=== PATIENT | male | born 1975 | race Caucasian/White ===

== ENCOUNTER 2017-08-13 16:34 | Inpatient (IN) | payer OTHER ==
[2017-08-13 16:59] VITALS: BMI 22.6
--- NOTE | 2017-08-13 18:00 | HP ---
COWS - Scale Resting Pulse: 2= SD 101-120 Sweatin=Flushed/Facial Moisture Restless Observation: 1= Difficult to Sit Still Pupil Size: 2= Moderately Dilated Bone or Joint Aches: 2= Severe Diffuse Aches Runny Nose/ Eye Tearin= Runny Nose/Eyes GI Upset > 30mins: 3= Vomiting/Diarrhea Tremor Observation: 2= Slight Tremor Visible Yawning Observation: 1= 1-2x During Session Anxiety or Irritability: 2=Irritable/Anxious Goose Flesh Skin: 0=Smooth Skin COWS Score: 19 Admission ROS S - HPI Chief Complaint: Withdrawal sx. Allergies/Adverse Reactions: Allergies Allergy/AdvReac Type Severity Reaction Status Date / Time shrimp Allergy Verified 04/08/17 17:08 History of Present Illness: 42 y/o man with a long hx. of heroin dependence is admitted for detox. Pt. was here in March 2017, remained drug x 3-6 weeks then relapsed. Exam Limitations: No Limitations - Ebola screening Have you traveled outside of the country in the last 21 days: No Have you had contact with anyone from an Ebola affected area: No Have you been sick,other than usual withdrawal symptoms: No Do you have a fever: No - Review of Systems Constitutional: Diaphoresis EENT: reports: No Symptoms Reported Respiratory: reports: No Symptoms reported Cardiac: reports: No Symptoms Reported GI: reports: Nausea, Vomiting, Abdominal cramping : reports: No Symptoms Reported Musculoskeletal: reports: Back Pain, Joint Pain, Muscle Pain Integumentary: reports: Flushing, Sweating Neuro: reports: Tremors Endocrine: reports: No Symptoms Reported Hematology: reports: No Symptoms Reported Psychiatric: reports: No Sypmtoms Reported Other Systems: Reviewed and Negative Patient History - Patient Medical History Hx Anemia: No Hx Asthma: Yes Hx Chronic Obstructive Pulmonary Disease (COPD): No Hx Cancer: No Hx Cardiac Disorders: No Hx Congestive Heart Failure: No Hx Hypertension: No Hx Hypercholesterolemia: No Hx Pacemaker: No HX Cerebrovascular Accident: No Hx Seizures: No Hx Dementia: No Hx Diabetes: No Hx Gastrointestinal Disorders: No Hx Liver Disease: No Hx Genitourinary Disorders: No Hx Sexually Transmitted Disorders: No Hx Renal Disease (ESRD): No Hx Thyroid Disease: No Hx Human Immunodeficiency Virus (HIV): No Hx Hepatitis C: No Hx Depression: No Hx Suicide Attempt: No Hx Bipolar Disorder: No Hx Schizophrenia: No - Patient Surgical History Past Surgical History: No - PPD History Date: 04/10/17 Results: 0 mm PPD to be Administered?: No - Smoking Cessation Smoking history: Current every day smoker Have you smoked in the past 12 months: Yes Aproximately how many cigarettes per day: 10 Hx Chewing Tobacco Use: No Initiated information on smoking cessation: Yes 'Breaking Loose' booklet given: 08/13/17 - Substance & Tx. History Hx Alcohol Use: No Hx Substance Use: Yes Substance Use Type: Heroin Hx Substance Use Treatment: Yes (Detox here in 03/2017) - Substances Abused Heroin Route: Inhalation Frequency: Daily Amount used: 12 bags Age of first use: 36 Date of Last Use: 08/13/17 Family Disease History - Family Disease History Family Disease History: Diabetes: Father (HTN,OR), Heart Disease: Father, Respiratory: Mother Admission Physical Exam [facility] - Vital Signs Vital Signs: Vital Signs - 24 hr 08/13/17 16:56 Temperature 97.5 F L Pulse Rate 112 H Respiratory 18 Rate Blood Pressure 120/72 - Physical General Appearance: Yes: Tremorous, Irritable, Sweating, Anxious HEENTM: Yes: Nasal Congestion, Rhinorrhea Respiratory: Yes: Chest Non-Tender, Lungs Clear, Normal Breath Sounds Neck: Yes: Supple Breast: Yes: Breast Exam Deferred Cardiology: Yes: Regular Rhythm, Regular Rate, S1, S2 Abdominal: Yes: Normal Bowel Sounds, Non Tender, Soft Genitourinary: Yes: Within Normal Limits Back: Yes: Within Normal Limits Musculoskeletal: Yes: Within Normal Limits Extremities: Yes: Tremors Neurological: Yes: Fully Oriented, Alert Integumentary: Yes: Diaphoresis Lymphatic: Yes: Within Normal Limits - Diagnostic (1) Opioid dependence with withdrawal Current Visit: Yes Status: Acute (2) Asthma Current Visit: Yes Status: Chronic Qualifiers: Asthma severity: mild intermittent Asthma complication type: uncomplicated Qualified Code(s): J45.20 - Mild intermittent asthma, uncomplicated; J45.20 - Mild intermittent asthma, uncomplicated; J45.20 - Mild intermittent asthma, uncomplicated Cleared for Admission B[facility] - Detox or Rehab [facility] Level of Care: Medically Managed Detox Regimen/Protocol: Methadone [facility] Breath Alcohol Content Breath Alcohol Content: 0 Urine Drug Screen - Results Drug Screen Negative: No Urine Drug Screen Results: OPI-Opiates
[2017-08-13] MEDS ORDERED: guaiFENesin/D-METHORPHAN HB 10 ML UNIT-DOSE CUPS PO PRN (18:05)
[2017-08-13] MEDS ORDERED: hydrOXYzine PAMOATE 50 MG CAPSULE (FP) PO PRN (18:05)
[2017-08-13] MEDS ORDERED: LOPERAMIDE HCL 2 MG CAPSULE PO PRN (18:05)
[2017-08-13] MEDS ORDERED: MAG HYDROX/AL HYDROX/SIMETH 30 ML UNIT-DOSE CUP PO PRN (18:05)
[2017-08-13] MEDS ORDERED: IBUPROFEN 400 MG TABLET (FP) PO PRN (18:05)
[2017-08-13] MEDS ORDERED: MAGNESIUM CITRATE 300 ML BOTTLE PO PRN (18:05)
[2017-08-13] MEDS ORDERED: MAGNESIUM HYDROX 2400MG/30ML ORAL SUSPENSION 30 ML CUP PO PRN (18:05)
[2017-08-13] MEDS ORDERED: NICOTINE POLACRILEX 2 MG GUM BC PRN (18:05)
[2017-08-13] MEDS ORDERED: METHADONE HCL 10 MG TABLET (FOR DETOX USE ONLY) PO ONE ×2 (18:05→23:00)
[2017-08-13] MEDS ORDERED: MENTHOL/PHENOL 1 EACH UD MM PRN (18:05)
[2017-08-13] MEDS ORDERED: P-EPHED 60MG/TRIPROLIDI 2.5MG TABLET PO PRN (18:05)
[2017-08-13] MEDS ORDERED: ACETAMINOPHEN 325 MG TABLET (FP) PO PRN (18:05)
[2017-08-13] MEDS ORDERED: ALBUTEROL SO4 18 GM HFA INHALER IH PRN (18:07)
[2017-08-13] MEDS: NICOTINE 21 MG/24 HOURS TOPICAL PATCH TD SCH (18:47)
[2017-08-13] MEDS: diazePAM 5 MG TABLET PO PRN (18:47)
[2017-08-13 20:00] LABS: URINE APPEARANCE SLCLOUDY; URINE BILIRUBIN NEGATIVE (NEGATIVE); URINE BLOOD 1+ (NEGATIVE); URINE COLOR YELLOW; URINE GLUCOSE (UA) NEGATIVE (NEGATIVE); URINE KETONE TRACE (NEGATIVE); URINE NITRITE NEGATIVE (NEGATIVE); URINE UROBILINOGEN NEGATIVE mg/dL (0.2-1.0)
[2017-08-13 20:07] LABS: URINE PROTEIN 1+ (NEGATIVE)
[2017-08-13 20:08] LABS: URINE HYALINE CAST 31 /lpf; URINE MUCUS MANY; URINE RBC 2 /hpf (0-3); URINE WBC 7 /hpf (3-5)
[2017-08-13] MEDS: diphenhydrAMINE HCL 50 MG CAPSULE PO PRN (22:36)
[2017-08-13] MEDS: THIAMINE HCL 100 MG TABLET (FP) PO SCH (22:36)
[2017-08-13 22:55] LABS: URINE LEUK ESTERASE Negative (NEGATIVE)
[2017-08-14] MEDS: diazePAM 5 MG TABLET PO PRN ×3 (06:52→20:21)
[2017-08-14 09:53] LABS: MCH 29.5 pg (25.7-33.7); MCHC 33.6 g/dl (32.0-35.9); MEAN PLT VOLUME 7.6 fl (7.5-11.1); PLATELET COUNT 252 K/MM3 (134-434); RDW 13.2 % (11.9-15.9); WHITE BLOOD COUNT 5.4 K/mm3 (4.0-10.0)
[2017-08-14 09:58] LABS: ALBUMIN 3.2 g/dl (3.4-5.0); ANION GAP 7 (8-16); CO2 27 mmol/L (21-32); CREATININE 0.8 mg/dL (0.7-1.3); GLUCOSE,RANDOM 81 mg/dL (74-106); SGOT/AST 14 U/L (15-37); SGPT/ALT 20 U/L (12-78); TOT PROT 5.8 g/dl (6.4-8.2)
[2017-08-14 09:59] LABS: ALK PHOS 86 U/L (45-117); BILIRUBIN,TOTAL 0.3 mg/dL (0.2-1.0)
[2017-08-14] MEDS ORDERED: METHADONE HCL 10 MG TABLET (FOR DETOX USE ONLY) PO ONE (10:00)
[2017-08-14] MEDS: PRENATAL VITAMINS W/ FOLIC ACID TABLET (FP) PO SCH (10:30)
[2017-08-14] MEDS: NICOTINE 21 MG/24 HOURS TOPICAL PATCH TD SCH (10:32)
--- NOTE | 2017-08-14 11:59 | PN ---
BHS COWS - Scale Resting Pulse: 0= AR 80 or Below Sweatin= Chills/Flushing Restless Observation: 3= Extraneous Movement Pupil Size: 0= Normal to Room Light Bone or Joint Aches: 4=Acute Joint/Muscle Pain Runny Nose/ Eye Tearin= Nasal Congestion GI Upset > 30mins: 1= Stomach Cramp Tremor Observation of Outstretched Hands: 2= Slight Tremor Visible Yawning Observation: 1= 1-2x During Session Anxiety or Irritability: 0= None Goose Flesh Skin: 0=Smooth Skin COWS Score: 13 BHS Progress Note (SOAP) Subjective: SLIGHT ANXIETY,CHILLS/SWEATS, FATIGUE, "SLUGGISH". Objective: 08/14/17 11:57 Vital Signs Temperature 98.1 F 08/14/17 10:15 Pulse Rate 67 08/14/17 10:15 Respiratory Rate 20 08/14/17 10:15 Blood Pressure 118/68 08/14/17 10:15 O2 Sat by Pulse Oximetry (%) Laboratory Last Values WBC 5.4 K/mm3 (4.0-10.0) 08/14/17 07:00 RBC 4.43 M/mm3 (4.00-5.60) 08/14/17 07:00 Hgb 13.1 GM/dL (11.7-16.9) 08/14/17 07:00 Hct 39.0 % (35.4-49) 08/14/17 07:00 MCV 88.0 fl (80-96) 08/14/17 07:00 MCH 29.5 pg (25.7-33.7) 08/14/17 07:00 MCHC 33.6 g/dl (32.0-35.9) 08/14/17 07:00 RDW 13.2 % (11.9-15.9) 08/14/17 07:00 Plt Count 252 K/MM3 (134-434) 08/14/17 07:00 MPV 7.6 fl (7.5-11.1) 08/14/17 07:00 Sodium 137 mmol/L (136-145) 08/14/17 07:00 Potassium 4.3 mmol/L (3.5-5.1) 08/14/17 07:00 Chloride 103 mmol/L (98-107) 08/14/17 07:00 Carbon Dioxide 27 mmol/L (21-32) 08/14/17 07:00 Anion Gap 7 (8-16) L 08/14/17 07:00 BUN 19 mg/dL (7-18) H D 08/14/17 07:00 Creatinine 0.8 mg/dL (0.7-1.3) 08/14/17 07:00 Creat Clearance w eGFR > 60 (>60) 08/14/17 07:00 Random Glucose 81 mg/dL (74-106) 08/14/17 07:00 Calcium 8.0 mg/dL (8.5-10.1) L 08/14/17 07:00 Total Bilirubin 0.3 mg/dL (0.2-1.0) D 08/14/17 07:00 AST 14 U/L (15-37) L D 08/14/17 07:00 ALT 20 U/L (12-78) D 08/14/17 07:00 Alkaline Phosphatase 86 U/L (45-117) 08/14/17 07:00 Total Protein 5.8 g/dl (6.4-8.2) L 08/14/17 07:00 Albumin 3.2 g/dl (3.4-5.0) L 08/14/17 07:00 Urine Color Yellow 08/13/17 18:36 Urine Appearance Slcloudy 08/13/17 18:36 Urine pH 6.0 (5.0-8.0) 08/13/17 18:36 Ur Specific [place] 1.015 (1.005-1.025) 08/13/17 18:36 Urine Protein 1+ (NEGATIVE) H 08/13/17 18:36 Urine Glucose (UA) Negative (NEGATIVE) 08/13/17 18:36 Urine Ketones Trace (NEGATIVE) H 08/13/17 18:36 Urine Blood 1+ (NEGATIVE) H 08/13/17 18:36 Urine Nitrite Negative (NEGATIVE) 08/13/17 18:36 Urine Bilirubin Negative (NEGATIVE) 08/13/17 18:36 Urine Urobilinogen Negative mg/dL (0.2-1.0) 08/13/17 18:36 Ur Leukocyte Esterase Negative (NEGATIVE) 08/13/17 18:36 Urine RBC 2 /hpf (0-3) 08/13/17 18:36 Urine WBC 7 /hpf (3-5) 08/13/17 18:36 Ur Epithelial Cells Rare /hpf (FEW) 08/13/17 18:36 Hyaline Casts 31 /lpf 08/13/17 18:36 Urine Mucus Many 08/13/17 18:36 RPR Titer Nonreactive (NONREACTIVE) 08/14/17 07:00 Assessment: 08/14/17 11:59 WITHDRAWAL SX Plan: CONTINUE DETOX INCREASE PO FLUIDS.
[2017-08-14] MEDS ORDERED: PNEUMOCOCCAL 23 VACCINE 0.5 ML VIAL IM ONE (12:00)
[2017-08-14] MEDS ORDERED: PNEUMOC 13-VAL CONJ-DIP CRM/PF 0.5 ML DISP.SYRIN IM ONE (12:00)
--- NOTE | 2017-08-14 14:52 | EKG ---
Test Reason : Blood Pressure : / mmHG Vent. Rate : 063 BPM Atrial Rate : 063 BPM P-R Int : 134 ms QRS Dur : 088 ms QT Int : 406 ms P-R-T Axes : 043 071 045 degrees QTc Int : 415 ms NORMAL SINUS RHYTHM NORMAL ECG WHEN COMPARED WITH ECG OF 08-APR-2017 17:28, NO SIGNIFICANT CHANGE WAS FOUND Confirmed by RANDY THIBODEAUX MD ([id number]) on 08/14/2017 2:52:37 PM Referred By: Confirmed By:RANDY THIBODEAUX MD
[2017-08-14] MEDS: diphenhydrAMINE HCL 50 MG CAPSULE PO PRN (22:11)
[2017-08-14] MEDS: THIAMINE HCL 100 MG TABLET (FP) PO SCH (22:11)
[2017-08-15] MEDS: diazePAM 5 MG TABLET PO PRN ×4 (04:43→22:07)
[2017-08-15] MEDS ORDERED: METHADONE HCL 5 MG TABLET (FOR DETOX USE ONLY) PO ONE (10:00)
[2017-08-15] MEDS: PRENATAL VITAMINS W/ FOLIC ACID TABLET (FP) PO SCH (10:35)
[2017-08-15] MEDS: NICOTINE 21 MG/24 HOURS TOPICAL PATCH TD SCH (10:36)
--- NOTE | 2017-08-15 10:59 | PN ---
BHS COWS - Scale Resting Pulse: 1= [place] 81-100 Sweatin= Chills/Flushing Restless Observation: 3= Extraneous Movement Pupil Size: 0= Normal to Room Light Bone or Joint Aches: 4=Acute Joint/Muscle Pain Runny Nose/ Eye Tearin= Nasal Congestion GI Upset > 30mins: 1= Stomach Cramp Tremor Observation of Outstretched Hands: 1= Tremor [place], Not Seen Yawning Observation: 1= 1-2x During Session Anxiety or Irritability: 2=Irritable/Anxious Goose Flesh Skin: 0=Smooth Skin COWS Score: 15 BHS Progress Note (SOAP) Subjective: ANXIETY,SWEATS,FATIGUE. Objective: 08/15/17 10:59 Vital Signs Temperature 98.7 F 08/15/17 09:35 Pulse Rate 89 08/15/17 09:35 Respiratory Rate 18 08/15/17 09:35 Blood Pressure 132/88 08/15/17 09:35 O2 Sat by Pulse Oximetry (%) Laboratory Last Values WBC 5.4 K/mm3 (4.0-10.0) 08/14/17 07:00 RBC 4.43 M/mm3 (4.00-5.60) 08/14/17 07:00 Hgb 13.1 GM/dL (11.7-16.9) 08/14/17 07:00 Hct 39.0 % (35.4-49) 08/14/17 07:00 MCV 88.0 fl (80-96) 08/14/17 07:00 MCH 29.5 pg (25.7-33.7) 08/14/17 07:00 MCHC 33.6 g/dl (32.0-35.9) 08/14/17 07:00 RDW 13.2 % (11.9-15.9) 08/14/17 07:00 Plt Count 252 K/MM3 (134-434) 08/14/17 07:00 MPV 7.6 fl (7.5-11.1) 08/14/17 07:00 Sodium 137 mmol/L (136-145) 08/14/17 07:00 Potassium 4.3 mmol/L (3.5-5.1) 08/14/17 07:00 Chloride 103 mmol/L (98-107) 08/14/17 07:00 Carbon Dioxide 27 mmol/L (21-32) 08/14/17 07:00 Anion Gap 7 (8-16) L 08/14/17 07:00 BUN 19 mg/dL (7-18) H D 08/14/17 07:00 Creatinine 0.8 mg/dL (0.7-1.3) 08/14/17 07:00 Creat Clearance w eGFR > 60 (>60) 08/14/17 07:00 Random Glucose 81 mg/dL (74-106) 08/14/17 07:00 Calcium 8.0 mg/dL (8.5-10.1) L 08/14/17 07:00 Total Bilirubin 0.3 mg/dL (0.2-1.0) D 08/14/17 07:00 AST 14 U/L (15-37) L D 08/14/17 07:00 ALT 20 U/L (12-78) D 08/14/17 07:00 Alkaline Phosphatase 86 U/L (45-117) 08/14/17 07:00 Total Protein 5.8 g/dl (6.4-8.2) L 08/14/17 07:00 Albumin 3.2 g/dl (3.4-5.0) L 08/14/17 07:00 Urine Color Yellow 08/13/17 18:36 Urine Appearance Slcloudy 08/13/17 18:36 Urine pH 6.0 (5.0-8.0) 08/13/17 18:36 Ur Specific [place] 1.015 (1.005-1.025) 08/13/17 18:36 Urine Protein 1+ (NEGATIVE) H 08/13/17 18:36 Urine Glucose (UA) Negative (NEGATIVE) 08/13/17 18:36 Urine Ketones Trace (NEGATIVE) H 08/13/17 18:36 Urine Blood 1+ (NEGATIVE) H 08/13/17 18:36 Urine Nitrite Negative (NEGATIVE) 08/13/17 18:36 Urine Bilirubin Negative (NEGATIVE) 08/13/17 18:36 Urine Urobilinogen Negative mg/dL (0.2-1.0) 08/13/17 18:36 Ur Leukocyte Esterase Negative (NEGATIVE) 08/13/17 18:36 Urine RBC 2 /hpf (0-3) 08/13/17 18:36 Urine WBC 7 /hpf (3-5) 08/13/17 18:36 Ur Epithelial Cells Rare /hpf (FEW) 08/13/17 18:36 Hyaline Casts 31 /lpf 08/13/17 18:36 Urine Mucus Many 08/13/17 18:36 RPR Titer Nonreactive (NONREACTIVE) 08/14/17 07:00 Assessment: 08/15/17 10:59 WITHDRAWAL SX Plan: CONTINUE DETOX INCREASE PO FLUIDS.
[2017-08-15] MEDS: THIAMINE HCL 100 MG TABLET (FP) PO SCH (22:07)
[2017-08-15] MEDS: diphenhydrAMINE HCL 50 MG CAPSULE PO PRN (22:07)
[2017-08-16] MEDS: diazePAM 5 MG TABLET PO PRN ×3 (02:27→15:10)
[2017-08-16] MEDS ORDERED: METHADONE HCL 5 MG TABLET (FOR DETOX USE ONLY) PO ONE (10:00)
[2017-08-16] MEDS: PRENATAL VITAMINS W/ FOLIC ACID TABLET (FP) PO SCH (10:41)
[2017-08-16] MEDS: NICOTINE 21 MG/24 HOURS TOPICAL PATCH TD SCH (10:41)
--- NOTE | 2017-08-16 15:22 | PN ---
BHS Progress Note (SOAP) Subjective: Tremors, Interrupted sleep, Anxious. Objective: PT. A & O X 3. NO ACUTE DISTRESS. PT. DENIES CHEST PAIN. 08/16/17 15:21 Vital Signs Temperature 98.2 F 08/16/17 13:41 Pulse Rate 92 H 08/16/17 13:41 Respiratory Rate 16 08/16/17 13:41 Blood Pressure 130/87 08/16/17 13:41 O2 Sat by Pulse Oximetry (%) Laboratory Tests 08/13/17 08/14/17 08/14/17 18:36 07:00 07:00 WBC 5.4 RBC 4.43 Hgb 13.1 Hct 39.0 MCV 88.0 MCH 29.5 MCHC 33.6 RDW 13.2 Plt Count 252 MPV 7.6 Sodium 137 Potassium 4.3 Chloride 103 Carbon Dioxide 27 Anion Gap 7 L BUN 19 H D Creatinine 0.8 Creat Clearance w eGFR > 60 Random Glucose 81 Calcium 8.0 L Total Bilirubin 0.3 D AST 14 L D ALT 20 D Alkaline Phosphatase 86 Total Protein 5.8 L Albumin 3.2 L Urine Color Yellow Urine Appearance Slcloudy Urine pH 6.0 Ur Specific [place] 1.015 Urine Protein 1+ H Urine Glucose (UA) Negative Urine Ketones Trace H Urine Blood 1+ H Urine Nitrite Negative Urine Bilirubin Negative Urine Urobilinogen Negative Ur Leukocyte Esterase Negative Urine RBC 2 Urine WBC 7 Ur Epithelial Cells Rare Hyaline Casts 31 Urine Mucus Many RPR Titer 08/14/17 07:00 WBC RBC Hgb Hct MCV MCH MCHC RDW Plt Count MPV Sodium Potassium Chloride Carbon Dioxide Anion Gap BUN Creatinine Creat Clearance w eGFR Random Glucose Calcium Total Bilirubin AST ALT Alkaline Phosphatase Total Protein Albumin Urine Color Urine Appearance Urine pH Ur Specific [place] Urine Protein Urine Glucose (UA) Urine Ketones Urine Blood Urine Nitrite Urine Bilirubin Urine Urobilinogen Ur Leukocyte Esterase Urine RBC Urine WBC Ur Epithelial Cells Hyaline Casts Urine Mucus RPR Titer Nonreactive LABS NOTED. Assessment: 08/16/17 15:21 WITHDRAWAL SYMPTOMS. Plan: CONTINUE DETOX.
[2017-08-16] MEDS: diphenhydrAMINE HCL 50 MG CAPSULE PO PRN (22:02)
[2017-08-16] MEDS: THIAMINE HCL 100 MG TABLET (FP) PO SCH (22:02)
[2017-08-17] MEDS ORDERED: METHADONE HCL 10 MG TABLET (FOR DETOX USE ONLY) PO ONE (10:00)
[2017-08-17] MEDS: NICOTINE 21 MG/24 HOURS TOPICAL PATCH TD SCH (10:40)
[2017-08-17] MEDS: PRENATAL VITAMINS W/ FOLIC ACID TABLET (FP) PO SCH (10:40)
--- NOTE | 2017-08-17 13:32 | PN ---
BHS Progress Note (SOAP) Subjective: Sweating, Tremors, Fatigue. Objective: PT. A & O X 3. NO ACUTE DISTRESS. 08/17/17 13:30 Vital Signs Temperature 98.8 F 08/17/17 09:13 Pulse Rate 79 08/17/17 09:13 Respiratory Rate 18 08/17/17 09:13 Blood Pressure 129/85 08/17/17 09:13 O2 Sat by Pulse Oximetry (%) Laboratory Tests 08/13/17 08/14/17 08/14/17 18:36 07:00 07:00 WBC 5.4 RBC 4.43 Hgb 13.1 Hct 39.0 MCV 88.0 MCH 29.5 MCHC 33.6 RDW 13.2 Plt Count 252 MPV 7.6 Sodium 137 Potassium 4.3 Chloride 103 Carbon Dioxide 27 Anion Gap 7 L BUN 19 H D Creatinine 0.8 Creat Clearance w eGFR > 60 Random Glucose 81 Calcium 8.0 L Total Bilirubin 0.3 D AST 14 L D ALT 20 D Alkaline Phosphatase 86 Total Protein 5.8 L Albumin 3.2 L Urine Color Yellow Urine Appearance Slcloudy Urine pH 6.0 Ur Specific [place] 1.015 Urine Protein 1+ H Urine Glucose (UA) Negative Urine Ketones Trace H Urine Blood 1+ H Urine Nitrite Negative Urine Bilirubin Negative Urine Urobilinogen Negative Ur Leukocyte Esterase Negative Urine RBC 2 Urine WBC 7 Ur Epithelial Cells Rare Hyaline Casts 31 Urine Mucus Many RPR Titer 08/14/17 07:00 WBC RBC Hgb Hct MCV MCH MCHC RDW Plt Count MPV Sodium Potassium Chloride Carbon Dioxide Anion Gap BUN Creatinine Creat Clearance w eGFR Random Glucose Calcium Total Bilirubin AST ALT Alkaline Phosphatase Total Protein Albumin Urine Color Urine Appearance Urine pH Ur Specific [place] Urine Protein Urine Glucose (UA) Urine Ketones Urine Blood Urine Nitrite Urine Bilirubin Urine Urobilinogen Ur Leukocyte Esterase Urine RBC Urine WBC Ur Epithelial Cells Hyaline Casts Urine Mucus RPR Titer Nonreactive LABS NOTED. Assessment: 08/17/17 13:31 WITHDRAWAL SYMPTOMS. Plan: CONTINUE DETOX.
[2017-08-17] MEDS: diphenhydrAMINE HCL 50 MG CAPSULE PO PRN (22:09)
[2017-08-17] MEDS: THIAMINE HCL 100 MG TABLET (FP) PO SCH (22:37)
[2017-08-18] MEDS ORDERED: METHADONE HCL 5 MG TABLET (FOR DETOX USE ONLY) PO ONE (06:00)
[2017-08-18 06:06] VITALS: BP 137/70; PULSE 62; TEMP 97.3
--- NOTE | 2017-08-18 11:49 | DS ---
[facility] Detox Discharge Summary Admission Date: 08/13/17 Discharge Date: 08/18/17 - History Present History: Opioid Dependence Additional Comments: PATIENT ADVISED TO FOLLOW-UP WITH LOCAL 12-STEP / NA OUTPATIENT PROGRAM AFTER DISCHARGE FROM DETOX FOR AFTERCARE. PATIENT WAS DISCHARGED FROM DETOX UNIT IN STABLE MEDICAL CONDITION. Pertinent Past History: Asthma, Nicotine Dependence. - Physical Exam Results Vital Signs: Vital Signs Temperature 97.3 F L 08/18/17 06:05 Pulse Rate 62 08/18/17 06:05 Respiratory Rate 18 08/18/17 06:05 Blood Pressure 137/70 08/18/17 06:05 O2 Sat by Pulse Oximetry (%) Pertinent Admission Physical Exam Findings: WITHDRAWAL SYMPTOMS. Laboratory Tests 08/13/17 08/14/17 08/14/17 18:36 07:00 07:00 WBC 5.4 RBC 4.43 Hgb 13.1 Hct 39.0 MCV 88.0 MCH 29.5 MCHC 33.6 RDW 13.2 Plt Count 252 MPV 7.6 Sodium 137 Potassium 4.3 Chloride 103 Carbon Dioxide 27 Anion Gap 7 L BUN 19 H D Creatinine 0.8 Creat Clearance w eGFR > 60 Random Glucose 81 Calcium 8.0 L Total Bilirubin 0.3 D AST 14 L D ALT 20 D Alkaline Phosphatase 86 Total Protein 5.8 L Albumin 3.2 L Urine Color Yellow Urine Appearance Slcloudy Urine pH 6.0 Ur Specific [place] 1.015 Urine Protein 1+ H Urine Glucose (UA) Negative Urine Ketones Trace H Urine Blood 1+ H Urine Nitrite Negative Urine Bilirubin Negative Urine Urobilinogen Negative Ur Leukocyte Esterase Negative Urine RBC 2 Urine WBC 7 Ur Epithelial Cells Rare Hyaline Casts 31 Urine Mucus Many RPR Titer 08/14/17 07:00 WBC RBC Hgb Hct MCV MCH MCHC RDW Plt Count MPV Sodium Potassium Chloride Carbon Dioxide Anion Gap BUN Creatinine Creat Clearance w eGFR Random Glucose Calcium Total Bilirubin AST ALT Alkaline Phosphatase Total Protein Albumin Urine Color Urine Appearance Urine pH Ur Specific [place] Urine Protein Urine Glucose (UA) Urine Ketones Urine Blood Urine Nitrite Urine Bilirubin Urine Urobilinogen Ur Leukocyte Esterase Urine RBC Urine WBC Ur Epithelial Cells Hyaline Casts Urine Mucus RPR Titer Nonreactive LABS NOTED. - Treatment Hospital Course: Detox Protocol Followed, Detoxed Safely, Responded well, Discharged Condition Good Patient has Accepted a Rehab Referral to: NO. PT ADVISED TO FOLLOW-UP WITH LOCAL 12-STEP/NA GROUPS FOR AFTERCARE. - Medication Discharge Medications: Ambulatory Orders Albuterol Sulfate Inhaler - [Ventolin HFA Inhaler -] 2 inh PO Q4H PRN 04/08/17 - Diagnosis (1) Opioid dependence with withdrawal Status: Acute (2) Asthma Status: Chronic Qualifiers: Asthma severity: mild Asthma persistence: intermittent Asthma complication type: uncomplicated Qualified Code(s): J45.20 - Mild intermittent asthma, uncomplicated; J45.20 - Mild intermittent asthma, uncomplicated; J45.20 - Mild intermittent asthma, uncomplicated - AMA Did Patient Leave Against Medical Advice: No
== END 2017-08-18 09:20 | disposition home or self-care (01) | DRG 773 ==
LOC: YASAS 16:34 → Y3N 17:58 → MERGE 17:58
PROVIDERS: ADMIT Internal Medicine; ATTEND Internal Medicine
PROC: HZ2ZZZZ Detoxification Services for Substance Abuse Treatment (ICD-10-PCS; principal; 2017-08-13)
DX: F11.23 Opioid dependence with withdrawal (principal); F12.20 Cannabis dependence, uncomplicated; F17.210 Nicotine dependence, cigarettes, uncomplicated; J45.20 Mild intermittent asthma, uncomplicated; Z91.013 Allergy to seafood
CPT/HCPCS: 36415; 80053; 81003; 81015; 85027; 86593; 93005; 93010

== ENCOUNTER 2017-08-28 09:38 | Inpatient (IN) | payer OTHER ==
[2017-08-28 10:41] VITALS: BMI 25.0
[2017-08-28] MEDS ORDERED: IBUPROFEN 400 MG TABLET (FP) PO PRN (14:28)
[2017-08-28] MEDS ORDERED: guaiFENesin/D-METHORPHAN HB 10 ML UNIT-DOSE CUPS PO PRN (14:28)
[2017-08-28] MEDS ORDERED: MAG HYDROX/AL HYDROX/SIMETH 30 ML UNIT-DOSE CUP PO PRN (14:28)
[2017-08-28] MEDS ORDERED: MENTHOL/PHENOL 1 EACH UD MM PRN (14:28)
[2017-08-28] MEDS ORDERED: MAGNESIUM HYDROX 2400MG/30ML ORAL SUSPENSION 30 ML CUP PO PRN (14:28)
[2017-08-28] MEDS ORDERED: P-EPHED 60MG/TRIPROLIDI 2.5MG TABLET PO PRN (14:28)
[2017-08-28] MEDS ORDERED: LOPERAMIDE HCL 2 MG CAPSULE PO PRN (14:28)
[2017-08-28] MEDS ORDERED: MAGNESIUM CITRATE 300 ML BOTTLE PO PRN (14:28)
[2017-08-28] MEDS ORDERED: NICOTINE POLACRILEX 4 MG GUM BUC PRN (14:28)
[2017-08-28] MEDS ORDERED: ALBUTEROL SO4 18 GM HFA INHALER IH PRN (14:31)
[2017-08-28 21:09] LABS: PH,URINE 7.5 (5.0-8.0); URINE APPEARANCE CLEAR; URINE BILIRUBIN NEGATIVE (NEGATIVE); URINE COLOR LT. YELLOW; URINE GLUCOSE (UA) NEGATIVE (NEGATIVE); URINE KETONE TRACE (NEGATIVE); URINE NITRITE NEGATIVE (NEGATIVE); URINE PROTEIN NEGATIVE (NEGATIVE); URINE UROBILINOGEN 0.2 mg/dL (0.2-1.0)
[2017-08-28] MEDS: ALBUTEROL SO4 2.5/IPRATROPIUM 0.5 INH SOL 3 ML VIAL.NEB. NEB SCH (21:15)
[2017-08-28] MEDS: hydrOXYzine PAMOATE 50 MG CAPSULE (FP) PO PRN (21:16)
[2017-08-28] MEDS: THIAMINE HCL 100 MG TABLET (FP) PO SCH (21:16)
[2017-08-28 21:23] LABS: URINE BLOOD 1+ (NEGATIVE)
[2017-08-28 21:58] LABS: URINE BACTERIA FEW /hpf (NONE SEEN); URINE HYALINE CAST 3 /lpf; URINE MUCUS MANY; URINE WBC <1 /hpf (3-5)
[2017-08-28 22:53] LABS: URINE LEUK ESTERASE Negative (NEGATIVE)
[2017-08-29] MEDS: hydrOXYzine PAMOATE 50 MG CAPSULE (FP) PO PRN ×5 (01:31→19:06)
[2017-08-29] MEDS: ALBUTEROL SO4 2.5/IPRATROPIUM 0.5 INH SOL 3 ML VIAL.NEB. NEB SCH ×4 (06:13→21:12)
--- NOTE | 2017-08-29 07:39 | HP ---
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 Smokes 10 cigarettes daily Psychiatric History: Denies history of previous psychiatric treatment Physical/Sexual Abuse/Trauma History: Denies history of verbal, physical or sexual abuse as well as DV relationship. No service Additional Comment: Reports history of a few misdemeanor arrests. No probatio currently Vital Signs: Vital Signs - 24 hr 08/28/17 08/29/17 08/29/17 10:40 00:30 03:30 Temperature 98.8 F Pulse Rate 102 H Respiratory 20 18 18 Rate Blood Pressure 122/77 08/29/17 06:47 Temperature 98.5 F Pulse Rate 60 Respiratory 18 Rate Blood Pressure 141/80 Allergies/Adverse Reactions: Allergies Allergy/AdvReac Type Severity Reaction Status Date / Time shellfish derived Allergy Severe Swelling Verified 08/28/17 14:13 No Known Drug Allergies Allergy Verified 08/28/17 14:13 Date of last physical exam: 09/13/17 Concur with the findings of this exam: Yes - Substance Abuse/Tx History Hx Alcohol Use: No Hx Substance Use: Yes Substance Use Type: Heroin (Started using heroi at age 36, consumes 12 bags daily. Last used on 08/13/17) Hx Substance Use Treatment: Yes (6 previous inpt detox admission @ [facility]) Mental Status Exam - Mental Status Exam Alert and Oriented to: Time, Place, Person Cognitive Function: Fair Patient Appearance: Well Groomed Mood: Anxious Affect: Appropriate Patient Behavior: Cooperative Speech Pattern: Clear Voice Loudness: Normal Thought Process: Intact, Goal Oriented Thought Disorder: Not Present Hallucinations: Denies Suicidal Ideation: Denies Homicidal Ideation: Denies Insight/Judgement: Fair Sleep: Poorly Appetite: Good Muscle strength/Tone: Normal Gait/Station: Normal Psychiatric Findings - Problem List ([place] 1, 2,3) (1) Opioid dependence Current Visit: No Status: Chronic (2) Nicotine dependence Current Visit: Yes Status: Chronic Qualifiers: Nicotine product type: cigarettes Substance use status: uncomplicated Qualified Code(s): F17.210 - Nicotine dependence, cigarettes, uncomplicated; F17.210 - Nicotine dependence, cigarettes, uncomplicated (3) Substance-induced anxiety disorder Current Visit: Yes Status: Acute (4) Substance-induced sleep disorder Current Visit: Yes Status: Acute (5) Asthma Current Visit: Yes Status: Chronic Qualifiers: Asthma severity: mild - Initial Treatment Plan Initial Treatment Plan: 1) Start Benadryl 100 mg po HS for insomnia. 2) Monitor progress
[2017-08-29] MEDS: NICOTINE 21 MG/24 HOURS TOPICAL PATCH TD SCH (09:58)
[2017-08-29] MEDS: PRENATAL VITAMINS W/ FOLIC ACID TABLET (FP) PO SCH (09:58)
[2017-08-29] MEDS ORDERED: ONDANSETRON *ODT* 4 MG TABLET SL PRN (13:44)
[2017-08-29] MEDS: ACETAMINOPHEN 325 MG TABLET (FP) PO PRN (13:51)
[2017-08-29] MEDS ORDERED: ONDANSETRON *ODT* 4 MG TABLET SL ONE (14:15)
[2017-08-29] MEDS: NAPROXEN 500 MG TABLET (FP) PO SCH ×2 (14:35→21:11)
[2017-08-29] MEDS: cloNIDine HCL 0.1 MG TABLET PO SCH ×2 (14:35→21:11)
[2017-08-29] MEDS: CYCLOBENZAPRINE HCL 10 MG TABLET (FP) PO SCH ×2 (14:35→21:11)
[2017-08-29] MEDS: BUPRENORPHINE/NALOXONE 2 MG/0.5 MG FILM PACKET SL SCH (14:35)
--- NOTE | 2017-08-29 17:24 | PN ---
[facility] Progress Note Note: Pateint reports relapsing s/p detox prior to being readmitted for rehab, no c/o opioid withdrawal sx. Lives in [place] agrees to symptomatic relief of withdrawal and suboxone treatment. discussed risks and benefits of suboxone, advised on how to take medication. nursing informed will follow up at [facility] when discharged if he chooses to continue suboxonemaintenance. If tolerates 2mg initial dose can adjust dose until he no longer experience cravings or withdrawal sx in rehab.
--- NOTE | 2017-08-29 17:25 | HP ---
[facility] Rehab Assess/Revision - Admission History Admitted to Rehab from: [facility] Date of Admission to Rehab: 08/28/2017 - Vital signs Vital Signs: Vital Signs Period Temp Pulse Resp BP Sys/Batista Pulse Ox Last 24 Hr 98.5 F 60 18-18 141/80 - Findings Detox History & Physical reviewed: Yes Concur with findings: Yes Inpatient Rehab Admission - Initial Determination Are CD services needed?: Yes Free of communicable disease: Yes Not in need of hospitalization: Yes - Rehab Admission Criteria Poor recovery environment: Yes Lacks judgement: Yes Patient is meeting Inpatient Rehab admission criteria:: Yes
[2017-08-29] MEDS: THIAMINE HCL 100 MG TABLET (FP) PO SCH (21:11)
[2017-08-29] MEDS: diphenhydrAMINE HCL 50 MG CAPSULE PO PRN (21:11)
--- NOTE | 2017-08-29 21:24 | EKG ---
Test Reason : Blood Pressure : / mmHG Vent. Rate : 068 BPM Atrial Rate : 068 BPM P-R Int : 136 ms QRS Dur : 082 ms QT Int : 412 ms P-R-T Axes : 059 076 059 degrees QTc Int : 438 ms NORMAL SINUS RHYTHM ATRIAL ABNORMALITY WHEN COMPARED WITH ECG OF 29-AUG-2017 06:52, CRITERIA FOR INFERIOR INFARCT ARE NO LONGER PRESENT T WAVE INVERSION NO LONGER EVIDENT IN INFERIOR LEADS Confirmed by YA CASTAÑEDA MD ([id number] on 08/29/2017 9:24:37 PM Referred By: Confirmed By:YA CASTAÑEDA MD
--- NOTE | 2017-08-29 21:27 | EKG ---
Test Reason : Blood Pressure : / mmHG Vent. Rate : 060 BPM Atrial Rate : 060 BPM P-R Int : 142 ms QRS Dur : 084 ms QT Int : 436 ms P-R-T Axes : 001 -15 003 degrees QTc Int : 436 ms NORMAL SINUS RHYTHM INFERIOR INFARCT , AGE UNDETERMINED ABNORMAL ECG NO PREVIOUS ECGS AVAILABLE Confirmed by YA CASTAÑEDA MD ([id number] on 08/29/2017 9:26:33 PM Referred By: Confirmed By:YA CASTAÑEDA MD
[2017-08-30] MEDS: CYCLOBENZAPRINE HCL 10 MG TABLET (FP) PO SCH ×3 (06:00→21:15)
[2017-08-30] MEDS: ALBUTEROL SO4 2.5/IPRATROPIUM 0.5 INH SOL 3 ML VIAL.NEB. NEB SCH ×2 (06:00)
[2017-08-30] MEDS: NICOTINE 21 MG/24 HOURS TOPICAL PATCH TD SCH (09:56)
[2017-08-30] MEDS: PRENATAL VITAMINS W/ FOLIC ACID TABLET (FP) PO SCH (09:56)
[2017-08-30] MEDS: cloNIDine HCL 0.1 MG TABLET PO SCH ×2 (09:56→21:16)
[2017-08-30] MEDS: NAPROXEN 500 MG TABLET (FP) PO SCH ×2 (09:56→21:16)
[2017-08-30] MEDS: BUPRENORPHINE/NALOXONE 2 MG/0.5 MG FILM PACKET SL SCH ×3 (09:56→12:30)
--- NOTE | 2017-08-30 11:54 | PN ---
S Progress Note (SOAP) Subjective: c/o anxiety, fatigue, insomnia, suboxone yesterday appears to have made it worse but patient stayed instead of signing out AMA, has chills and body aches still Objective: 08/30/17 11:52 Vital Signs - 24 hr 08/29/17 08/30/17 08/30/17 20:19 03:30 07:37 Temperature 98.2 F Pulse Rate 57 L 63 Respiratory 18 20 Rate Blood Pressure 146/89 143/98 08/30/17 09:30 Temperature Pulse Rate 81 Respiratory Rate Blood Pressure 130/93 Laboratory Tests 08/28/17 15:40 Urine Color Lt. yellow Urine Appearance Clear Urine pH 7.5 D Ur Specific [place] 1.015 Urine Protein Negative Urine Glucose (UA) Negative Urine Ketones Trace H Urine Blood 1+ H Urine Nitrite Negative Urine Bilirubin Negative Urine Urobilinogen 0.2 Ur Leukocyte Esterase Negative Urine RBC 40-60 Urine WBC <1 Ur Epithelial Cells Rare Urine Bacteria Few Hyaline Casts 3 Urine Mucus Many anxious, pale, sweaty Assessment: 08/30/17 11:53 opiodi withdrawal , no wheezing asthma controlled Plan: increase suboxone, symptomatic relief, fluids, d/c scheduled nebulizer treatments at patient request.
[2017-08-30] MEDS ORDERED: ALBUTEROL SO4 2.5/IPRATROPIUM 0.5 INH SOL 3 ML VIAL.NEB. NEB SCH (12:00)
[2017-08-30] MEDS: THIAMINE HCL 100 MG TABLET (FP) PO SCH (21:15)
[2017-08-30] MEDS: diphenhydrAMINE HCL 50 MG CAPSULE PO PRN (21:16)
[2017-08-31] MEDS: CYCLOBENZAPRINE HCL 10 MG TABLET (FP) PO SCH ×3 (06:04→22:22)
[2017-08-31] MEDS: cloNIDine HCL 0.1 MG TABLET PO SCH ×2 (10:46→22:22)
[2017-08-31] MEDS: NICOTINE 21 MG/24 HOURS TOPICAL PATCH TD SCH (10:46)
[2017-08-31] MEDS: NAPROXEN 500 MG TABLET (FP) PO SCH ×2 (10:46→22:22)
[2017-08-31] MEDS: BUPRENORPHINE/NALOXONE 2 MG/0.5 MG FILM PACKET SL SCH (10:47)
[2017-08-31] MEDS: PRENATAL VITAMINS W/ FOLIC ACID TABLET (FP) PO SCH (10:47)
[2017-08-31] MEDS: THIAMINE HCL 100 MG TABLET (FP) PO SCH (22:22)
[2017-08-31] MEDS: diphenhydrAMINE HCL 50 MG CAPSULE PO PRN (22:24)
[2017-09-01] MEDS: CYCLOBENZAPRINE HCL 10 MG TABLET (FP) PO SCH ×3 (06:03→21:13)
[2017-09-01] MEDS: NAPROXEN 500 MG TABLET (FP) PO SCH ×2 (09:47→21:19)
[2017-09-01] MEDS: PRENATAL VITAMINS W/ FOLIC ACID TABLET (FP) PO SCH (09:47)
[2017-09-01] MEDS: cloNIDine HCL 0.1 MG TABLET PO SCH ×2 (09:47→21:13)
[2017-09-01] MEDS: NICOTINE 21 MG/24 HOURS TOPICAL PATCH TD SCH (09:48)
[2017-09-01] MEDS: BUPRENORPHINE/NALOXONE 2 MG/0.5 MG FILM PACKET SL SCH ×2 (09:49→13:36)
[2017-09-01] MEDS: THIAMINE HCL 100 MG TABLET (FP) PO SCH (21:13)
[2017-09-02] MEDS: CYCLOBENZAPRINE HCL 10 MG TABLET (FP) PO SCH ×3 (05:52→21:08)
[2017-09-02] MEDS: cloNIDine HCL 0.1 MG TABLET PO SCH ×2 (09:48→21:08)
[2017-09-02] MEDS: NICOTINE 21 MG/24 HOURS TOPICAL PATCH TD SCH (09:48)
[2017-09-02] MEDS: NAPROXEN 500 MG TABLET (FP) PO SCH ×2 (09:48→21:08)
[2017-09-02] MEDS: PRENATAL VITAMINS W/ FOLIC ACID TABLET (FP) PO SCH (09:49)
[2017-09-02] MEDS: BUPRENORPHINE/NALOXONE 2 MG/0.5 MG FILM PACKET SL SCH (09:49)
[2017-09-02] MEDS: THIAMINE HCL 100 MG TABLET (FP) PO SCH (21:08)
[2017-09-02] MEDS: diphenhydrAMINE HCL 50 MG CAPSULE PO PRN (21:09)
[2017-09-03] MEDS: CYCLOBENZAPRINE HCL 10 MG TABLET (FP) PO SCH ×3 (05:59→21:42)
[2017-09-03] MEDS: PRENATAL VITAMINS W/ FOLIC ACID TABLET (FP) PO SCH (09:40)
[2017-09-03] MEDS: cloNIDine HCL 0.1 MG TABLET PO SCH ×2 (09:40→21:42)
[2017-09-03] MEDS: BUPRENORPHINE/NALOXONE 2 MG/0.5 MG FILM PACKET SL SCH (09:40)
[2017-09-03] MEDS: NAPROXEN 500 MG TABLET (FP) PO SCH ×2 (09:40→21:44)
[2017-09-03] MEDS: NICOTINE 21 MG/24 HOURS TOPICAL PATCH TD SCH (09:41)
[2017-09-03] MEDS: THIAMINE HCL 100 MG TABLET (FP) PO SCH (21:42)
[2017-09-03] MEDS: diphenhydrAMINE HCL 50 MG CAPSULE PO PRN (21:43)
[2017-09-04] MEDS: CYCLOBENZAPRINE HCL 10 MG TABLET (FP) PO SCH ×3 (06:01→21:22)
[2017-09-04] MEDS: cloNIDine HCL 0.1 MG TABLET PO SCH ×2 (09:43→21:23)
[2017-09-04] MEDS: NICOTINE 21 MG/24 HOURS TOPICAL PATCH TD SCH (09:43)
[2017-09-04] MEDS: PRENATAL VITAMINS W/ FOLIC ACID TABLET (FP) PO SCH (09:43)
[2017-09-04] MEDS: NAPROXEN 500 MG TABLET (FP) PO SCH ×2 (09:43→21:22)
[2017-09-04] MEDS: BUPRENORPHINE/NALOXONE 2 MG/0.5 MG FILM PACKET SL SCH (09:44)
[2017-09-04] MEDS: THIAMINE HCL 100 MG TABLET (FP) PO SCH (21:22)
[2017-09-04] MEDS: diphenhydrAMINE HCL 50 MG CAPSULE PO PRN (21:24)
[2017-09-05] MEDS: CYCLOBENZAPRINE HCL 10 MG TABLET (FP) PO SCH ×3 (06:00→22:04)
[2017-09-05] MEDS: NAPROXEN 500 MG TABLET (FP) PO SCH ×2 (09:35→22:04)
[2017-09-05] MEDS: cloNIDine HCL 0.1 MG TABLET PO SCH ×2 (09:35→22:04)
[2017-09-05] MEDS: PRENATAL VITAMINS W/ FOLIC ACID TABLET (FP) PO SCH (09:35)
[2017-09-05] MEDS: NICOTINE 21 MG/24 HOURS TOPICAL PATCH TD SCH (09:36)
[2017-09-05] MEDS: diphenhydrAMINE HCL 50 MG CAPSULE PO PRN (22:04)
[2017-09-05] MEDS: THIAMINE HCL 100 MG TABLET (FP) PO SCH (22:04)
[2017-09-06] MEDS: CYCLOBENZAPRINE HCL 10 MG TABLET (FP) PO SCH ×3 (06:17→21:06)
[2017-09-06] MEDS: NAPROXEN 500 MG TABLET (FP) PO SCH ×2 (09:38→21:08)
[2017-09-06] MEDS: PRENATAL VITAMINS W/ FOLIC ACID TABLET (FP) PO SCH (09:38)
[2017-09-06] MEDS: NICOTINE 21 MG/24 HOURS TOPICAL PATCH TD SCH (09:39)
[2017-09-06] MEDS: cloNIDine HCL 0.1 MG TABLET PO SCH ×2 (09:39→21:06)
[2017-09-06] MEDS: THIAMINE HCL 100 MG TABLET (FP) PO SCH (21:06)
[2017-09-06] MEDS: diphenhydrAMINE HCL 50 MG CAPSULE PO PRN (21:07)
[2017-09-07] MEDS: CYCLOBENZAPRINE HCL 10 MG TABLET (FP) PO SCH ×3 (06:30→21:14)
[2017-09-07] MEDS: PRENATAL VITAMINS W/ FOLIC ACID TABLET (FP) PO SCH (09:48)
[2017-09-07] MEDS: cloNIDine HCL 0.1 MG TABLET PO SCH ×2 (09:48→21:14)
[2017-09-07] MEDS: NAPROXEN 500 MG TABLET (FP) PO SCH ×2 (09:49→21:14)
[2017-09-07] MEDS: NICOTINE 21 MG/24 HOURS TOPICAL PATCH TD SCH (09:49)
[2017-09-07] MEDS: THIAMINE HCL 100 MG TABLET (FP) PO SCH (21:14)
[2017-09-07] MEDS: diphenhydrAMINE HCL 50 MG CAPSULE PO PRN (21:15)
[2017-09-08] MEDS: CYCLOBENZAPRINE HCL 10 MG TABLET (FP) PO SCH ×3 (06:00→21:09)
[2017-09-08] MEDS: PRENATAL VITAMINS W/ FOLIC ACID TABLET (FP) PO SCH (09:34)
[2017-09-08] MEDS: NICOTINE 21 MG/24 HOURS TOPICAL PATCH TD SCH (09:34)
[2017-09-08] MEDS: NAPROXEN 500 MG TABLET (FP) PO SCH ×2 (09:34→21:09)
[2017-09-08] MEDS: cloNIDine HCL 0.1 MG TABLET PO SCH ×2 (09:34→21:09)
[2017-09-08] MEDS: diphenhydrAMINE HCL 50 MG CAPSULE PO PRN (21:09)
[2017-09-08] MEDS: THIAMINE HCL 100 MG TABLET (FP) PO SCH (21:09)
[2017-09-09] MEDS: CYCLOBENZAPRINE HCL 10 MG TABLET (FP) PO SCH ×3 (06:40→21:38)
[2017-09-09] MEDS: NAPROXEN 500 MG TABLET (FP) PO SCH ×2 (09:26→21:37)
[2017-09-09] MEDS: NICOTINE 21 MG/24 HOURS TOPICAL PATCH TD SCH (09:26)
[2017-09-09] MEDS: cloNIDine HCL 0.1 MG TABLET PO SCH ×2 (09:26→21:38)
[2017-09-09] MEDS: PRENATAL VITAMINS W/ FOLIC ACID TABLET (FP) PO SCH (09:26)
[2017-09-09] MEDS: diphenhydrAMINE HCL 50 MG CAPSULE PO PRN (21:38)
[2017-09-09] MEDS: THIAMINE HCL 100 MG TABLET (FP) PO SCH (21:38)
[2017-09-10] MEDS: CYCLOBENZAPRINE HCL 10 MG TABLET (FP) PO SCH ×3 (06:00→21:16)
[2017-09-10] MEDS: NAPROXEN 500 MG TABLET (FP) PO SCH ×2 (09:33→21:16)
[2017-09-10] MEDS: cloNIDine HCL 0.1 MG TABLET PO SCH ×2 (09:33→21:16)
[2017-09-10] MEDS: PRENATAL VITAMINS W/ FOLIC ACID TABLET (FP) PO SCH (09:34)
[2017-09-10] MEDS: NICOTINE 21 MG/24 HOURS TOPICAL PATCH TD SCH (09:34)
[2017-09-10] MEDS: diphenhydrAMINE HCL 50 MG CAPSULE PO PRN (21:15)
[2017-09-10] MEDS: THIAMINE HCL 100 MG TABLET (FP) PO SCH (21:16)
[2017-09-11] MEDS: CYCLOBENZAPRINE HCL 10 MG TABLET (FP) PO SCH ×3 (06:12→21:11)
[2017-09-11] MEDS: NAPROXEN 500 MG TABLET (FP) PO SCH ×2 (09:44→21:11)
[2017-09-11] MEDS: PRENATAL VITAMINS W/ FOLIC ACID TABLET (FP) PO SCH (09:44)
[2017-09-11] MEDS: NICOTINE 21 MG/24 HOURS TOPICAL PATCH TD SCH (09:45)
[2017-09-11] MEDS: cloNIDine HCL 0.1 MG TABLET PO SCH ×2 (09:45→21:11)
--- NOTE | 2017-09-11 14:22 | PN ---
Psychiatric Progress Note Vital Signs: Vital Signs Period Temp Pulse Resp BP Sys/Batista Pulse Ox Last 24 Hr 98.2 F-98.3 F 80-97 16-18 130-143/78-96 Date of Session: 09/11/17 Chief Complaint:: Medication management HPI: Patient addressing Opoid Dependence comorbid with Nicotine Dependence, Substance-induced mood Disorder and Substance-induced Sleep Disorder ROS: Asthma Current Medications: Active Medications Generic Name Dose Route Start Last Admin Trade Name Freq PRN Reason Stop Dose Admin Acetaminophen 650 mg 08/28/17 14:28 08/29/17 13:51 Tylenol - PO 650 mg Q4H PRN Administration PAIN Al Hydroxide/Mg Hydroxide 30 ml 08/28/17 14:28 Mylanta Oral Suspension - PO Q6H PRN DYSPEPSIA Albuterol Sulfate 2 puff 08/28/17 14:31 Ventolin Hfa Inhaler - IH Q4H PRN ASTHMA Albuterol/Ipratropium 1 amp 08/30/17 12:00 Duoneb - NEB PRN SARA Clonidine 0.1 mg 08/29/17 14:15 09/11/17 09:45 Catapres - PO Not Given BID SARA Cyclobenzaprine HCl 10 mg 08/29/17 14:00 09/11/17 06:12 Flexeril - PO Not Given TID SARA Diphenhydramine HCl 100 mg 08/29/17 10:56 09/10/17 21:15 Benadryl - PO 100 mg HS PRN Administration INSOMNIA Eucalyptus/Menthol/Phenol/Sorbitol 1 each 08/28/17 14:28 Cepastat Lozenge - MM Q4H PRN SORE THROAT Guaifenesin 10 ml 08/28/17 14:28 Robitussin Dm - PO Q6H PRN COUGH Hydroxyzine Pamoate 50 mg 08/28/17 14:28 08/29/17 19:06 Vistaril - PO 50 mg Q4H PRN Administration AGITATION Loperamide HCl 4 mg 08/28/17 14:28 Imodium - PO Q6H PRN DIARRHEA Magnesium Citrate 300 ml 08/28/17 14:28 Citroma - PO Q48H PRN CONSTIPATION Magnesium Hydroxide 30 ml 08/28/17 14:28 Milk Of Magnesia - PO DAILY PRN CONSTIPATION Naproxen 500 mg 08/29/17 14:15 09/11/17 09:44 Naprosyn - PO 500 mg BID SARA Administration Nicotine 21 mg 08/29/17 10:00 09/11/17 09:45 Nicoderm Patch - TD Not Given DAILY SARA Nicotine Polacrilex 4 mg 08/28/17 14:28 Nicorette Gum - BUC Q2H PRN NICOTINE REPLACEMENT RX Ondansetron HCl 8 mg 08/29/17 13:44 Zofran Odt - SL Q8H PRN NAUSEA AND/OR VOMITING Multivit/Folic Acid/Iron 1 tab 08/29/17 10:00 09/11/17 09:44 Vitamins (Sjr) - PO 1 tab DAILY SARA Administration Pseudoephedrine/Triprolidine 1 combo 08/28/17 14:28 Actifed - PO TID PRN NASAL CONGESTION Thiamine HCl 100 mg 08/28/17 22:00 09/10/17 21:16 Vitamin B1 - PO 100 mg HS SARA Administration Medication(s) Change(s): Start Naltrexone 50 mg po daily Current Side Effect: No Lab tests ordered: Yes Lab tests reviewed: Yes Provider note:: Patient requested medication to help with craving from heroin. Naltrexone in both formulations was discussed with patient. He is not willing to take monthly injection but will take it orally. Benefits vs Risks discussed with patient and he was provided with reading materials. LFT's result reviewed and is normal. Total face to face time:: 25 Mental Status Exam - Mental Status Exam Alert and Oriented to: Time, Place, Person Cognitive Function: Fair Patient Appearance: Well Groomed Mood: Hopeful, Euthymic Affect: Appropriate Patient Behavior: Cooperative Speech Pattern: Clear Voice Loudness: Normal Thought Process: Intact, Goal Oriented Thought Disorder: Not Present Hallucinations: Denies Suicidal Ideation: Denies Homicidal Ideation: Denies Insight/Judgement: Fair Sleep: Fair Appetite: Good Muscle strength/Tone: Normal Gait/Station: Normal Psychiatric Treatment Plan - Problem List (1) Opioid dependence Current Visit: No (2) Asthma Current Visit: Yes Qualifiers: Asthma severity: mild (3) Nicotine dependence Current Visit: Yes Qualifiers: Nicotine product type: cigarettes Substance use status: uncomplicated Qualified Code(s): F17.210 - Nicotine dependence, cigarettes, uncomplicated (4) Substance-induced anxiety disorder Current Visit: Yes (5) Substance-induced sleep disorder Current Visit: Yes Initial treatment plan: 1) Start Naltrexone 50 mg po daily. 2) Monitor progress
[2017-09-11] MEDS: THIAMINE HCL 100 MG TABLET (FP) PO SCH (21:11)
[2017-09-12] MEDS: CYCLOBENZAPRINE HCL 10 MG TABLET (FP) PO SCH ×3 (06:09→21:19)
[2017-09-12] MEDS: PRENATAL VITAMINS W/ FOLIC ACID TABLET (FP) PO SCH (09:31)
[2017-09-12] MEDS: cloNIDine HCL 0.1 MG TABLET PO SCH ×2 (09:31→21:19)
[2017-09-12] MEDS: NICOTINE 21 MG/24 HOURS TOPICAL PATCH TD SCH (09:31)
[2017-09-12] MEDS: NALTREXONE HCL 50 MG TABLET PO SCH (09:31)
[2017-09-12] MEDS: NAPROXEN 500 MG TABLET (FP) PO SCH ×2 (09:31→21:19)
[2017-09-12] MEDS: THIAMINE HCL 100 MG TABLET (FP) PO SCH (21:19)
[2017-09-12] MEDS: diphenhydrAMINE HCL 50 MG CAPSULE PO PRN (21:20)
[2017-09-13] MEDS: CYCLOBENZAPRINE HCL 10 MG TABLET (FP) PO SCH (06:04)
[2017-09-13] MEDS: PRENATAL VITAMINS W/ FOLIC ACID TABLET (FP) PO SCH (09:38)
[2017-09-13] MEDS: NALTREXONE HCL 50 MG TABLET PO SCH (09:38)
[2017-09-13] MEDS: NAPROXEN 500 MG TABLET (FP) PO SCH ×2 (09:39→21:15)
[2017-09-13] MEDS: cloNIDine HCL 0.1 MG TABLET PO SCH ×2 (09:39→21:15)
[2017-09-13] MEDS: NICOTINE 21 MG/24 HOURS TOPICAL PATCH TD SCH (10:14)
[2017-09-13] MEDS ORDERED: CYCLOBENZAPRINE HCL 10 MG TABLET (FP) PO SCH (11:00)
[2017-09-13] MEDS: THIAMINE HCL 100 MG TABLET (FP) PO SCH (21:15)
[2017-09-13] MEDS: diphenhydrAMINE HCL 50 MG CAPSULE PO PRN (21:16)
[2017-09-14] MEDS: NAPROXEN 500 MG TABLET (FP) PO SCH ×2 (09:30→21:15)
[2017-09-14] MEDS: NALTREXONE HCL 50 MG TABLET PO SCH (09:30)
[2017-09-14] MEDS: NICOTINE 21 MG/24 HOURS TOPICAL PATCH TD SCH (09:30)
[2017-09-14] MEDS: PRENATAL VITAMINS W/ FOLIC ACID TABLET (FP) PO SCH (09:30)
[2017-09-14] MEDS: cloNIDine HCL 0.1 MG TABLET PO SCH ×2 (09:30→21:15)
[2017-09-14] MEDS: THIAMINE HCL 100 MG TABLET (FP) PO SCH (21:14)
[2017-09-14] MEDS: diphenhydrAMINE HCL 50 MG CAPSULE PO PRN (21:15)
[2017-09-15] MEDS: cloNIDine HCL 0.1 MG TABLET PO SCH ×2 (09:37→21:14)
[2017-09-15] MEDS: PRENATAL VITAMINS W/ FOLIC ACID TABLET (FP) PO SCH (09:37)
[2017-09-15] MEDS: NALTREXONE HCL 50 MG TABLET PO SCH (09:37)
[2017-09-15] MEDS: NAPROXEN 500 MG TABLET (FP) PO SCH ×2 (09:37→21:14)
[2017-09-15] MEDS: NICOTINE 21 MG/24 HOURS TOPICAL PATCH TD SCH (09:38)
[2017-09-15] MEDS: THIAMINE HCL 100 MG TABLET (FP) PO SCH (21:14)
[2017-09-15] MEDS: diphenhydrAMINE HCL 50 MG CAPSULE PO PRN (21:15)
[2017-09-16] MEDS: PRENATAL VITAMINS W/ FOLIC ACID TABLET (FP) PO SCH (09:30)
[2017-09-16] MEDS: cloNIDine HCL 0.1 MG TABLET PO SCH ×2 (09:30→21:08)
[2017-09-16] MEDS: NAPROXEN 500 MG TABLET (FP) PO SCH ×2 (09:30→21:08)
[2017-09-16] MEDS: NALTREXONE HCL 50 MG TABLET PO SCH (09:30)
[2017-09-16] MEDS: NICOTINE 21 MG/24 HOURS TOPICAL PATCH TD SCH (09:31)
[2017-09-16] MEDS: THIAMINE HCL 100 MG TABLET (FP) PO SCH (21:08)
[2017-09-16] MEDS: diphenhydrAMINE HCL 50 MG CAPSULE PO PRN (21:09)
[2017-09-17] MEDS: ACETAMINOPHEN 325 MG TABLET (FP) PO PRN (06:02)
[2017-09-17] MEDS ORDERED: LIDOCAINE VISCOUS 2% ORAL/TOP 20 ML UNIT-DOSE CUP MM PRN (07:50)
[2017-09-17] MEDS: NICOTINE 21 MG/24 HOURS TOPICAL PATCH TD SCH (09:48)
[2017-09-17] MEDS: NAPROXEN 500 MG TABLET (FP) PO SCH ×2 (09:48→21:02)
[2017-09-17] MEDS: PRENATAL VITAMINS W/ FOLIC ACID TABLET (FP) PO SCH (09:48)
[2017-09-17] MEDS: NALTREXONE HCL 50 MG TABLET PO SCH (09:48)
[2017-09-17] MEDS: cloNIDine HCL 0.1 MG TABLET PO SCH ×2 (09:48→21:02)
[2017-09-17] MEDS: THIAMINE HCL 100 MG TABLET (FP) PO SCH (21:02)
[2017-09-17] MEDS: diphenhydrAMINE HCL 50 MG CAPSULE PO PRN (21:03)
[2017-09-18] MEDS: ACETAMINOPHEN 325 MG TABLET (FP) PO PRN (01:17)
[2017-09-18] MEDS: NALTREXONE HCL 50 MG TABLET PO SCH (09:38)
[2017-09-18] MEDS: PRENATAL VITAMINS W/ FOLIC ACID TABLET (FP) PO SCH (09:38)
[2017-09-18] MEDS: NAPROXEN 500 MG TABLET (FP) PO SCH ×2 (09:38→21:44)
[2017-09-18] MEDS: cloNIDine HCL 0.1 MG TABLET PO SCH ×2 (09:38→21:44)
[2017-09-18] MEDS: NICOTINE 21 MG/24 HOURS TOPICAL PATCH TD SCH (09:39)
--- NOTE | 2017-09-18 16:19 | PN ---
Psychiatric Progress Note Vital Signs: Vital Signs Period Temp Pulse Resp BP Sys/Batista Pulse Ox Last 24 Hr 97.5 F-98.5 F 68-90 16-18 144-148/85-87 Date of Session: 09/18/17 Chief Complaint:: Discharge visit HPI: Case of a 42 y/o male admitted to [address] for rehabilitation treatment for opioid dependence,nicotine dependence co-morbid with substance-induced anxiety / sleep disorder.Benign hospital course.Discharge scheduled for 09/19/17. ROS: No abnormal findings.Patient is cognitively intact.Ambulatory.Sociable.No somatic complaints. Current Medications: Active Medications Generic Name Dose Route Start Last Admin Trade Name Freq PRN Reason Stop Dose Admin Acetaminophen 650 mg 08/28/17 14:28 09/18/17 01:17 Tylenol - PO 650 mg Q4H PRN Administration PAIN Al Hydroxide/Mg Hydroxide 30 ml 08/28/17 14:28 Mylanta Oral Suspension - PO Q6H PRN DYSPEPSIA Albuterol Sulfate 2 puff 08/28/17 14:31 Ventolin Hfa Inhaler - IH Q4H PRN ASTHMA Albuterol/Ipratropium 1 amp 08/30/17 12:00 Duoneb - NEB PRN SARA Clonidine 0.1 mg 08/29/17 14:15 09/18/17 09:38 Catapres - PO 0.1 mg BID SARA Administration Cyclobenzaprine HCl 10 mg 09/13/17 11:00 Flexeril - PO PRN SARA Diphenhydramine HCl 100 mg 08/29/17 10:56 09/17/17 21:03 Benadryl - PO 100 mg HS PRN Administration INSOMNIA Guaifenesin 10 ml 08/28/17 14:28 Robitussin Dm - PO Q6H PRN COUGH Hydroxyzine Pamoate 50 mg 08/28/17 14:28 08/29/17 19:06 Vistaril - PO 50 mg Q4H PRN Administration AGITATION Lidocaine HCl 20 ml 09/17/17 07:50 Xylocaine 2% Viscous Oral - MM TID PRN ORAL PAIN/MOUTH SORES Loperamide HCl 4 mg 08/28/17 14:28 Imodium - PO Q6H PRN DIARRHEA Magnesium Citrate 300 ml 08/28/17 14:28 Citroma - PO Q48H PRN CONSTIPATION Magnesium Hydroxide 30 ml 08/28/17 14:28 Milk Of Magnesia - PO DAILY PRN CONSTIPATION Naltrexone HCl 50 mg 09/12/17 10:00 09/18/17 09:38 Revia - PO 50 mg DAILY SARA Administration Naproxen 500 mg 08/29/17 14:15 09/18/17 09:38 Naprosyn - PO 500 mg BID SARA Administration Nicotine 21 mg 08/29/17 10:00 09/18/17 09:39 Nicoderm Patch - TD Not Given DAILY SARA Nicotine Polacrilex 4 mg 08/28/17 14:28 Nicorette Gum - BUC Q2H PRN NICOTINE REPLACEMENT RX Ondansetron HCl 8 mg 08/29/17 13:44 Zofran Odt - SL Q8H PRN NAUSEA AND/OR VOMITING Multivit/Folic Acid/Iron 1 tab 08/29/17 10:00 09/18/17 09:38 Vitamins (Sjr) - PO 1 tab DAILY SARA Administration Pseudoephedrine/Triprolidine 1 combo 08/28/17 14:28 Actifed - PO TID PRN NASAL CONGESTION Thiamine HCl 100 mg 08/28/17 22:00 09/17/17 21:02 Vitamin B1 - PO 100 mg HS SARA Administration Medication(s) Change(s): No medications as per discharge plan. Current Side Effect: No Lab tests ordered: No Lab tests reviewed: Yes Provider note:: Patient will complete this program tomorrow.He has addressed his identified issues and met treatment goals.Mr Rogers will continue treatment in an outpatient setting at the [facility] in [facility] ([facility]No medical issues.Patient reports adequate sleep,euthymic mood and motivation to maintain sobriety.He indicates that,at [facility],he learned the importance of spiritual assets and collective support in the quest for sobriety.Admits to being more aware of the negative consequences of addictions and the benefits of abstinence for maintenance of wellness.Course of hospitalization : benign.Mental status is stable.Patient is at his baseline.Safe and ready for discharge,as pre-planned,on 09/19/17. Total face to face time:: 35 Mental Status Exam - Mental Status Exam Alert and Oriented to: Time, Place, Person Cognitive Function: Good Patient Appearance: Well Groomed Mood: Hopeful, Euthymic Affect: Normal Range Patient Behavior: Cooperative Speech Pattern: Clear, Appropriate Voice Loudness: Normal Thought Process: Intact, Goal Oriented Thought Disorder: Not Present Hallucinations: Denies Suicidal Ideation: Denies Homicidal Ideation: Denies Insight/Judgement: Fair Sleep: Well Appetite: Good Muscle strength/Tone: Normal Gait/Station: Normal Psychiatric Treatment Plan - Problem List (1) Opioid dependence Current Visit: No (2) Substance-induced anxiety disorder Current Visit: Yes (3) Substance-induced sleep disorder Current Visit: Yes (4) Nicotine dependence Current Visit: Yes Qualifiers: Nicotine product type: cigarettes Substance use status: uncomplicated Qualified Code(s): F17.210 - Nicotine dependence, cigarettes, uncomplicated (5) Asthma Current Visit: Yes Qualifiers: Asthma severity: mild
[2017-09-18] MEDS: THIAMINE HCL 100 MG TABLET (FP) PO SCH (21:44)
[2017-09-18] MEDS: diphenhydrAMINE HCL 50 MG CAPSULE PO PRN (21:45)
[2017-09-19 06:29] VITALS: BP 142/91; PULSE 67; TEMP 98.3
[2017-09-19] MEDS: PRENATAL VITAMINS W/ FOLIC ACID TABLET (FP) PO SCH (10:05)
[2017-09-19] MEDS: NALTREXONE HCL 50 MG TABLET PO SCH (10:05)
[2017-09-19] MEDS: NICOTINE 21 MG/24 HOURS TOPICAL PATCH TD SCH (10:06)
[2017-09-19] MEDS: NAPROXEN 500 MG TABLET (FP) PO SCH (10:06)
[2017-09-19] MEDS: cloNIDine HCL 0.1 MG TABLET PO SCH (10:06)
== END 2017-09-19 10:25 | disposition home or self-care (01) | DRG 772 ==
LOC: YASAS 09:38 → Y3W 14:44
PROVIDERS: ADMIT Psychiatry & Neurology Psychiatry; ATTEND Psychiatry & Neurology Psychiatry
PROC: HZ42ZZZ Group Counseling for Substance Abuse Treatment, Cognitive-Behavioral (ICD-10-PCS; principal; 2017-08-28)
DX: F11.20 Opioid dependence, uncomplicated (principal); F17.210 Nicotine dependence, cigarettes, uncomplicated; F19.24 Other psychoactive substance dependence with psychoactive substance-induced mood disorder; F19.282 Other psychoactive substance dependence with psychoactive substance-induced sleep disorder; J45.20 Mild intermittent asthma, uncomplicated
CPT/HCPCS: 81003; 81015; 93005; 93010

== ENCOUNTER 2017-10-30 15:40 | Inpatient (IN) | payer OTHER ==
[2017-10-30 17:23] VITALS: BMI 23.5
--- NOTE | 2017-10-30 20:33 | HP ---
COWS - Scale Resting Pulse: 1= [place] 81-100 Sweatin=Flushed/Facial Moisture Restless Observation: 1= Difficult to Sit Still Pupil Size: 1= Pupils >than Normal Bone or Joint Aches: 1= Mild Discomfort Runny Nose/ Eye Tearin= Runny Nose/Eyes GI Upset > 30mins: 1= Stomach Cramp Tremor Observation: 1= Tremor [place], Not Seen Yawning Observation: 1= 1-2x During Session Anxiety or Irritability: 2=Irritable/Anxious Goose Flesh Skin: 3=Piloerection COWS Score: 16 Admission ROS S - HPI Chief Complaint: WITHDRAWAL SYMPTOMS Allergies/Adverse Reactions: Allergies Allergy/AdvReac Type Severity Reaction Status Date / Time shellfish derived Allergy Severe Swelling Verified 08/28/17 14:13 No Known Drug Allergies Allergy Verified 08/28/17 14:13 History of Present Illness: 42 Y.O. MAN WITH AN EXTENSIVE HISTORY OF OPIOID DEPENDENCE IS HERE SEEKING DETOX. HE HAS HAD MULTIPLE ADMISSION HERE FOR DETOX WITH THE LAST BEING IN August,. REPORTS HIS LONGEST PERIOD CLEAN HAS BEEN 1 YEAR. - Ebola screening Have you traveled outside of the country in the last 21 days: No (N) Have you had contact with anyone from an Ebola affected area: No Have you been sick,other than usual withdrawal symptoms: No Do you have a fever: No - Review of Systems Constitutional: Chills, Loss of Appetite, Night Sweats, Changes in sleep, Unintentional Wgt. Loss EENT: reports: Tearing, Nose Congestion Respiratory: reports: No Symptoms reported Cardiac: reports: No Symptoms Reported GI: reports: No Symptoms Reported : reports: No Symptoms Reported Musculoskeletal: reports: No Symptoms Reported Integumentary: reports: No Symptoms Reported Neuro: reports: No Symptoms reported Endocrine: reports: No Symptoms Reported Hematology: reports: No Symptoms Reported Psychiatric: reports: Judgement Intact, Mood/Affect Appropiate, Orientated x3 Other Systems: Reviewed and Negative Patient History - Patient Medical History Hx Anemia: No Hx Asthma: Yes Hx Chronic Obstructive Pulmonary Disease (COPD): No Hx Cancer: No Hx Cardiac Disorders: No Hx Congestive Heart Failure: No Hx Hypertension: No Hx Hypercholesterolemia: No Hx Pacemaker: No HX Cerebrovascular Accident: No Hx Seizures: No Hx Dementia: No Hx Diabetes: No Hx Gastrointestinal Disorders: No Hx Liver Disease: No Hx Genitourinary Disorders: No Hx Sexually Transmitted Disorders: No Hx Renal Disease (ESRD): No Hx Thyroid Disease: No Hx Human Immunodeficiency Virus (HIV): No Hx Hepatitis C: No Hx Depression: No Hx Suicide Attempt: No Hx Bipolar Disorder: No Hx Schizophrenia: No - Patient Surgical History Past Surgical History: No Hx Neurologic Surgery: No Hx Cataract Extraction: No Hx Cardiac Surgery: No Hx Lung Surgery: No Hx Breast Surgery: No Hx Breast Biopsy: No Hx Abdominal Surgery: No Hx Appendectomy: No Hx Cholecystectomy: No Hx Genitourinary Surgery: No Hx Section: No Hx Orthopedic Surgery: No Anesthesia Reaction: Yes - PPD History Previous Implant?: Yes Documented Results: Negative w/proof Date: 04/10/17 Results: 0 mm PPD to be Administered?: No - Reproductive History Patient is a Female of Child Bearing Age (11 -55 yrs old): No - Smoking Cessation Smoking history: Current every day smoker Have you smoked in the past 12 months: Yes Aproximately how many cigarettes per day: 10 Cigars Per Day: 0 Hx Chewing Tobacco Use: No Initiated information on smoking cessation: Yes 'Breaking Loose' booklet given: 10/30/17 - Substance & Tx. History Hx Alcohol Use: No Hx Substance Use: Yes Substance Use Type: Heroin Hx Substance Use Treatment: Yes (DETOX: 07/2017; REHAB: 08/2017) - Substances Abused Heroin Route: Inhalation Frequency: Daily Amount used: 4 BAGS Age of first use: 36 Date of Last Use: 10/30/17 Family Disease History - Family Disease History Family Disease History: Diabetes: Father (HTN,DE), Heart Disease: Father, Respiratory: Mother Admission Physical Exam [facility] - Vital Signs Vital Signs: Vital Signs - 24 hr 10/30/17 17:21 Temperature 98.2 F Pulse Rate 84 Respiratory 18 Rate Blood Pressure 134/87 - Physical General Appearance: Yes: Disheveled, Anxious HEENTM: Yes: Hearing grossly Normal, Normocephalic, Normal Voice Respiratory: Yes: Chest Non-Tender, Lungs Clear, Normal Breath Sounds, No Respiratory Distress, No Accessory Muscle Use Neck: Yes: No masses,lesions,Nodules, Trachea in good position Breast: Yes: Breast Exam Deferred Cardiology: Yes: Regular Rhythm, Regular Rate Abdominal: Yes: Normal Bowel Sounds, Non Tender, Flat Genitourinary: Yes: Other (NO COMPLAINTS REPORTED) Back: Yes: Normal Inspection Musculoskeletal: Yes: full range of Motion, Gait Steady, Pelvis Stable Extremities: Yes: Normal Capillary Refill, Normal Inspection, Normal Range of Motion, Non-Tender Neurological: Yes: board handler II-XII NML intact, Fully Oriented, Alert, Motor Strength 5/5, Normal Mood/Affect, Normal Response Integumentary: Yes: Normal Color, Dry, Warm Lymphatic: Yes: Within Normal Limits - Diagnostic (1) Asthma Current Visit: Yes Status: Chronic Qualifiers: Asthma severity: mild (2) Nicotine dependence Current Visit: Yes Status: Chronic Qualifiers: Nicotine product type: cigarettes Substance use status: uncomplicated Qualified Code(s): F17.210 - Nicotine dependence, cigarettes, uncomplicated (3) Opioid dependence with withdrawal Current Visit: Yes Status: Chronic (4) Weight decreased Current Visit: No Status: Acute Cleared for Admission [facility] - Detox or Rehab [facility] Level of Care: Medically Managed Detox Regimen/Protocol: Methadone [facility] Breath Alcohol Content Breath Alcohol Content: 0 Urine Drug Screen - Results Drug Screen Negative: No Urine Drug Screen Results: RUBEN-Cocaine, OPI-Opiates
[2017-10-30] MEDS ORDERED: MAG HYDROX/AL HYDROX/SIMETH 30 ML UNIT-DOSE CUP PO PRN (20:48)
[2017-10-30] MEDS ORDERED: ACETAMINOPHEN 325 MG TABLET (FP) PO PRN (20:48)
[2017-10-30] MEDS ORDERED: P-EPHED 60MG/TRIPROLIDI 2.5MG TABLET PO PRN (20:48)
[2017-10-30] MEDS ORDERED: IBUPROFEN 400 MG TABLET (FP) PO PRN (20:48)
[2017-10-30] MEDS ORDERED: guaiFENesin/D-METHORPHAN HB 10 ML UNIT-DOSE CUPS PO PRN (20:48)
[2017-10-30] MEDS ORDERED: MAGNESIUM HYDROX 2400MG/30ML ORAL SUSPENSION 30 ML CUP PO PRN (20:48)
[2017-10-30] MEDS ORDERED: MENTHOL/PHENOL 1 EACH UD MM PRN (20:48)
[2017-10-30] MEDS ORDERED: MAGNESIUM CITRATE 300 ML BOTTLE PO PRN (20:48)
[2017-10-30] MEDS ORDERED: LOPERAMIDE HCL 2 MG CAPSULE PO PRN (20:48)
[2017-10-30] MEDS ORDERED: METHADONE HCL 10 MG TABLET (FOR DETOX USE ONLY) PO ONE ×2 (20:48→23:00)
[2017-10-30] MEDS ORDERED: ALBUTEROL SO4 18 GM HFA INHALER IH PRN (20:49)
[2017-10-30] MEDS: THIAMINE HCL 100 MG TABLET (FP) PO SCH (22:00)
[2017-10-30] MEDS: diazePAM 5 MG TABLET PO PRN (22:01)
[2017-10-31 05:03] LABS: URINE APPEARANCE CLEAR; URINE BILIRUBIN NEGATIVE (NEGATIVE); URINE BLOOD 1+ (NEGATIVE); URINE COLOR LTYELLOW; URINE GLUCOSE (UA) NEGATIVE (NEGATIVE); URINE KETONE NEGATIVE (NEGATIVE); URINE LEUK ESTERASE NEGATIVE (NEGATIVE); URINE NITRITE NEGATIVE (NEGATIVE); URINE PROTEIN NEGATIVE (NEGATIVE); URINE UROBILINOGEN NEGATIVE mg/dL (0.2-1.0)
[2017-10-31 05:31] LABS: URINE MUCUS RARE
[2017-10-31] MEDS ORDERED: METHADONE HCL 10 MG TABLET (FOR DETOX USE ONLY) PO ONE (10:00)
[2017-10-31] MEDS: PRENATAL VITAMINS W/ FOLIC ACID TABLET (FP) PO SCH (10:07)
[2017-10-31] MEDS: diazePAM 5 MG TABLET PO PRN ×2 (10:10→20:11)
[2017-10-31 10:16] LABS: ALBUMIN 3.2 g/dl (3.4-5.0); ANION GAP 7 (8-16); BLOOD UREA NITROGEN 22 mg/dL (7-18); CALCIUM 8.2 mg/dL (8.5-10.1); CHLORIDE 105 mmol/L (98-107); CO2 25 mmol/L (21-32); GLUCOSE,RANDOM 77 mg/dL (74-106); POTASSIUM 4.3 mmol/L (3.5-5.1); SGOT/AST 14 U/L (15-37); SGPT/ALT 20 U/L (12-78); SODIUM 137 mmol/L (136-145)
[2017-10-31 10:18] LABS: ALK PHOS 92 U/L (45-117); BILIRUBIN,TOTAL 0.4 mg/dL (0.2-1.0); CREATININE 0.8 mg/dL (0.7-1.3); TOT PROT 6.1 g/dl (6.4-8.2)
[2017-10-31 10:23] LABS: HEMATOCRIT 41.7 % (35.4-49); HEMOGLOBIN 13.5 GM/dL (11.7-16.9); MCH 29.5 pg (25.7-33.7); MCHC 32.3 g/dl (32.0-35.9); MEAN CELL VOLUME 91.3 fl (80-96); MEAN PLT VOLUME 7.9 fl (7.5-11.1); PLATELET COUNT 259 K/MM3 (134-434); RBC 4.57 M/mm3 (4.00-5.60); RDW 14.5 % (11.9-15.9); WHITE BLOOD COUNT 7.2 K/mm3 (4.0-10.0)
--- NOTE | 2017-10-31 11:02 | PN ---
[facility] COWS - Scale Resting Pulse: 0= [place] 80 or Below Sweatin= Chills/Flushing Restless Observation: 3= Extraneous Movement Pupil Size: 2= Moderately Dilated Bone or Joint Aches: 4=Acute Joint/Muscle Pain Runny Nose/ Eye Tearin= Runny Nose/Eyes GI Upset > 30mins: 1= Stomach Cramp Tremor Observation of Outstretched Hands: 1= Tremor [place], Not Seen Yawning Observation: 1= 1-2x During Session Anxiety or Irritability: 2=Irritable/Anxious Goose Flesh Skin: 0=Smooth Skin COWS Score: 17 S Progress Note (SOAP) Subjective: ANXIETY,SWEATS/CHILLS,FATIGUE. Objective: 10/31/17 11:02 Vital Signs Temperature 96.6 F L 10/31/17 09:59 Pulse Rate 80 10/31/17 09:59 Respiratory Rate 18 10/31/17 09:59 Blood Pressure 147/88 10/31/17 09:59 O2 Sat by Pulse Oximetry (%) Laboratory Last Values WBC 7.2 K/mm3 (4.0-10.0) D 10/31/17 08:00 RBC 4.57 M/mm3 (4.00-5.60) 10/31/17 08:00 Hgb 13.5 GM/dL (11.7-16.9) 10/31/17 08:00 Hct 41.7 % (35.4-49) 10/31/17 08:00 MCV 91.3 fl (80-96) 10/31/17 08:00 MCH 29.5 pg (25.7-33.7) 10/31/17 08:00 MCHC 32.3 g/dl (32.0-35.9) 10/31/17 08:00 RDW 14.5 % (11.9-15.9) 10/31/17 08:00 Plt Count 259 K/MM3 (134-434) 10/31/17 08:00 MPV 7.9 fl (7.5-11.1) 10/31/17 08:00 Sodium 137 mmol/L (136-145) 10/31/17 08:00 Potassium 4.3 mmol/L (3.5-5.1) 10/31/17 08:00 Chloride 105 mmol/L (98-107) 10/31/17 08:00 Carbon Dioxide 25 mmol/L (21-32) 10/31/17 08:00 Anion Gap 7 (8-16) L 10/31/17 08:00 BUN 22 mg/dL (7-18) H 10/31/17 08:00 Creatinine 0.8 mg/dL (0.7-1.3) 10/31/17 08:00 Creat Clearance w eGFR > 60 (>60) 10/31/17 08:00 Random Glucose 77 mg/dL (74-106) 10/31/17 08:00 Calcium 8.2 mg/dL (8.5-10.1) L 10/31/17 08:00 Total Bilirubin 0.4 mg/dL (0.2-1.0) D 10/31/17 08:00 AST 14 U/L (15-37) L 10/31/17 08:00 ALT 20 U/L (12-78) 10/31/17 08:00 Alkaline Phosphatase 92 U/L (45-117) 10/31/17 08:00 Total Protein 6.1 g/dl (6.4-8.2) L 10/31/17 08:00 Albumin 3.2 g/dl (3.4-5.0) L 10/31/17 08:00 Urine Color Ltyellow 10/30/17 06:30 Urine Appearance Clear 10/30/17 06:30 Urine pH 5.0 (5.0-8.0) D 10/30/17 06:30 Ur Specific [place] 1.020 (1.001-1.035) 10/30/17 06:30 Urine Protein Negative (NEGATIVE) 10/30/17 06:30 Urine Glucose (UA) Negative (NEGATIVE) 10/30/17 06:30 Urine Ketones Negative (NEGATIVE) 10/30/17 06:30 Urine Blood 1+ (NEGATIVE) H 10/30/17 06:30 Urine Nitrite Negative (NEGATIVE) 10/30/17 06:30 Urine Bilirubin Negative (NEGATIVE) 10/30/17 06:30 Urine Urobilinogen Negative mg/dL (0.2-1.0) 10/30/17 06:30 Ur Leukocyte Esterase Negative (NEGATIVE) 10/30/17 06:30 Urine WBC (Auto) 1 /hpf (3-5) 10/30/17 06:30 Urine RBC (Auto) 2 /hpf (0-3) 10/30/17 06:30 Urine Mucus Rare 10/30/17 06:30 Assessment: 10/31/17 11:02 WITHDRAWAL SX Plan: CONTINUE DETOX
--- NOTE | 2017-10-31 15:19 | EKG ---
Test Reason : Blood Pressure : / mmHG Vent. Rate : 070 BPM Atrial Rate : 070 BPM P-R Int : 136 ms QRS Dur : 084 ms QT Int : 384 ms P-R-T Axes : 069 083 064 degrees QTc Int : 414 ms NORMAL SINUS RHYTHM NONSPECIFIC ST ABNORMALITY ABNORMAL ECG WHEN COMPARED WITH ECG OF 29-AUG-2017 10:47, NO SIGNIFICANT CHANGE WAS FOUND Confirmed by Alfredito Murcia MD ([id number]) on 10/31/2017 3:18:36 PM Referred By: Confirmed By:Alfredito Murcia MD
[2017-10-31] MEDS: THIAMINE HCL 100 MG TABLET (FP) PO SCH (22:36)
[2017-11-01] MEDS: hydrOXYzine PAMOATE 50 MG CAPSULE (FP) PO PRN (03:26)
[2017-11-01] MEDS: diazePAM 5 MG TABLET PO PRN ×4 (03:26→22:12)
[2017-11-01] MEDS ORDERED: METHADONE HCL 5 MG TABLET (FOR DETOX USE ONLY) PO ONE (10:00)
[2017-11-01] MEDS: PRENATAL VITAMINS W/ FOLIC ACID TABLET (FP) PO SCH (10:38)
--- NOTE | 2017-11-01 13:20 | PN ---
S COWS - Scale Resting Pulse: 0= IN 80 or Below Sweatin= Chills/Flushing Restless Observation: 3= Extraneous Movement Pupil Size: 0= Normal to Room Light Bone or Joint Aches: 4=Acute Joint/Muscle Pain Runny Nose/ Eye Tearin= None GI Upset > 30mins: 0= None Tremor Observation of Outstretched Hands: 2= Slight Tremor Visible Yawning Observation: 1= 1-2x During Session Anxiety or Irritability: 2=Irritable/Anxious Goose Flesh Skin: 0=Smooth Skin COWS Score: 13 BHS Progress Note (SOAP) Subjective: ANXIETY,SWEATS,TREMORS,CHILLS,TREMORS,INTERMITTENT SLEEP. Objective: 11/01/17 13:19 Vital Signs Temperature 96.5 F L 11/01/17 13:04 Pulse Rate 71 11/01/17 13:04 Respiratory Rate 18 11/01/17 13:04 Blood Pressure 129/83 11/01/17 13:04 O2 Sat by Pulse Oximetry (%) Laboratory Last Values WBC 7.2 K/mm3 (4.0-10.0) D 10/31/17 08:00 RBC 4.57 M/mm3 (4.00-5.60) 10/31/17 08:00 Hgb 13.5 GM/dL (11.7-16.9) 10/31/17 08:00 Hct 41.7 % (35.4-49) 10/31/17 08:00 MCV 91.3 fl (80-96) 10/31/17 08:00 MCH 29.5 pg (25.7-33.7) 10/31/17 08:00 MCHC 32.3 g/dl (32.0-35.9) 10/31/17 08:00 RDW 14.5 % (11.9-15.9) 10/31/17 08:00 Plt Count 259 K/MM3 (134-434) 10/31/17 08:00 MPV 7.9 fl (7.5-11.1) 10/31/17 08:00 Sodium 137 mmol/L (136-145) 10/31/17 08:00 Potassium 4.3 mmol/L (3.5-5.1) 10/31/17 08:00 Chloride 105 mmol/L (98-107) 10/31/17 08:00 Carbon Dioxide 25 mmol/L (21-32) 10/31/17 08:00 Anion Gap 7 (8-16) L 10/31/17 08:00 BUN 22 mg/dL (7-18) H 10/31/17 08:00 Creatinine 0.8 mg/dL (0.7-1.3) 10/31/17 08:00 Creat Clearance w eGFR > 60 (>60) 10/31/17 08:00 Random Glucose 77 mg/dL (74-106) 10/31/17 08:00 Calcium 8.2 mg/dL (8.5-10.1) L 10/31/17 08:00 Total Bilirubin 0.4 mg/dL (0.2-1.0) D 10/31/17 08:00 AST 14 U/L (15-37) L 10/31/17 08:00 ALT 20 U/L (12-78) 10/31/17 08:00 Alkaline Phosphatase 92 U/L (45-117) 10/31/17 08:00 Total Protein 6.1 g/dl (6.4-8.2) L 10/31/17 08:00 Albumin 3.2 g/dl (3.4-5.0) L 10/31/17 08:00 Urine Color Ltyellow 10/30/17 06:30 Urine Appearance Clear 10/30/17 06:30 Urine pH 5.0 (5.0-8.0) D 10/30/17 06:30 Ur Specific [place] 1.020 (1.001-1.035) 10/30/17 06:30 Urine Protein Negative (NEGATIVE) 10/30/17 06:30 Urine Glucose (UA) Negative (NEGATIVE) 10/30/17 06:30 Urine Ketones Negative (NEGATIVE) 10/30/17 06:30 Urine Blood 1+ (NEGATIVE) H 10/30/17 06:30 Urine Nitrite Negative (NEGATIVE) 10/30/17 06:30 Urine Bilirubin Negative (NEGATIVE) 10/30/17 06:30 Urine Urobilinogen Negative mg/dL (0.2-1.0) 10/30/17 06:30 Ur Leukocyte Esterase Negative (NEGATIVE) 10/30/17 06:30 Urine WBC (Auto) 1 /hpf (3-5) 01/08/18 06:30 Urine RBC (Auto) 2 /hpf (0-3) 10/30/17 06:30 Urine Mucus Rare 10/30/17 06:30 RPR Titer Nonreactive (NONREACTIVE) 10/31/17 08:00 Assessment: 11/01/17 13:19 WITHDRAWAL SX Laboratory Last Values WBC 7.2 K/mm3 (4.0-10.0) D 10/31/17 08:00 RBC 4.57 M/mm3 (4.00-5.60) 10/31/17 08:00 Hgb 13.5 GM/dL (11.7-16.9) 10/31/17 08:00 Hct 41.7 % (35.4-49) 10/31/17 08:00 MCV 91.3 fl (80-96) 10/31/17 08:00 MCH 29.5 pg (25.7-33.7) 10/31/17 08:00 MCHC 32.3 g/dl (32.0-35.9) 10/31/17 08:00 RDW 14.5 % (11.9-15.9) 10/31/17 08:00 Plt Count 259 K/MM3 (134-434) 10/31/17 08:00 MPV 7.9 fl (7.5-11.1) 10/31/17 08:00 Sodium 137 mmol/L (136-145) 10/31/17 08:00 Potassium 4.3 mmol/L (3.5-5.1) 10/31/17 08:00 Chloride 105 mmol/L (98-107) 10/31/17 08:00 Carbon Dioxide 25 mmol/L (21-32) 10/31/17 08:00 Anion Gap 7 (8-16) L 10/31/17 08:00 BUN 22 mg/dL (7-18) H 10/31/17 08:00 Creatinine 0.8 mg/dL (0.7-1.3) 10/31/17 08:00 Creat Clearance w eGFR > 60 (>60) 10/31/17 08:00 Random Glucose 77 mg/dL (74-106) 10/31/17 08:00 Calcium 8.2 mg/dL (8.5-10.1) L 10/31/17 08:00 Total Bilirubin 0.4 mg/dL (0.2-1.0) D 10/31/17 08:00 AST 14 U/L (15-37) L 10/31/17 08:00 ALT 20 U/L (12-78) 10/31/17 08:00 Alkaline Phosphatase 92 U/L (45-117) 10/31/17 08:00 Total Protein 6.1 g/dl (6.4-8.2) L 10/31/17 08:00 Albumin 3.2 g/dl (3.4-5.0) L 10/31/17 08:00 Urine Color Ltyellow 10/30/17 06:30 Urine Appearance Clear 10/30/17 06:30 Urine pH 5.0 (5.0-8.0) D 10/30/17 06:30 Ur Specific [place] 1.020 (1.001-1.035) 10/30/17 06:30 Urine Protein Negative (NEGATIVE) 10/30/17 06:30 Urine Glucose (UA) Negative (NEGATIVE) 10/30/17 06:30 Urine Ketones Negative (NEGATIVE) 10/30/17 06:30 Urine Blood 1+ (NEGATIVE) H 10/30/17 06:30 Urine Nitrite Negative (NEGATIVE) 10/30/17 06:30 Urine Bilirubin Negative (NEGATIVE) 10/30/17 06:30 Urine Urobilinogen Negative mg/dL (0.2-1.0) 10/30/17 06:30 Ur Leukocyte Esterase Negative (NEGATIVE) 10/30/17 06:30 Urine WBC (Auto) 1 /hpf (3-5) 10/30/17 06:30 Urine RBC (Auto) 2 /hpf (0-3) 10/30/17 06:30 Urine Mucus Rare 10/30/17 06:30 RPR Titer Nonreactive (NONREACTIVE) 10/31/17 08:00 Plan: CONTINUE DETOX
[2017-11-01] MEDS: THIAMINE HCL 100 MG TABLET (FP) PO SCH (22:10)
[2017-11-02] MEDS: diazePAM 5 MG TABLET PO PRN ×3 (02:21→17:28)
[2017-11-02] MEDS: hydrOXYzine PAMOATE 50 MG CAPSULE (FP) PO PRN ×2 (05:29→22:11)
[2017-11-02] MEDS ORDERED: METHADONE HCL 5 MG TABLET (FOR DETOX USE ONLY) PO ONE (10:00)
[2017-11-02] MEDS: PRENATAL VITAMINS W/ FOLIC ACID TABLET (FP) PO SCH (10:42)
--- NOTE | 2017-11-02 11:51 | PN ---
[facility] Progress Note (SOAP) Subjective: ANXIETY,SWEATS,FATIGUE. Objective: 11/02/17 11:51 Vital Signs Temperature 97.2 F L 11/02/17 09:33 Pulse Rate 84 11/02/17 09:33 Respiratory Rate 18 11/02/17 09:33 Blood Pressure 136/77 11/02/17 09:33 O2 Sat by Pulse Oximetry (%) Laboratory Last Values WBC 7.2 K/mm3 (4.0-10.0) D 10/31/17 08:00 RBC 4.57 M/mm3 (4.00-5.60) 10/31/17 08:00 Hgb 13.5 GM/dL (11.7-16.9) 10/31/17 08:00 Hct 41.7 % (35.4-49) 10/31/17 08:00 MCV 91.3 fl (80-96) 10/31/17 08:00 MCH 29.5 pg (25.7-33.7) 10/31/17 08:00 MCHC 32.3 g/dl (32.0-35.9) 10/31/17 08:00 RDW 14.5 % (11.9-15.9) 10/31/17 08:00 Plt Count 259 K/MM3 (134-434) 10/31/17 08:00 MPV 7.9 fl (7.5-11.1) 10/31/17 08:00 Sodium 137 mmol/L (136-145) 10/31/17 08:00 Potassium 4.3 mmol/L (3.5-5.1) 10/31/17 08:00 Chloride 105 mmol/L (98-107) 10/31/17 08:00 Carbon Dioxide 25 mmol/L (21-32) 10/31/17 08:00 Anion Gap 7 (8-16) L 10/31/17 08:00 BUN 22 mg/dL (7-18) H 10/31/17 08:00 Creatinine 0.8 mg/dL (0.7-1.3) 10/31/17 08:00 Creat Clearance w eGFR > 60 (>60) 10/31/17 08:00 Random Glucose 77 mg/dL (74-106) 10/31/17 08:00 Calcium 8.2 mg/dL (8.5-10.1) L 10/31/17 08:00 Total Bilirubin 0.4 mg/dL (0.2-1.0) D 10/31/17 08:00 AST 14 U/L (15-37) L 10/31/17 08:00 ALT 20 U/L (12-78) 10/31/17 08:00 Alkaline Phosphatase 92 U/L (45-117) 10/31/17 08:00 Total Protein 6.1 g/dl (6.4-8.2) L 10/31/17 08:00 Albumin 3.2 g/dl (3.4-5.0) L 10/31/17 08:00 Urine Color Ltyellow 10/30/17 06:30 Urine Appearance Clear 10/30/17 06:30 Urine pH 5.0 (5.0-8.0) D 10/30/17 06:30 Ur Specific [place] 1.020 (1.001-1.035) 10/30/17 06:30 Urine Protein Negative (NEGATIVE) 10/30/17 06:30 Urine Glucose (UA) Negative (NEGATIVE) 10/30/17 06:30 Urine Ketones Negative (NEGATIVE) 10/30/17 06:30 Urine Blood 1+ (NEGATIVE) H 10/30/17 06:30 Urine Nitrite Negative (NEGATIVE) 10/30/17 06:30 Urine Bilirubin Negative (NEGATIVE) 10/30/17 06:30 Urine Urobilinogen Negative mg/dL (0.2-1.0) 10/30/17 06:30 Ur Leukocyte Esterase Negative (NEGATIVE) 10/30/17 06:30 Urine WBC (Auto) 1 /hpf (3-5) 10/30/17 06:30 Urine RBC (Auto) 2 /hpf (0-3) 10/30/17 06:30 Urine Mucus Rare 10/30/17 06:30 RPR Titer Nonreactive (NONREACTIVE) 10/31/17 08:00 Assessment: 11/02/17 11:51 WITHDRAWAL SX Plan: CONTINUE DETOX
[2017-11-02] MEDS: THIAMINE HCL 100 MG TABLET (FP) PO SCH (22:10)
[2017-11-03] MEDS ORDERED: METHADONE HCL 10 MG TABLET (FOR DETOX USE ONLY) PO ONE (10:00)
[2017-11-03] MEDS: PRENATAL VITAMINS W/ FOLIC ACID TABLET (FP) PO SCH (10:19)
[2017-11-03] MEDS: hydrOXYzine PAMOATE 50 MG CAPSULE (FP) PO PRN ×2 (10:21→22:08)
--- NOTE | 2017-11-03 11:36 | PN ---
[facility] Progress Note (SOAP) Subjective: ANXIETY,SWEATS,FATIGUE. Objective: 11/03/17 11:35 Vital Signs Temperature 97.0 F L 11/03/17 10:07 Pulse Rate 86 11/03/17 10:07 Respiratory Rate 16 11/03/17 10:07 Blood Pressure 115/83 11/03/17 10:07 O2 Sat by Pulse Oximetry (%) Laboratory Last Values WBC 7.2 K/mm3 (4.0-10.0) D 10/31/17 08:00 RBC 4.57 M/mm3 (4.00-5.60) 10/31/17 08:00 Hgb 13.5 GM/dL (11.7-16.9) 10/31/17 08:00 Hct 41.7 % (35.4-49) 10/31/17 08:00 MCV 91.3 fl (80-96) 10/31/17 08:00 MCH 29.5 pg (25.7-33.7) 10/31/17 08:00 MCHC 32.3 g/dl (32.0-35.9) 10/31/17 08:00 RDW 14.5 % (11.9-15.9) 10/31/17 08:00 Plt Count 259 K/MM3 (134-434) 10/31/17 08:00 MPV 7.9 fl (7.5-11.1) 10/31/17 08:00 Sodium 137 mmol/L (136-145) 10/31/17 08:00 Potassium 4.3 mmol/L (3.5-5.1) 10/31/17 08:00 Chloride 105 mmol/L (98-107) 10/31/17 08:00 Carbon Dioxide 25 mmol/L (21-32) 10/31/17 08:00 Anion Gap 7 (8-16) L 10/31/17 08:00 BUN 22 mg/dL (7-18) H 10/31/17 08:00 Creatinine 0.8 mg/dL (0.7-1.3) 10/31/17 08:00 Creat Clearance w eGFR > 60 (>60) 10/31/17 08:00 Random Glucose 77 mg/dL (74-106) 10/31/17 08:00 Calcium 8.2 mg/dL (8.5-10.1) L 10/31/17 08:00 Total Bilirubin 0.4 mg/dL (0.2-1.0) D 10/31/17 08:00 AST 14 U/L (15-37) L 10/31/17 08:00 ALT 20 U/L (12-78) 10/31/17 08:00 Alkaline Phosphatase 92 U/L (45-117) 10/31/17 08:00 Total Protein 6.1 g/dl (6.4-8.2) L 10/31/17 08:00 Albumin 3.2 g/dl (3.4-5.0) L 10/31/17 08:00 Urine Color Ltyellow 10/30/17 06:30 Urine Appearance Clear 10/30/17 06:30 Urine pH 5.0 (5.0-8.0) D 10/30/17 06:30 Ur Specific [place] 1.020 (1.001-1.035) 10/30/17 06:30 Urine Protein Negative (NEGATIVE) 10/30/17 06:30 Urine Glucose (UA) Negative (NEGATIVE) 10/30/17 06:30 Urine Ketones Negative (NEGATIVE) 10/30/17 06:30 Urine Blood 1+ (NEGATIVE) H 10/30/17 06:30 Urine Nitrite Negative (NEGATIVE) 10/30/17 06:30 Urine Bilirubin Negative (NEGATIVE) 10/30/17 06:30 Urine Urobilinogen Negative mg/dL (0.2-1.0) 10/30/17 06:30 Ur Leukocyte Esterase Negative (NEGATIVE) 10/30/17 06:30 Urine WBC (Auto) 1 /hpf (3-5) 10/30/17 06:30 Urine RBC (Auto) 2 /hpf (0-3) 10/30/17 06:30 Urine Mucus Rare 10/30/17 06:30 RPR Titer Nonreactive (NONREACTIVE) 10/31/17 08:00 Assessment: 11/03/17 11:35 WITHDRAWAL SX Plan: CONTINUE DETOX
[2017-11-03] MEDS: THIAMINE HCL 100 MG TABLET (FP) PO SCH (22:08)
[2017-11-04] MEDS ORDERED: METHADONE HCL 5 MG TABLET (FOR DETOX USE ONLY) PO ONE (06:00)
[2017-11-04 09:15] VITALS: BP 122/80; PULSE 94; TEMP 96.9
--- NOTE | 2017-11-04 11:35 | DS ---
[facility] Detox Discharge Summary Admission Date: 10/30/17 Discharge Date: 11/04/17 - History Present History: Alcohol Dependence, Cannabis Dependence, Opioid Dependence Pertinent Past History: Asthma and weight loss - Physical Exam Results Vital Signs: Vital Signs Temperature 96.9 F L 11/04/17 09:14 Pulse Rate 94 H 11/04/17 09:14 Respiratory Rate 20 11/04/17 09:14 Blood Pressure 122/80 11/04/17 09:14 O2 Sat by Pulse Oximetry (%) Pertinent Admission Physical Exam Findings: Withdrawal sx Laboratory Last Values WBC 7.2 K/mm3 (4.0-10.0) D 10/31/17 08:00 RBC 4.57 M/mm3 (4.00-5.60) 10/31/17 08:00 Hgb 13.5 GM/dL (11.7-16.9) 10/31/17 08:00 Hct 41.7 % (35.4-49) 10/31/17 08:00 MCV 91.3 fl (80-96) 10/31/17 08:00 MCH 29.5 pg (25.7-33.7) 10/31/17 08:00 MCHC 32.3 g/dl (32.0-35.9) 10/31/17 08:00 RDW 14.5 % (11.9-15.9) 10/31/17 08:00 Plt Count 259 K/MM3 (134-434) 10/31/17 08:00 MPV 7.9 fl (7.5-11.1) 10/31/17 08:00 Sodium 137 mmol/L (136-145) 10/31/17 08:00 Potassium 4.3 mmol/L (3.5-5.1) 10/31/17 08:00 Chloride 105 mmol/L (98-107) 10/31/17 08:00 Carbon Dioxide 25 mmol/L (21-32) 10/31/17 08:00 Anion Gap 7 (8-16) L 10/31/17 08:00 BUN 22 mg/dL (7-18) H 10/31/17 08:00 Creatinine 0.8 mg/dL (0.7-1.3) 10/31/17 08:00 Creat Clearance w eGFR > 60 (>60) 10/31/17 08:00 Random Glucose 77 mg/dL (74-106) 10/31/17 08:00 Calcium 8.2 mg/dL (8.5-10.1) L 10/31/17 08:00 Total Bilirubin 0.4 mg/dL (0.2-1.0) D 10/31/17 08:00 AST 14 U/L (15-37) L 10/31/17 08:00 ALT 20 U/L (12-78) 10/31/17 08:00 Alkaline Phosphatase 92 U/L (45-117) 10/31/17 08:00 Total Protein 6.1 g/dl (6.4-8.2) L 10/31/17 08:00 Albumin 3.2 g/dl (3.4-5.0) L 10/31/17 08:00 Urine Color Ltyellow 10/30/17 06:30 Urine Appearance Clear 10/30/17 06:30 Urine pH 5.0 (5.0-8.0) D 10/30/17 06:30 Ur Specific [place] 1.020 (1.001-1.035) 10/30/17 06:30 Urine Protein Negative (NEGATIVE) 10/30/17 06:30 Urine Glucose (UA) Negative (NEGATIVE) 10/30/17 06:30 Urine Ketones Negative (NEGATIVE) 10/30/17 06:30 Urine Blood 1+ (NEGATIVE) H 10/30/17 06:30 Urine Nitrite Negative (NEGATIVE) 10/30/17 06:30 Urine Bilirubin Negative (NEGATIVE) 10/30/17 06:30 Urine Urobilinogen Negative mg/dL (0.2-1.0) 10/30/17 06:30 Ur Leukocyte Esterase Negative (NEGATIVE) 10/30/17 06:30 Urine WBC (Auto) 1 /hpf (3-5) 10/30/17 06:30 Urine RBC (Auto) 2 /hpf (0-3) 10/30/17 06:30 Urine Mucus Rare 10/30/17 06:30 RPR Titer Nonreactive (NONREACTIVE) 10/31/17 08:00 Labs noted - Treatment Hospital Course: Detox Protocol Followed, Detoxed Safely, Responded well, Discharged Condition Good - Medication Discharge Medications: Ambulatory Orders Albuterol Sulfate Inhaler - [Ventolin HFA Inhaler -] 2 inh PO Q4H PRN #1 inhaler 09/18/17 - Diagnosis (1) Cannabis dependence, uncomplicated Status: Acute (2) Nicotine dependence Status: Acute Qualifiers: Nicotine product type: cigarettes Substance use status: uncomplicated Qualified Code(s): F17.210 - Nicotine dependence, cigarettes, uncomplicated (3) Opioid dependence with withdrawal Status: Acute (4) Substance-induced anxiety disorder Status: Acute (5) Asthma Status: Chronic Qualifiers: Asthma severity: mild - AMA Did Patient Leave Against Medical Advice: No
--- NOTE | 2017-11-04 12:07 | PN ---
[facility] Progress Note Note: Patient brought in by security, used bathroom and emerged disoriented and lethargic - 156/132 P115 - narcan 1ml given sc - patient responded, BP came down to 142/87, pulse 98 - became alert. He admitted to buying and snorting heroin. Patient was just discharged from [facility] earlier this morning where he had completed detox from alcohol and opiates and had refused any aftercare. Per Dr Burk, will be admitted to a rehab bed with possible suboxone induction tomorrow.
== END 2017-11-04 09:59 | disposition other institution (70) | DRG 773 ==
LOC: YASAS 15:40 → Y3N 21:28 → UNDODISIN 11-04 09:40
PROVIDERS: ADMIT Internal Medicine; ATTEND Internal Medicine
PROC: HZ2ZZZZ Detoxification Services for Substance Abuse Treatment (ICD-10-PCS; principal; 2017-10-30)
DX: F11.23 Opioid dependence with withdrawal (principal); F12.20 Cannabis dependence, uncomplicated; F17.210 Nicotine dependence, cigarettes, uncomplicated; F19.280 Other psychoactive substance dependence with psychoactive substance-induced anxiety disorder; J45.909 Unspecified asthma, uncomplicated; R63.4 Abnormal weight loss; Z68.23 Body mass index [BMI] 23.0-23.9, adult
CPT/HCPCS: 36415; 80053; 81003; 81015; 85027; 86593; 93005; 93010

== ENCOUNTER 2017-11-04 15:01 | Inpatient (IN) | payer OTHER ==
[2017-11-04] MEDS ORDERED: P-EPHED 60MG/TRIPROLIDI 2.5MG TABLET PO PRN (18:57)
[2017-11-04] MEDS ORDERED: MAGNESIUM CITRATE 300 ML BOTTLE PO PRN (18:57)
[2017-11-04] MEDS ORDERED: IBUPROFEN 400 MG TABLET (FP) PO PRN (18:57)
[2017-11-04] MEDS ORDERED: MENTHOL/PHENOL 1 EACH UD MM PRN (18:57)
[2017-11-04] MEDS ORDERED: LOPERAMIDE HCL 2 MG CAPSULE PO PRN (18:57)
[2017-11-04] MEDS ORDERED: ACETAMINOPHEN 325 MG TABLET (FP) PO PRN (18:57)
[2017-11-04] MEDS ORDERED: guaiFENesin/D-METHORPHAN HB 10 ML UNIT-DOSE CUPS PO PRN (18:57)
[2017-11-04] MEDS ORDERED: MAGNESIUM HYDROX 2400MG/30ML ORAL SUSPENSION 30 ML CUP PO PRN (18:57)
[2017-11-04] MEDS ORDERED: MAG HYDROX/AL HYDROX/SIMETH 30 ML UNIT-DOSE CUP PO PRN (18:57)
--- NOTE | 2017-11-04 19:02 | PN ---
[facility] Progress Note Note: this 42 years old male with heroin dependence,admitted detox at [facility] from to 11/04/17 had alter mental status receiving narcan 0.4 mg by [employer] melvin quarles alert,vital sign stable urine for drug scren shoed positive for opiate ,bzo and mtd admitted using 2 bags of heroin after discharge for the unit recommendation by Dr Burk to admit patient to rehab for monitoring and further level of care patient did not want to be on suboxone admit to rehab s w [id number]
[2017-11-04 19:07] VITALS: BMI 26.8
--- NOTE | 2017-11-04 19:20 | HP ---
[facility] Rehab Assess/Revision - Admission History Admitted to Rehab from: [facility] [place] Date of Admission to Rehab: 11/04/17 - Vital signs Vital Signs: Vital Signs Period Temp Pulse Resp BP Sys/Batista Pulse Ox Last 24 Hr 97 F 73 20 122/83 - Findings Detox History & Physical reviewed: Yes Concur with findings: Yes Comments/Additional Findings: for rehab as protocol Inpatient Rehab Admission - Initial Determination Are CD services needed?: Yes Free of communicable disease: Yes Not in need of hospitalization: Yes - Rehab Admission Criteria Previous failed treatment: Yes Poor recovery environment: Yes Patient is meeting Inpatient Rehab admission criteria:: Yes
[2017-11-04] MEDS: THIAMINE HCL 100 MG TABLET (FP) PO SCH (21:35)
[2017-11-04] MEDS: hydrOXYzine PAMOATE 25 MG CAPSULE (FP) PO PRN (21:35)
[2017-11-04] MEDS ORDERED: NICOTINE POLACRILEX 2 MG GUM BUC PRN (21:38)
[2017-11-05] MEDS: PRENATAL VITAMINS W/ FOLIC ACID TABLET (FP) PO SCH (09:51)
[2017-11-05] MEDS ORDERED: BUPRENORPHINE/NALOXONE 2 MG/0.5 MG FILM PACKET SL SCH (10:00)
[2017-11-05] MEDS: THIAMINE HCL 100 MG TABLET (FP) PO SCH (21:03)
[2017-11-05] MEDS: hydrOXYzine PAMOATE 25 MG CAPSULE (FP) PO PRN (21:03)
[2017-11-06 06:57] VITALS: BP 137/90; PULSE 71; TEMP 99
[2017-11-06] MEDS: PRENATAL VITAMINS W/ FOLIC ACID TABLET (FP) PO SCH (09:14)
--- NOTE | 2017-11-06 09:47 | PN ---
[facility] Progress Note Note: PATIENT DID NOT WANT TO COMPLETE TREATMENT,SIGNED RELEASE AMA,PSYCHI[employer]RI[employer] SPECIALIST NOTIFIED BY NURSE
== END 2017-11-06 09:42 | disposition left against medical advice (07) | DRG 770 ==
LOC: YASAS 15:01 → Y3W 19:05
PROVIDERS: ADMIT Psychiatry & Neurology Psychiatry; ATTEND Psychiatry & Neurology Psychiatry
PROC: HZ42ZZZ Group Counseling for Substance Abuse Treatment, Cognitive-Behavioral (ICD-10-PCS; principal; 2017-11-04)
DX: F11.20 Opioid dependence, uncomplicated (principal); F17.210 Nicotine dependence, cigarettes, uncomplicated; J45.909 Unspecified asthma, uncomplicated; Z87.898 Personal history of other specified conditions; Z91.013 Allergy to seafood

== ENCOUNTER 2017-12-06 11:43 | Inpatient (IN) | payer OTHER ==
[2017-12-06 13:19] VITALS: BMI 24.2
--- NOTE | 2017-12-06 17:09 | HP ---
COWS - Scale Resting Pulse: 0= [place] 80 or Below Sweatin=Flushed/Facial Moisture Restless Observation: 1= Difficult to Sit Still Pupil Size: 0= Normal to Room Light Bone or Joint Aches: 2= Severe Diffuse Aches Runny Nose/ Eye Tearin= Runny Nose/Eyes GI Upset > 30mins: 2= Nausea/Diarrhea Tremor Observation: 2= Slight Tremor Visible Yawning Observation: 2= >3x During Session Anxiety or Irritability: 2=Irritable/Anxious Goose Flesh Skin: 3=Piloerection COWS Score: 18 Admission ROS S - HPI Chief Complaint: I need to get cleaned and off these drugs. Allergies/Adverse Reactions: Allergies Allergy/AdvReac Type Severity Reaction Status Date / Time shellfish derived Allergy Severe Swelling Verified 12/06/17 16:34 No Known Drug Allergies Allergy Verified 12/06/17 16:34 History of Present Illness: pt is a 42yr old male with a history of heroin dependence seeking detox for treatment. Exam Limitations: No Limitations - Ebola screening Have you traveled outside of the country in the last 21 days: No Have you had contact with anyone from an Ebola affected area: No Have you been sick,other than usual withdrawal symptoms: No Do you have a fever: No - Review of Systems Constitutional: Chills, Diaphoresis, Loss of Appetite, Night Sweats, Unintentional Wgt. Loss EENT: reports: Tearing, Nose Congestion Respiratory: reports: No Symptoms reported Cardiac: reports: No Symptoms Reported GI: reports: Poor Appetite, Poor Fluid Intake : reports: No Symptoms Reported Musculoskeletal: reports: No Symptoms Reported Integumentary: reports: Flushing, Sweating Neuro: reports: Tingling, Tremors Endocrine: reports: Excessive Sweating, Flushing, Intolerance to Cold, Intolerance to Heat Hematology: reports: No Symptoms Reported Psychiatric: reports: No Sypmtoms Reported, Judgement Intact, Mood/Affect Appropiate Other Systems: Reviewed and Negative Patient History - Patient Medical History Hx Anemia: No Hx Asthma: Yes Hx Chronic Obstructive Pulmonary Disease (COPD): No Hx Cancer: No Hx Cardiac Disorders: No Hx Congestive Heart Failure: No Hx Hypertension: No Hx Hypercholesterolemia: No Hx Pacemaker: No HX Cerebrovascular Accident: No Hx Seizures: No Hx Dementia: No Hx Diabetes: No Hx Gastrointestinal Disorders: No Hx Liver Disease: No Hx Genitourinary Disorders: No Hx Sexually Transmitted Disorders: No Hx Renal Disease (ESRD): No Hx Thyroid Disease: No Hx Human Immunodeficiency Virus (HIV): No (negative) Hx Hepatitis C: No (negative) Hx Depression: No Hx Suicide Attempt: No (denies) Hx Bipolar Disorder: No Hx Schizophrenia: No - Patient Surgical History Past Surgical History: No Hx Neurologic Surgery: No Hx Cataract Extraction: No Hx Cardiac Surgery: No Hx Lung Surgery: No Hx Breast Surgery: No Hx Breast Biopsy: No Hx Abdominal Surgery: No Hx Appendectomy: No Hx Cholecystectomy: No Hx Genitourinary Surgery: No Hx Section: No Hx Orthopedic Surgery: No Anesthesia Reaction: Yes - PPD History Previous Implant?: Yes Documented Results: Negative w/proof Implanted On Prior [facility] Admission?: Yes Date: 04/10/17 Results: 0 mm PPD to be Administered?: No - Reproductive History Patient is a Female of Child Bearing Age (11 -55 yrs old): No - Smoking Cessation Smoking history: Current every day smoker Have you smoked in the past 12 months: Yes Aproximately how many cigarettes per day: 4 Cigars Per Day: 0 Hx Chewing Tobacco Use: No Initiated information on smoking cessation: Yes 'Breaking Loose' booklet given: 12/06/17 - Substance & Tx. History Hx Alcohol Use: No Hx Substance Use: Yes Substance Use Type: Heroin Hx Substance Use Treatment: Yes (last detox 2016) - Substances Abused Heroin Route: Inhalation Frequency: Daily Amount used: 10 bags Age of first use: 37 Date of Last Use: 12/05/17 Family Disease History - Family Disease History Family Disease History: Diabetes: Father (HTN,AL), Heart Disease: Father, Respiratory: Mother Admission Physical Exam [facility] - Vital Signs Vital Signs: Vital Signs - 24 hr 12/06/17 12:10 Pulse Rate 73 Respiratory 20 Rate Blood Pressure 116/66 - Physical General Appearance: Yes: Appropriately Dressed, Moderate Distress, Irritable, Sweating, Anxious HEENTM: Yes: Normal Voice, Nasal Congestion, Rhinorrhea Respiratory: Yes: Lungs Clear, Normal Breath Sounds, No Respiratory Distress Neck: Yes: No masses,lesions,Nodules Breast: Yes: Within Normal Limits Cardiology: Yes: Regular Rhythm, Regular Rate, S1, S2 Abdominal: Yes: Normal Bowel Sounds, Non Tender, Soft Genitourinary: Yes: Within Normal Limits Back: Yes: Normal Inspection Musculoskeletal: Yes: full range of Motion Extremities: Yes: Normal Capillary Refill, Normal Inspection, Non-Tender, Tremors Neurological: Yes: Fully Oriented, Alert, Normal Response Integumentary: Yes: Normal Color, Diaphoresis Lymphatic: Yes: Within Normal Limits - Diagnostic (1) Nicotine dependence Current Visit: Yes Status: Chronic Qualifiers: Nicotine product type: cigarettes Substance use status: uncomplicated Qualified Code(s): F17.210 - Nicotine dependence, cigarettes, uncomplicated (2) Opioid dependence with withdrawal Current Visit: Yes Status: Chronic (3) Asthma Current Visit: Yes Status: Chronic Qualifiers: Asthma severity: mild Asthma complication type: uncomplicated Cleared for Admission S - Detox or Rehab [facility] Level of Care: Medically Managed Detox Regimen/Protocol: Methadone S Breath Alcohol Content Breath Alcohol Content: 0 Urine Drug Screen - Results Drug Screen Negative: No Urine Drug Screen Results: OPI-Opiates, OXY-Oxycodone
[2017-12-06] MEDS ORDERED: IBUPROFEN 400 MG TABLET (FP) PO PRN (17:19)
[2017-12-06] MEDS ORDERED: ACETAMINOPHEN 325 MG TABLET (FP) PO PRN (17:19)
[2017-12-06] MEDS ORDERED: guaiFENesin/D-METHORPHAN HB 10 ML UNIT-DOSE CUPS PO PRN (17:19)
[2017-12-06] MEDS ORDERED: MAGNESIUM CITRATE 300 ML BOTTLE PO PRN (17:19)
[2017-12-06] MEDS ORDERED: MAG HYDROX/AL HYDROX/SIMETH 30 ML UNIT-DOSE CUP PO PRN (17:19)
[2017-12-06] MEDS ORDERED: MAGNESIUM HYDROX 2400MG/30ML ORAL SUSPENSION 30 ML CUP PO PRN (17:19)
[2017-12-06] MEDS ORDERED: P-EPHED 60MG/TRIPROLIDI 2.5MG TABLET PO PRN (17:19)
[2017-12-06] MEDS ORDERED: MENTHOL/PHENOL 1 EACH UD MM PRN (17:19)
[2017-12-06] MEDS ORDERED: LOPERAMIDE HCL 2 MG CAPSULE PO PRN (17:19)
[2017-12-06] MEDS ORDERED: ALBUTEROL SO4 18 GM HFA INHALER IH PRN (17:21)
[2017-12-06] MEDS ORDERED: METHADONE HCL 10 MG TABLET (FOR DETOX USE ONLY) PO ONE ×2 (18:15→23:00)
[2017-12-06] MEDS: diazePAM 5 MG TABLET PO PRN ×2 (18:51→22:33)
[2017-12-06] MEDS: THIAMINE HCL 100 MG TABLET (FP) PO SCH (22:36)
[2017-12-06 23:15] LABS: URINE APPEARANCE TURBID; URINE BILIRUBIN NEGATIVE (NEGATIVE); URINE BLOOD 2+ (NEGATIVE); URINE COLOR YELLOW; URINE GLUCOSE (UA) NEGATIVE (NEGATIVE); URINE KETONE TRACE (NEGATIVE); URINE LEUK ESTERASE NEGATIVE (NEGATIVE); URINE NITRITE NEGATIVE (NEGATIVE); URINE PROTEIN NEGATIVE (NEGATIVE)
[2017-12-06 23:23] LABS: URINE MUCUS RARE
[2017-12-07] MEDS ORDERED: METHADONE HCL 10 MG TABLET (FOR DETOX USE ONLY) PO ONE (10:00)
[2017-12-07] MEDS: diazePAM 5 MG TABLET PO PRN ×4 (10:13→22:17)
[2017-12-07] MEDS: PRENATAL VITAMINS W/ FOLIC ACID TABLET (FP) PO SCH (10:14)
[2017-12-07 10:25] LABS: CALCIUM 8.1 mg/dL (8.5-10.1); CHLORIDE 104 mmol/L (98-107); CREATININE 0.8 mg/dL (0.7-1.3); HEMATOCRIT 43.1 % (35.4-49); HEMOGLOBIN 14.2 GM/dL (11.7-16.9); MCH 29.7 pg (25.7-33.7); MCHC 32.9 g/dl (32.0-35.9); MEAN CELL VOLUME 90.4 fl (80-96); MEAN PLT VOLUME 7.9 fl (7.5-11.1); PLATELET COUNT 226 K/MM3 (134-434); POTASSIUM 4.3 mmol/L (3.5-5.1); RBC 4.77 M/mm3 (4.00-5.60); RDW 13.4 % (11.9-15.9); SGOT/AST 20 U/L (15-37); SGPT/ALT 23 U/L (12-78); SODIUM 138 mmol/L (136-145); WHITE BLOOD COUNT 4.9 K/mm3 (4.0-10.0)
[2017-12-07 10:36] LABS: ALBUMIN 3.6 g/dl (3.4-5.0); ALK PHOS 91 U/L (45-117); ANION GAP 7 (8-16); BILIRUBIN,TOTAL 0.6 mg/dL (0.2-1.0); BLOOD UREA NITROGEN 17 mg/dL (7-18); CO2 27 mmol/L (21-32); GLUCOSE,RANDOM 78 mg/dL (74-106); TOT PROT 6.4 g/dl (6.4-8.2)
--- NOTE | 2017-12-07 10:57 | PN ---
S COWS - Scale Resting Pulse: 0= [place] 80 or Below Sweatin= Chills/Flushing Restless Observation: 0= Sits Still Pupil Size: 0= Normal to Room Light Bone or Joint Aches: 2= Severe Diffuse Aches Runny Nose/ Eye Tearin= None GI Upset > 30mins: 0= None Tremor Observation of Outstretched Hands: 2= Slight Tremor Visible Yawning Observation: 2= >3x During Session Anxiety or Irritability: 2=Irritable/Anxious Goose Flesh Skin: 3=Piloerection COWS Score: 12 [facility] Progress Note (SOAP) Subjective: Interrupted Sleep, Fatigue, Sweating, Tremors. Objective: PT. A & O X 3. NO ACUTE DISTRESS. PT. DENIES CHEST PAIN. 12/07/17 10:53 Vital Signs Temperature 97.5 F L 12/07/17 09:36 Pulse Rate 77 12/07/17 09:36 Respiratory Rate 18 12/07/17 09:36 Blood Pressure 138/94 12/07/17 09:36 O2 Sat by Pulse Oximetry (%) Laboratory Tests 12/06/17 12/07/17 12/07/17 22:10 07:00 07:00 WBC 4.9 D RBC 4.77 Hgb 14.2 Hct 43.1 MCV 90.4 MCH 29.7 MCHC 32.9 RDW 13.4 Plt Count 226 MPV 7.9 Sodium 138 Potassium 4.3 Chloride 104 Carbon Dioxide 27 Anion Gap 7 L BUN 17 D Creatinine 0.8 Creat Clearance w eGFR > 60 Random Glucose 78 Calcium 8.1 L Total Bilirubin 0.6 D AST 20 D ALT 23 Alkaline Phosphatase 91 Total Protein 6.4 Albumin 3.6 Urine Color Yellow Urine Appearance Turbid Urine pH 5.0 Ur Specific [place] 1.032 Urine Protein Negative Urine Glucose (UA) Negative Urine Ketones Trace H Urine Blood 2+ H Urine Nitrite Negative Urine Bilirubin Negative Urine Urobilinogen 2.0 Ur Leukocyte Esterase Negative Urine WBC (Auto) 154 Urine RBC (Auto) None Urine Mucus Rare LABS NOTED. RPR RESULT PENDING. 12/07/17 10:56 Assessment: 12/07/17 10:54 WITHDRAWAL SYMPTOMS. Plan: CONTINUE DETOX. INCREASE DAILY PO FLUID INTAKE. REPEAT UA FOR ADMISSION ABNORMALITIES.
--- NOTE | 2017-12-07 11:53 | EKG ---
Test Reason : Blood Pressure : / mmHG Vent. Rate : 061 BPM Atrial Rate : 061 BPM P-R Int : 134 ms QRS Dur : 084 ms QT Int : 422 ms P-R-T Axes : 045 075 052 degrees QTc Int : 424 ms NORMAL SINUS RHYTHM NORMAL ECG WHEN COMPARED WITH ECG OF 30-OCT-2017 23:10, NO SIGNIFICANT CHANGE WAS FOUND Confirmed by JOSE LEE MD ([id number]) on 12/07/2017 11:52:43 AM Referred By: Confirmed By:JOSE LEE MD
[2017-12-07] MEDS: THIAMINE HCL 100 MG TABLET (FP) PO SCH (22:17)
[2017-12-07] MEDS: hydrOXYzine PAMOATE 50 MG CAPSULE (FP) PO PRN (22:19)
[2017-12-08] MEDS: diazePAM 5 MG TABLET PO PRN ×4 (02:40→22:31)
[2017-12-08] MEDS: PRENATAL VITAMINS W/ FOLIC ACID TABLET (FP) PO SCH (09:49)
[2017-12-08] MEDS ORDERED: METHADONE HCL 5 MG TABLET (FOR DETOX USE ONLY) PO ONE (10:00)
--- NOTE | 2017-12-08 12:03 | PN ---
[facility] COWS - Scale Resting Pulse: 1= [place] 81-100 Sweatin= Chills/Flushing Restless Observation: 1= Difficult to Sit Still Pupil Size: 0= Normal to Room Light Bone or Joint Aches: 2= Severe Diffuse Aches Runny Nose/ Eye Tearin= Nasal Congestion GI Upset > 30mins: 0= None Tremor Observation of Outstretched Hands: 0= None Yawning Observation: 2= >3x During Session Anxiety or Irritability: 2=Irritable/Anxious Goose Flesh Skin: 3=Piloerection COWS Score: 13 [facility] Progress Note (SOAP) Subjective: Interrupted sleep, Sweating, Fatigue, Body Aches. Objective: PT. A & O X 2 (UNCERTAIN ABOUT CURRENT DAY / DATE). PT. OBSERVED AMBULATING ON UNIT. NO ACUTE DISTRESS. 12/08/17 12:01 Vital Signs Temperature 97.1 F L 12/08/17 09:37 Pulse Rate 83 12/08/17 09:37 Respiratory Rate 18 12/08/17 09:37 Blood Pressure 139/94 12/08/17 09:37 O2 Sat by Pulse Oximetry (%) Laboratory Tests 12/06/17 12/07/17 12/07/17 22:10 07:00 07:00 WBC 4.9 D RBC 4.77 Hgb 14.2 Hct 43.1 MCV 90.4 MCH 29.7 MCHC 32.9 RDW 13.4 Plt Count 226 MPV 7.9 Sodium 138 Potassium 4.3 Chloride 104 Carbon Dioxide 27 Anion Gap 7 L BUN 17 D Creatinine 0.8 Creat Clearance w eGFR > 60 Random Glucose 78 Calcium 8.1 L Total Bilirubin 0.6 D AST 20 D ALT 23 Alkaline Phosphatase 91 Total Protein 6.4 Albumin 3.6 Urine Color Yellow Urine Appearance Turbid Urine pH 5.0 Ur Specific [place] 1.032 Urine Protein Negative Urine Glucose (UA) Negative Urine Ketones Trace H Urine Blood 2+ H Urine Nitrite Negative Urine Bilirubin Negative Urine Urobilinogen 2.0 Ur Leukocyte Esterase Negative Urine WBC (Auto) 154 Urine RBC (Auto) None Urine Mucus Rare RPR Titer 12/07/17 07:00 WBC RBC Hgb Hct MCV MCH MCHC RDW Plt Count MPV Sodium Potassium Chloride Carbon Dioxide Anion Gap BUN Creatinine Creat Clearance w eGFR Random Glucose Calcium Total Bilirubin AST ALT Alkaline Phosphatase Total Protein Albumin Urine Color Urine Appearance Urine pH Ur Specific [place] Urine Protein Urine Glucose (UA) Urine Ketones Urine Blood Urine Nitrite Urine Bilirubin Urine Urobilinogen Ur Leukocyte Esterase Urine WBC (Auto) Urine RBC (Auto) Urine Mucus RPR Titer Nonreactive LABS NOTED. Assessment: 12/08/17 12:02 WITHDRAWAL SYMPTOMS. Plan: CONTINUE DETOX. INCREASE DAILY PO FLUID INTAKE.
[2017-12-08] MEDS ORDERED: diphenhydrAMINE HCL 25 MG CAPSULE (FP) PO ONE (22:30)
[2017-12-08] MEDS: diphenhydrAMINE HCL 50 MG CAPSULE PO PRN (22:31)
[2017-12-08] MEDS: THIAMINE HCL 100 MG TABLET (FP) PO SCH (22:36)
[2017-12-09] MEDS ORDERED: METHADONE HCL 5 MG TABLET (FOR DETOX USE ONLY) PO ONE (10:00)
[2017-12-09] MEDS: PRENATAL VITAMINS W/ FOLIC ACID TABLET (FP) PO SCH (10:10)
[2017-12-09] MEDS: diazePAM 5 MG TABLET PO PRN (10:12)
--- NOTE | 2017-12-09 17:31 | PN ---
[facility] Progress Note (SOAP) Subjective: Fatigue, Sweating, Anxious. Objective: PT. A & O X 3. NO ACUTE DISTRESS. 12/09/17 17:29 Vital Signs Temperature 97.2 F L 12/09/17 14:33 Pulse Rate 74 12/09/17 14:33 Respiratory Rate 19 12/09/17 14:33 Blood Pressure 100/69 12/09/17 14:33 O2 Sat by Pulse Oximetry (%) Laboratory Tests 12/06/17 12/07/17 12/07/17 22:10 07:00 07:00 WBC 4.9 D RBC 4.77 Hgb 14.2 Hct 43.1 MCV 90.4 MCH 29.7 MCHC 32.9 RDW 13.4 Plt Count 226 MPV 7.9 Sodium 138 Potassium 4.3 Chloride 104 Carbon Dioxide 27 Anion Gap 7 L BUN 17 D Creatinine 0.8 Creat Clearance w eGFR > 60 Random Glucose 78 Calcium 8.1 L Total Bilirubin 0.6 D AST 20 D ALT 23 Alkaline Phosphatase 91 Total Protein 6.4 Albumin 3.6 Urine Color Yellow Urine Appearance Turbid Urine pH 5.0 Ur Specific [place] 1.032 Urine Protein Negative Urine Glucose (UA) Negative Urine Ketones Trace H Urine Blood 2+ H Urine Nitrite Negative Urine Bilirubin Negative Urine Urobilinogen 2.0 Ur Leukocyte Esterase Negative Urine WBC (Auto) 154 Urine RBC (Auto) None Urine Mucus Rare RPR Titer 12/07/17 07:00 WBC RBC Hgb Hct MCV MCH MCHC RDW Plt Count MPV Sodium Potassium Chloride Carbon Dioxide Anion Gap BUN Creatinine Creat Clearance w eGFR Random Glucose Calcium Total Bilirubin AST ALT Alkaline Phosphatase Total Protein Albumin Urine Color Urine Appearance Urine pH Ur Specific [place] Urine Protein Urine Glucose (UA) Urine Ketones Urine Blood Urine Nitrite Urine Bilirubin Urine Urobilinogen Ur Leukocyte Esterase Urine WBC (Auto) Urine RBC (Auto) Urine Mucus RPR Titer Nonreactive LABS NOTED. Assessment: 12/09/17 17:29 WITHDRAWAL SYMPTOMS. Plan: CONTINUE DETOX. INCREASE DAILY PO FLUID INTAKE. REPEAT UA FOR ADMISSION ABNORMALITIES.
[2017-12-09] MEDS: hydrOXYzine PAMOATE 50 MG CAPSULE (FP) PO PRN (19:58)
[2017-12-09] MEDS: THIAMINE HCL 100 MG TABLET (FP) PO SCH (22:10)
[2017-12-10 00:12] LABS: URINE APPEARANCE CLEAR; URINE BILIRUBIN NEGATIVE (NEGATIVE); URINE BLOOD NEGATIVE (NEGATIVE); URINE COLOR YELLOW; URINE GLUCOSE (UA) NEGATIVE (NEGATIVE); URINE KETONE NEGATIVE (NEGATIVE); URINE LEUK ESTERASE NEGATIVE (NEGATIVE); URINE NITRITE NEGATIVE (NEGATIVE); URINE PROTEIN NEGATIVE (NEGATIVE); URINE UROBILINOGEN NEGATIVE mg/dL (0.2-1.0)
[2017-12-10] MEDS ORDERED: METHADONE HCL 10 MG TABLET (FOR DETOX USE ONLY) PO ONE (10:00)
[2017-12-10] MEDS: PRENATAL VITAMINS W/ FOLIC ACID TABLET (FP) PO SCH (10:07)
--- NOTE | 2017-12-10 14:32 | PN ---
S Progress Note (SOAP) Subjective: ALERT,IRRITABLE,ANXIOUS,INTERRUPTED SLEEP Objective: 12/10/17 14:31 Vital Signs Temperature 97.0 F L 12/10/17 13:41 Pulse Rate 68 12/10/17 13:41 Respiratory Rate 18 12/10/17 13:41 Blood Pressure 120/82 12/10/17 13:41 O2 Sat by Pulse Oximetry (%) Assessment: 12/10/17 14:31 WITHDRAWAL SYMPTOM Plan: CONTINUE DETOX,DISCHARGE IN AM
[2017-12-10] MEDS: THIAMINE HCL 100 MG TABLET (FP) PO SCH (23:38)
[2017-12-11] MEDS ORDERED: METHADONE HCL 5 MG TABLET (FOR DETOX USE ONLY) PO ONE (06:00)
[2017-12-11] MEDS: hydrOXYzine PAMOATE 50 MG CAPSULE (FP) PO PRN (06:09)
[2017-12-11] MEDS: PRENATAL VITAMINS W/ FOLIC ACID TABLET (FP) PO SCH (10:09)
--- NOTE | 2017-12-11 17:14 | PN ---
[facility] Progress Note (SOAP) Subjective: Anxious, Interrupted Sleep, Fatigue, Sweating. Objective: PT. A & O X 3, OBSERVED AMBULATING ON UNIT. NO ACUTE DISTRESS. 12/11/17 17:12 Vital Signs Temperature 97.4 F L 12/11/17 14:00 Pulse Rate 81 12/11/17 14:00 Respiratory Rate 18 12/11/17 14:00 Blood Pressure 123/84 12/11/17 14:00 O2 Sat by Pulse Oximetry (%) Laboratory Tests 12/06/17 12/07/17 12/07/17 22:10 07:00 07:00 WBC 4.9 D RBC 4.77 Hgb 14.2 Hct 43.1 MCV 90.4 MCH 29.7 MCHC 32.9 RDW 13.4 Plt Count 226 MPV 7.9 Sodium 138 Potassium 4.3 Chloride 104 Carbon Dioxide 27 Anion Gap 7 L BUN 17 D Creatinine 0.8 Creat Clearance w eGFR > 60 Random Glucose 78 Calcium 8.1 L Total Bilirubin 0.6 D AST 20 D ALT 23 Alkaline Phosphatase 91 Total Protein 6.4 Albumin 3.6 Urine Color Yellow Urine Appearance Turbid Urine pH 5.0 Ur Specific [place] 1.032 Urine Protein Negative Urine Glucose (UA) Negative Urine Ketones Trace H Urine Blood 2+ H Urine Nitrite Negative Urine Bilirubin Negative Urine Urobilinogen 2.0 Ur Leukocyte Esterase Negative Urine WBC (Auto) 154 Urine RBC (Auto) None Urine Mucus Rare RPR Titer 12/07/17 12/09/17 07:00 00:00 WBC RBC Hgb Hct MCV MCH MCHC RDW Plt Count MPV Sodium Potassium Chloride Carbon Dioxide Anion Gap BUN Creatinine Creat Clearance w eGFR Random Glucose Calcium Total Bilirubin AST ALT Alkaline Phosphatase Total Protein Albumin Urine Color Yellow Urine Appearance Clear Urine pH 5.0 Ur Specific [place] 1.018 Urine Protein Negative Urine Glucose (UA) Negative Urine Ketones Negative Urine Blood Negative Urine Nitrite Negative Urine Bilirubin Negative Urine Urobilinogen Negative Ur Leukocyte Esterase Negative Urine WBC (Auto) Urine RBC (Auto) Urine Mucus RPR Titer Nonreactive LABS NOTED. Assessment: 12/11/17 17:12 WITHDRAWAL SYMPTOMS. Plan: CONTINUE DETOX. INCREASE DAILY PO FLUID INTAKE. DUE TO LINGERING DETOX SYMPTOMS, PATIENT TO REMAIN ON DETOX UNIT UNTIL TOMORROW AM, AT WHICH TIME HE WILL BE TAKEN TO [facility] FOR AFTERCARE.
[2017-12-11] MEDS: THIAMINE HCL 100 MG TABLET (FP) PO SCH (22:22)
[2017-12-11] MEDS: diphenhydrAMINE HCL 50 MG CAPSULE PO PRN (22:22)
[2017-12-12 06:28] VITALS: BP 118/78; PULSE 56; TEMP 97.3
--- NOTE | 2017-12-12 12:28 | DS ---
[facility] Detox Discharge Summary Admission Date: 12/06/17 Discharge Date: 12/12/17 - History Present History: Opioid Dependence Additional Comments: DETOX COMPLETED. ALERT O X 3. NAD. Pertinent Past History: SEE DX BELOW - Physical Exam Results Vital Signs: Vital Signs Temperature 97.3 F L 12/12/17 06:27 Pulse Rate 56 L 12/12/17 06:27 Respiratory Rate 18 12/12/17 06:27 Blood Pressure 118/78 12/12/17 06:27 O2 Sat by Pulse Oximetry (%) Pertinent Admission Physical Exam Findings: WITHDRAWAL SX Laboratory Last Values WBC 4.9 K/mm3 (4.0-10.0) D 12/07/17 07:00 RBC 4.77 M/mm3 (4.00-5.60) 12/07/17 07:00 Hgb 14.2 GM/dL (11.7-16.9) 12/07/17 07:00 Hct 43.1 % (35.4-49) 12/07/17 07:00 MCV 90.4 fl (80-96) 12/07/17 07:00 MCH 29.7 pg (25.7-33.7) 12/07/17 07:00 MCHC 32.9 g/dl (32.0-35.9) 12/07/17 07:00 RDW 13.4 % (11.9-15.9) 12/07/17 07:00 Plt Count 226 K/MM3 (134-434) 12/07/17 07:00 MPV 7.9 fl (7.5-11.1) 12/07/17 07:00 Sodium 138 mmol/L (136-145) 12/07/17 07:00 Potassium 4.3 mmol/L (3.5-5.1) 12/07/17 07:00 Chloride 104 mmol/L (98-107) 12/07/17 07:00 Carbon Dioxide 27 mmol/L (21-32) 12/07/17 07:00 Anion Gap 7 (8-16) L 12/07/17 07:00 BUN 17 mg/dL (7-18) D 12/07/17 07:00 Creatinine 0.8 mg/dL (0.7-1.3) 12/07/17 07:00 Creat Clearance w eGFR > 60 (>60) 12/07/17 07:00 Random Glucose 78 mg/dL (74-106) 12/07/17 07:00 Calcium 8.1 mg/dL (8.5-10.1) L 12/07/17 07:00 Total Bilirubin 0.6 mg/dL (0.2-1.0) D 12/07/17 07:00 AST 20 U/L (15-37) D 12/07/17 07:00 ALT 23 U/L (12-78) 12/07/17 07:00 Alkaline Phosphatase 91 U/L (45-117) 12/07/17 07:00 Total Protein 6.4 g/dl (6.4-8.2) 12/07/17 07:00 Albumin 3.6 g/dl (3.4-5.0) 12/07/17 07:00 Urine Color Yellow 12/09/17 00:00 Urine Appearance Clear 12/09/17 00:00 Urine pH 5.0 (5.0-8.0) 12/09/17 00:00 Ur Specific [place] 1.018 (1.001-1.035) 12/09/17 00:00 Urine Protein Negative (NEGATIVE) 12/09/17 00:00 Urine Glucose (UA) Negative (NEGATIVE) 12/09/17 00:00 Urine Ketones Negative (NEGATIVE) 12/09/17 00:00 Urine Blood Negative (NEGATIVE) 12/09/17 00:00 Urine Nitrite Negative (NEGATIVE) 12/09/17 00:00 Urine Bilirubin Negative (NEGATIVE) 12/09/17 00:00 Urine Urobilinogen Negative mg/dL (0.2-1.0) 12/09/17 00:00 Ur Leukocyte Esterase Negative (NEGATIVE) 12/09/17 00:00 Urine WBC (Auto) 154 /hpf (3-5) 12/06/17 22:10 Urine RBC (Auto) None /hpf (0-3) 12/06/17 22:10 Urine Mucus Rare 12/06/17 22:10 RPR Titer Nonreactive (NONREACTIVE) 12/07/17 07:00 - Treatment Hospital Course: Detox Protocol Followed, Detoxed Safely, Responded well, Discharged Condition Good - Medication Discharge Medications: Ambulatory Orders Albuterol Sulfate Inhaler - [Ventolin HFA Inhaler -] 2 inh PO Q4H PRN #1 inhaler 09/18/17 - Diagnosis (1) Opioid dependence with withdrawal Status: Acute (2) Asthma Status: Chronic Qualifiers: Asthma severity: mild Asthma persistence: intermittent Asthma complication type: uncomplicated Qualified Code(s): J45.20 - Mild intermittent asthma, uncomplicated (3) Nicotine dependence Status: Acute Qualifiers: Nicotine product type: cigarettes Substance use status: in withdrawal Qualified Code(s): F17.213 - Nicotine dependence, cigarettes, with withdrawal - AMA Did Patient Leave Against Medical Advice: No
== END 2017-12-12 09:25 | disposition home or self-care (01) | DRG 773 ==
LOC: YASAS 11:43 → Y3N 17:30
PROVIDERS: ADMIT Internal Medicine; ATTEND Internal Medicine
PROC: HZ2ZZZZ Detoxification Services for Substance Abuse Treatment (ICD-10-PCS; principal; 2017-12-06)
DX: F11.23 Opioid dependence with withdrawal (principal); F17.213 Nicotine dependence, cigarettes, with withdrawal; J45.20 Mild intermittent asthma, uncomplicated
CPT/HCPCS: 36415; 80053; 81003; 81015; 85027; 86593; 93005; 93010

== ENCOUNTER 2018-01-11 13:29 | Inpatient (IN) | payer OTHER ==
[2018-01-11 17:03] VITALS: BMI 23.8
--- NOTE | 2018-01-11 17:11 | HP ---
COWS - Scale Resting Pulse: 0= [place] 80 or Below Sweatin= Chills/Flushing Restless Observation: 1= Difficult to Sit Still Pupil Size: 1= Pupils >than Normal Bone or Joint Aches: 2= Severe Diffuse Aches Runny Nose/ Eye Tearin= Nasal Congestion GI Upset > 30mins: 1= Stomach Cramp Tremor Observation: 2= Slight Tremor Visible Yawning Observation: 1= 1-2x During Session Anxiety or Irritability: 2=Irritable/Anxious Goose Flesh Skin: 0=Smooth Skin COWS Score: 12 Admission ROS S - HPI Allergies/Adverse Reactions: Allergies Allergy/AdvReac Type Severity Reaction Status Date / Time shellfish derived Allergy Severe Swelling Verified 01/11/18 16:51 No Known Drug Allergies Allergy Verified 01/11/18 16:51 Exam Limitations: No Limitations - Ebola screening Have you traveled outside of the country in the last 21 days: No Have you had contact with anyone from an Ebola affected area: No Have you been sick,other than usual withdrawal symptoms: No Do you have a fever: No - Review of Systems Constitutional: Night Sweats, Changes in sleep, Weakness, Unintentional Wgt. Loss EENT: reports: No Symptoms Reported Respiratory: reports: No Symptoms reported GI: reports: Poor Fluid Intake, Abdominal cramping : reports: No Symptoms Reported Musculoskeletal: reports: Back Pain, Joint Pain, Muscle Pain Integumentary: reports: No Symptoms Reported, Dryness Neuro: reports: No Symptoms reported, Tremors Endocrine: reports: Increased Thirst, Unexplained Weight Loss Hematology: reports: No Symptoms Reported Psychiatric: reports: Anxious Patient History - Patient Medical History Hx Anemia: No Hx Asthma: Yes Hx Chronic Obstructive Pulmonary Disease (COPD): No Hx Cancer: No Hx Cardiac Disorders: No Hx Congestive Heart Failure: No Hx Hypertension: No Hx Hypercholesterolemia: No Hx Pacemaker: No HX Cerebrovascular Accident: No Hx Seizures: No Hx Dementia: No Hx Diabetes: No Hx Gastrointestinal Disorders: No Hx Liver Disease: No Hx Genitourinary Disorders: No Hx Sexually Transmitted Disorders: No Hx Renal Disease (ESRD): No Hx Thyroid Disease: No Hx Human Immunodeficiency Virus (HIV): No (negative) Hx Hepatitis C: No (negative) Hx Depression: No Hx Suicide Attempt: No Hx Bipolar Disorder: No Hx Schizophrenia: No - Patient Surgical History Past Surgical History: No Hx Neurologic Surgery: No Hx Cataract Extraction: No Hx Cardiac Surgery: No Hx Lung Surgery: No Hx Breast Surgery: No Hx Breast Biopsy: No Hx Abdominal Surgery: No Hx Appendectomy: No Hx Cholecystectomy: No Hx Genitourinary Surgery: No Hx Section: No Hx Orthopedic Surgery: No Anesthesia Reaction: Yes - PPD History Previous Implant?: Yes Documented Results: Negative w/proof Implanted On Prior [facility] Admission?: Yes Date: 04/10/17 Results: 0 mm - Smoking Cessation Smoking history: Former smoker Have you smoked in the past 12 months: Yes Aproximately how many cigarettes per day: 6 If you are a former smoker, when did you quit?: 4 days ago Cigars Per Day: 0 Hx Chewing Tobacco Use: No Initiated information on smoking cessation: Yes 'Breaking Loose' booklet given: 01/11/18 - Substance & Tx. History Hx Alcohol Use: No Hx Substance Use: Yes Substance Use Type: Heroin, Marijuana Hx Substance Use Treatment: Yes (Pt admitted 11/2017 to detox at [facility]) - Substances Abused Heroin Route: Inhalation Frequency: Daily Amount used: 5-10 bags Age of first use: 34 Date of Last Use: 01/11/18 Family Disease History - Family Disease History Family Disease History: Diabetes: Father (HTN,[place], ), Heart Disease: Father, Respiratory: Mother (Asthma) Admission Physical Exam S - Vital Signs Vital Signs: Vital Signs - 24 hr 01/11/18 16:52 Temperature 97.4 F L Pulse Rate 59 L Respiratory 18 Rate Blood Pressure 120/71 - Physical General Appearance: Yes: Disheveled, Thin, Anxious HEENTM: Yes: Hearing grossly Normal, Normocephalic, Normal Voice, [place], Pharynx Normal Respiratory: Yes: Chest Non-Tender, Lungs Clear, Normal Breath Sounds, No Respiratory Distress, No Accessory Muscle Use Neck: Yes: Within Normal Limits, No masses,lesions,Nodules, Supple Breast: Yes: Breast Exam Deferred Cardiology: Yes: Within Normal Limits, Regular Rhythm, Regular Rate, S1, S2 Abdominal: Yes: Within Normal Limits, Normal Bowel Sounds, Non Tender, Flat, Soft Genitourinary: Yes: Within Normal Limits Back: Yes: Muscle Spasm Musculoskeletal: Yes: full range of Motion, Gait Steady, Back pain, Muscle Pain Extremities: Yes: Within Normal Limits, Normal Range of Motion, Tremors Neurological: Yes: Within Normal Limits, deputy administrator II-XII NML intact, Fully Oriented, Alert, Normal Mood/Affect Integumentary: Yes: Within Normal Limits, Normal Color, Dry, Warm Lymphatic: Yes: Within Normal Limits Cleared for Admission [facility] - Detox or Rehab [facility] Level of Care: Medically Managed Detox Regimen/Protocol: Methadone Screened but not Admitted - Documentation of Visit Screened but not Admitted: No Left Prior to Completion of Assessment: No Insurance Authorization Denied: No Patient Does Not Meet Criteria for Admission: No Alternative Treatment/Long Term Info Provided: No [facility] Breath Alcohol Content Breath Alcohol Content: 0 Urine Drug Screen - Results Drug Screen Negative: No Urine Drug Screen Results: THC-Marijuana, OPI-Opiates Inpatient Rehab Admission - Initial Determination Are CD services needed?: Yes Free of communicable disease: Yes Not in need of hospitalization: No - Rehab Admission Criteria Previous failed treatment: Yes Poor recovery environment: Yes Comorbidities: Yes Lacks judgement: Yes
[2018-01-11] MEDS ORDERED: MENTHOL/PHENOL 1 EACH UD MM PRN (17:37)
[2018-01-11] MEDS ORDERED: P-EPHED 60MG/TRIPROLIDI 2.5MG TABLET PO PRN (17:37)
[2018-01-11] MEDS ORDERED: MAGNESIUM CITRATE 300 ML BOTTLE PO PRN (17:37)
[2018-01-11] MEDS ORDERED: MAG HYDROX/AL HYDROX/SIMETH 30 ML UNIT-DOSE CUP PO PRN (17:37)
[2018-01-11] MEDS ORDERED: LOPERAMIDE HCL 2 MG CAPSULE PO PRN (17:37)
[2018-01-11] MEDS ORDERED: ACETAMINOPHEN 325 MG TABLET (FP) PO PRN (17:37)
[2018-01-11] MEDS ORDERED: MAGNESIUM HYDROX 2400MG/30ML ORAL SUSPENSION 30 ML CUP PO PRN (17:37)
[2018-01-11] MEDS ORDERED: guaiFENesin/D-METHORPHAN HB 10 ML UNIT-DOSE CUPS PO PRN (17:37)
[2018-01-11] MEDS ORDERED: IBUPROFEN 400 MG TABLET (FP) PO PRN (17:37)
[2018-01-11] MEDS ORDERED: ALBUTEROL SO4 2.5/IPRATROPIUM 0.5 INH SOL 3 ML VIAL.NEB. NEB PRN (17:51)
[2018-01-11] MEDS ORDERED: METHADONE HCL 10 MG TABLET (FOR DETOX USE ONLY) PO ONE ×2 (18:15→23:00)
[2018-01-11] MEDS: diazePAM 5 MG TABLET PO PRN ×2 (19:35→22:49)
[2018-01-11] MEDS: MELATONIN 5 MG TABLETS PO SCH (22:48)
[2018-01-11] MEDS: THIAMINE HCL 100 MG TABLET (FP) PO SCH (22:48)
[2018-01-11 22:50] LABS: URINE APPEARANCE CLEAR; URINE BILIRUBIN NEGATIVE (NEGATIVE); URINE BLOOD 2+ (NEGATIVE); URINE COLOR YELLOW; URINE GLUCOSE (UA) NEGATIVE (NEGATIVE); URINE KETONE NEGATIVE (NEGATIVE); URINE LEUK ESTERASE NEGATIVE (NEGATIVE); URINE NITRITE NEGATIVE (NEGATIVE); URINE PROTEIN NEGATIVE (NEGATIVE); URINE UROBILINOGEN NEGATIVE mg/dL (0.2-1.0)
[2018-01-11 23:02] LABS: CALCIUM OXALATE CRYSTALS RARE /hpf (NONE SEEN); URINE MUCUS MANY
--- NOTE | 2018-01-12 09:52 | CONSULT ---
[facility] Psychiatric Consult - Data Date of interview: 01/12/18 Admission source: [facility] Identifying data: Pt. is a 43 year old single male, father of two, unemployed, homeless, and not receiving financial assistance. This is one of multiple admissions for patient. Pt. admitted to for opioid dependence. Substance Abuse History: Following information confirmed with Mr. Rogers: Smoking Cessation. Smoking history: Former smoker. Have you smoked in the past 12 months: Yes. Aproximately how many cigarettes per day: 6. If you are a former smoker, when did you quit?: 4 days ago. Cigars Per Day: 0. Hx Chewing Tobacco Use: No. Initiated information on smoking cessation: Yes. ' Breaking Loose' booklet given: 01/11/18. - Substance & Tx. History. Hx Alcohol Use: No. Hx Substance Use: Yes. Substance Use Type: Heroin, Marijuana. Hx Substance Use Treatment: Yes (Pt admitted 11/2017 to detox at [facility]) . - Substances Abused. Heroin. Route: Inhalation. Frequency: Daily. Amount used: 5-10 bags. Age of first use: 34. Date of Last Use: 01/11/18 Medical History: Asthma. Psychiatric History: Pt. denies h/o psychiatric hospitalizations, outpatient treatment, and suicide attempt. Physical/Sexual Abuse/Trauma History: Denies. Mental Status Exam - Mental Status Exam Alert and Oriented to: Time, Place, Person Cognitive Function: Good Patient Appearance: Well Groomed Mood: Euthymic Affect: Mood Congruent Patient Behavior: Cooperative Speech Pattern: Appropriate Voice Loudness: Normal Thought Process: Goal Oriented Thought Disorder: Not Present Hallucinations: Denies Suicidal Ideation: Denies Homicidal Ideation: Denies Insight/Judgement: Poor Sleep: Poorly Appetite: Fair Muscle strength/Tone: Normal Gait/Station: Normal Psychiatric Findings - Problem List ([place] 1, 2,3) (1) Insomnia Current Visit: Yes Status: Acute (2) Opioid dependence with withdrawal Current Visit: Yes Status: Acute (3) Opioid dependence Current Visit: Yes Status: Chronic (4) Cannabis dependence, uncomplicated Current Visit: Yes Status: Acute - Initial Treatment Plan Initial Treatment Plan: Psychoeducation provided. Detoxification provided. Benadryl 50mg qhs prn ordered for insomnia. Benefits and side effects discussed. Verbal consent given. Will continue to monitor.
[2018-01-12 10:00] LABS: HEMATOCRIT 43.6 % (35.4-49); HEMOGLOBIN 14.5 GM/dL (11.7-16.9); MCH 29.6 pg (25.7-33.7); MCHC 33.2 g/dl (32.0-35.9); MEAN PLT VOLUME 7.8 fl (7.5-11.1); PLATELET COUNT 257 K/MM3 (134-434); WHITE BLOOD COUNT 5.3 K/mm3 (4.0-10.0)
[2018-01-12] MEDS ORDERED: METHADONE HCL 10 MG TABLET (FOR DETOX USE ONLY) PO ONE (10:00)
--- NOTE | 2018-01-12 10:04 | EKG ---
Test Reason : Blood Pressure : / mmHG Vent. Rate : 059 BPM Atrial Rate : 059 BPM P-R Int : 142 ms QRS Dur : 086 ms QT Int : 416 ms P-R-T Axes : 057 074 051 degrees QTc Int : 411 ms SINUS BRADYCARDIA WITH SINUS ARRHYTHMIA WHEN COMPARED WITH ECG OF 06-DEC-2017 18:46, NO SIGNIFICANT CHANGE WAS FOUND Confirmed by JUAN SAUCEDA MD ([id number]) on 01/12/2018 10:04:22 AM Referred By: Armando Burk Confirmed By:JUAN SAUCEDA MD
[2018-01-12] MEDS: PRENATAL VITAMINS W/ FOLIC ACID TABLET (FP) PO SCH (10:15)
[2018-01-12] MEDS: diazePAM 5 MG TABLET PO PRN ×3 (10:16→21:55)
[2018-01-12 10:17] LABS: ALBUMIN 3.5 g/dl (3.4-5.0); ANION GAP 8 (8-16); BLOOD UREA NITROGEN 15 mg/dL (7-18); CALCIUM 8.6 mg/dL (8.5-10.1); CHLORIDE 103 mmol/L (98-107); CO2 27 mmol/L (21-32); GLUCOSE,RANDOM 82 mg/dL (74-106); POTASSIUM 4.2 mmol/L (3.5-5.1); SODIUM 138 mmol/L (136-145)
[2018-01-12 10:21] LABS: ALK PHOS 104 U/L (45-117); BILIRUBIN,TOTAL 0.5 mg/dL (0.2-1.0); CREATININE 0.7 mg/dL (0.7-1.3); SGOT/AST 18 U/L (15-37); SGPT/ALT 21 U/L (12-78); TOT PROT 6.6 g/dl (6.4-8.2)
[2018-01-12] MEDS ORDERED: CYCLOBENZAPRINE HCL 10 MG TABLET (FP) PO PRN (12:11)
--- NOTE | 2018-01-12 12:21 | PN ---
[facility] COWS - Scale Resting Pulse: 0= [place] 80 or Below Sweatin= Chills/Flushing Restless Observation: 3= Extraneous Movement Pupil Size: 1= Pupils >than Normal Bone or Joint Aches: 2= Severe Diffuse Aches Runny Nose/ Eye Tearin= Runny Nose/Eyes GI Upset > 30mins: 2= Nausea/Diarrhea Tremor Observation of Outstretched Hands: 2= Slight Tremor Visible Yawning Observation: 1= 1-2x During Session Anxiety or Irritability: 2=Irritable/Anxious Goose Flesh Skin: 0=Smooth Skin COWS Score: 16 S Progress Note (SOAP) Subjective: ALERT,IRRITABLE,ANXIOUS,INTERRUPTED SLEEP,TREMOR,PAIN IN THE BODY AND BACK Objective: 01/12/18 12:17 Vital Signs Temperature 96.6 F L 01/12/18 09:31 Pulse Rate 71 01/12/18 09:31 Respiratory Rate 18 01/12/18 09:31 Blood Pressure 139/83 01/12/18 09:31 O2 Sat by Pulse Oximetry (%) EKG SINUS BRADYCARDIA 59/MIN,SINUS ARRHYTHMIA NO CHEST PAIN,NO SOB,NO DIZZINESS Laboratory Last Values WBC 5.3 K/mm3 (4.0-10.0) 01/12/18 07:00 RBC 4.90 M/mm3 (4.00-5.60) 01/12/18 07:00 Hgb 14.5 GM/dL (11.7-16.9) 01/12/18 07:00 Hct 43.6 % (35.4-49) 01/12/18 07:00 MCV 89.0 fl (80-96) 01/12/18 07:00 MCH 29.6 pg (25.7-33.7) 01/12/18 07:00 MCHC 33.2 g/dl (32.0-35.9) 01/12/18 07:00 RDW 13.0 % (11.9-15.9) 01/12/18 07:00 Plt Count 257 K/MM3 (134-434) 01/12/18 07:00 MPV 7.8 fl (7.5-11.1) 01/12/18 07:00 Sodium 138 mmol/L (136-145) 01/12/18 07:00 Potassium 4.2 mmol/L (3.5-5.1) 01/12/18 07:00 Chloride 103 mmol/L (98-107) 01/12/18 07:00 Carbon Dioxide 27 mmol/L (21-32) 01/12/18 07:00 Anion Gap 8 (8-16) 01/12/18 07:00 BUN 15 mg/dL (7-18) 01/12/18 07:00 Creatinine 0.7 mg/dL (0.7-1.3) 01/12/18 07:00 Creat Clearance w eGFR > 60 (>60) 01/12/18 07:00 Random Glucose 82 mg/dL (74-106) 01/12/18 07:00 Calcium 8.6 mg/dL (8.5-10.1) 01/12/18 07:00 Total Bilirubin 0.5 mg/dL (0.2-1.0) 01/12/18 07:00 AST 18 U/L (15-37) 01/12/18 07:00 ALT 21 U/L (12-78) 01/12/18 07:00 Alkaline Phosphatase 104 U/L (45-117) 01/12/18 07:00 Total Protein 6.6 g/dl (6.4-8.2) 01/12/18 07:00 Albumin 3.5 g/dl (3.4-5.0) 01/12/18 07:00 Urine Color Yellow 01/11/18 14:57 Urine Appearance Clear 01/11/18 14:57 Urine pH 5.0 (5.0-8.0) 01/11/18 14:57 Ur Specific [place] 1.024 (1.001-1.035) 01/11/18 14:57 Urine Protein Negative (NEGATIVE) 01/11/18 14:57 Urine Glucose (UA) Negative (NEGATIVE) 01/11/18 14:57 Urine Ketones Negative (NEGATIVE) 01/11/18 14:57 Urine Blood 2+ (NEGATIVE) H 01/11/18 14:57 Urine Nitrite Negative (NEGATIVE) 01/11/18 14:57 Urine Bilirubin Negative (NEGATIVE) 01/11/18 14:57 Urine Urobilinogen Negative mg/dL (0.2-1.0) 01/11/18 14:57 Ur Leukocyte Esterase Negative (NEGATIVE) 01/11/18 14:57 Urine WBC (Auto) <1 /hpf (3-5) 01/11/18 14:57 Urine RBC (Auto) 8 /hpf (0-3) 01/11/18 14:57 Calcium Oxalate Crystal Rare /hpf (NONE SEEN) 01/11/18 14:57 Urine Mucus Many 01/11/18 14:57 01/12/18 12:20 RPR PENDING Assessment: 01/12/18 12:20 WITHDRAWAL SYMPTOM Plan: CONTINUE DETOX
[2018-01-12] MEDS: cloNIDine HCL 0.1 MG TABLET PO SCH (21:55)
[2018-01-12] MEDS: MELATONIN 5 MG TABLETS PO SCH (21:55)
[2018-01-12] MEDS: THIAMINE HCL 100 MG TABLET (FP) PO SCH (21:55)
[2018-01-13] MEDS: diazePAM 5 MG TABLET PO PRN ×3 (01:32→19:06)
[2018-01-13] MEDS ORDERED: METHADONE HCL 5 MG TABLET (FOR DETOX USE ONLY) PO ONE (10:00)
[2018-01-13] MEDS: cloNIDine HCL 0.1 MG TABLET PO SCH ×2 (10:26→22:39)
[2018-01-13] MEDS: PRENATAL VITAMINS W/ FOLIC ACID TABLET (FP) PO SCH (10:26)
--- NOTE | 2018-01-13 20:55 | PN ---
[facility] Progress Note (SOAP) Subjective: sleep disturbance sweats Objective: 01/13/18 20:54 Sleeepy but arousable to verbal stimuli A & O x 3 Vital Signs Temperature 100.2 F H 01/13/18 17:35 Pulse Rate 64 01/13/18 17:35 Respiratory Rate 18 01/13/18 17:35 Blood Pressure 106/60 01/13/18 17:35 O2 Sat by Pulse Oximetry (%) Assessment: 01/13/18 20:54 withdrawal sx Plan: continue detox
[2018-01-13] MEDS: MELATONIN 5 MG TABLETS PO SCH (22:39)
[2018-01-13] MEDS: THIAMINE HCL 100 MG TABLET (FP) PO SCH (22:39)
[2018-01-14] MEDS: diazePAM 5 MG TABLET PO PRN (04:06)
[2018-01-14] MEDS ORDERED: METHADONE HCL 5 MG TABLET (FOR DETOX USE ONLY) PO ONE (10:00)
[2018-01-14 11:40] VITALS: BP 119/76; PULSE 66; TEMP 96.8
--- NOTE | 2018-01-14 12:13 | DS ---
[facility] Detox Discharge Summary Admission Date: 01/11/18 Discharge Date: 01/14/18 - History Present History: Opioid Dependence Additional Comments: patient insists to determinate the detox regimen patient wants to return to the community encourage the patient to attend community support group and health teaching on risks of heroin - Physical Exam Results Vital Signs: Vital Signs Temperature 96.8 F L 01/14/18 10:00 Pulse Rate 66 01/14/18 10:00 Respiratory Rate 18 01/14/18 10:00 Blood Pressure 119/76 01/14/18 10:00 O2 Sat by Pulse Oximetry (%) Pertinent Admission Physical Exam Findings: withdrawal sx Vital Signs Temperature 96.8 F L 01/14/18 10:00 Pulse Rate 66 01/14/18 10:00 Respiratory Rate 18 01/14/18 10:00 Blood Pressure 119/76 01/14/18 10:00 O2 Sat by Pulse Oximetry (%) Laboratory Last Values WBC 5.3 K/mm3 (4.0-10.0) 01/12/18 07:00 RBC 4.90 M/mm3 (4.00-5.60) 01/12/18 07:00 Hgb 14.5 GM/dL (11.7-16.9) 01/12/18 07:00 Hct 43.6 % (35.4-49) 01/12/18 07:00 MCV 89.0 fl (80-96) 01/12/18 07:00 MCH 29.6 pg (25.7-33.7) 01/12/18 07:00 MCHC 33.2 g/dl (32.0-35.9) 01/12/18 07:00 RDW 13.0 % (11.9-15.9) 01/12/18 07:00 Plt Count 257 K/MM3 (134-434) 01/12/18 07:00 MPV 7.8 fl (7.5-11.1) 01/12/18 07:00 Sodium 138 mmol/L (136-145) 01/12/18 07:00 Potassium 4.2 mmol/L (3.5-5.1) 01/12/18 07:00 Chloride 103 mmol/L (98-107) 01/12/18 07:00 Carbon Dioxide 27 mmol/L (21-32) 01/12/18 07:00 Anion Gap 8 (8-16) 01/12/18 07:00 BUN 15 mg/dL (7-18) 01/12/18 07:00 Creatinine 0.7 mg/dL (0.7-1.3) 01/12/18 07:00 Creat Clearance w eGFR > 60 (>60) 01/12/18 07:00 Random Glucose 82 mg/dL (74-106) 01/12/18 07:00 Calcium 8.6 mg/dL (8.5-10.1) 01/12/18 07:00 Total Bilirubin 0.5 mg/dL (0.2-1.0) 01/12/18 07:00 AST 18 U/L (15-37) 01/12/18 07:00 ALT 21 U/L (12-78) 01/12/18 07:00 Alkaline Phosphatase 104 U/L (45-117) 01/12/18 07:00 Total Protein 6.6 g/dl (6.4-8.2) 01/12/18 07:00 Albumin 3.5 g/dl (3.4-5.0) 01/12/18 07:00 Urine Color Yellow 01/11/18 14:57 Urine Appearance Clear 01/11/18 14:57 Urine pH 5.0 (5.0-8.0) 01/11/18 14:57 Ur Specific [place] 1.024 (1.001-1.035) 01/11/18 14:57 Urine Protein Negative (NEGATIVE) 01/11/18 14:57 Urine Glucose (UA) Negative (NEGATIVE) 01/11/18 14:57 Urine Ketones Negative (NEGATIVE) 01/11/18 14:57 Urine Blood 2+ (NEGATIVE) H 01/11/18 14:57 Urine Nitrite Negative (NEGATIVE) 01/11/18 14:57 Urine Bilirubin Negative (NEGATIVE) 01/11/18 14:57 Urine Urobilinogen Negative mg/dL (0.2-1.0) 01/11/18 14:57 Ur Leukocyte Esterase Negative (NEGATIVE) 01/11/18 14:57 Urine WBC (Auto) <1 /hpf (3-5) 01/11/18 14:57 Urine RBC (Auto) 8 /hpf (0-3) 01/11/18 14:57 Calcium Oxalate Crystal Rare /hpf (NONE SEEN) 01/11/18 14:57 Urine Mucus Many 01/11/18 14:57 RPR Titer Nonreactive (NONREACTIVE) 01/12/18 07:00 lab noted - Treatment Hospital Course: Detox Protocol Followed, Responded well Patient has Accepted a Rehab Referral to: encourage community support group/ patient agreess to consider - Medication Discharge Medications: Ambulatory Orders Albuterol Sulfate Inhaler - [Ventolin HFA Inhaler -] 2 inh PO Q4H PRN #1 inhaler 01/14/18 - Diagnosis (1) Nicotine dependence Status: Acute Qualifiers: Nicotine product type: cigarettes Substance use status: in withdrawal Qualified Code(s): F17.213 - Nicotine dependence, cigarettes, with withdrawal (2) Opioid dependence with withdrawal Status: Acute (3) Asthma Status: Chronic Qualifiers: Asthma severity: mild Asthma persistence: intermittent Asthma complication type: uncomplicated Qualified Code(s): J45.20 - Mild intermittent asthma, uncomplicated - AMA Did Patient Leave Against Medical Advice: Yes
[2018-01-15] MEDS ORDERED: METHADONE HCL 10 MG TABLET (FOR DETOX USE ONLY) PO ONE (10:00)
[2018-01-16] MEDS ORDERED: METHADONE HCL 5 MG TABLET (FOR DETOX USE ONLY) PO ONE (06:00)
== END 2018-01-14 09:05 | disposition left against medical advice (07) | DRG 770 ==
LOC: YASAS 13:29 → Y6N 17:36
PROVIDERS: ADMIT Internal Medicine; ATTEND Internal Medicine
PROC: HZ2ZZZZ Detoxification Services for Substance Abuse Treatment (ICD-10-PCS; principal; 2018-01-11)
DX: F11.23 Opioid dependence with withdrawal (principal); F12.20 Cannabis dependence, uncomplicated; F17.213 Nicotine dependence, cigarettes, with withdrawal; G47.00 Insomnia, unspecified; J45.20 Mild intermittent asthma, uncomplicated
CPT/HCPCS: 36415; 80053; 81003; 81015; 85027; 86593; 93005; 93010; J0735

== ENCOUNTER 2018-02-08 12:12 | Inpatient (IN) | payer OTHER ==
[2018-02-08 12:58] VITALS: BMI 23.1
--- NOTE | 2018-02-08 17:51 | HP ---
COWS - Scale Resting Pulse: 0= CT 80 or Below Sweatin= Chills/Flushing Restless Observation: 1= Difficult to Sit Still Pupil Size: 1= Pupils >than Normal Bone or Joint Aches: 1= Mild Discomfort Runny Nose/ Eye Tearin= Runny Nose/Eyes GI Upset > 30mins: 0= None Tremor Observation: 0= None Yawning Observation: 1= 1-2x During Session Anxiety or Irritability: 2=Irritable/Anxious Goose Flesh Skin: 3=Piloerection COWS Score: 12 Admission [facility] Chief Complaint: heroin withdrawal symptoms Allergies/Adverse Reactions: Allergies Allergy/AdvReac Type Severity Reaction Status Date / Time shellfish derived Allergy Severe Swelling Verified 02/08/18 17:00 No Known Drug Allergies Allergy Verified 02/08/18 17:00 History of Present Illness: 43 yo male with hx of nicotine, heroin, and marijuana dependence is here seeking detox. PMHX: Asthma, anxiety, insomnia. Denies suicidal / homicidal ideation or suicide attempts. Last detox at [facility] 01/11/18 -01/14/18. Exam Limitations: No Limitations - Ebola screening Have you traveled outside of the country in the last 21 days: No Have you had contact with anyone from an Ebola affected area: No Have you been sick,other than usual withdrawal symptoms: No Do you have a fever: No - Review of Systems Constitutional: Chills, Loss of Appetite, Weakness, Unintentional Wgt. Loss (20 lbs) EENT: reports: No Symptoms Reported Respiratory: reports: No Symptoms reported Cardiac: reports: No Symptoms Reported GI: reports: Poor Appetite, Poor Fluid Intake : reports: No Symptoms Reported Musculoskeletal: reports: Back Pain, Joint Pain Integumentary: reports: No Symptoms Reported Neuro: reports: Weakness Endocrine: reports: Increased Thirst Hematology: reports: No Symptoms Reported Psychiatric: reports: Orientated x3, Anxious Other Systems: Reviewed and Negative Patient History - Patient Medical History Hx Anemia: No Hx Asthma: Yes Hx Chronic Obstructive Pulmonary Disease (COPD): No Hx Cancer: No Hx Cardiac Disorders: No Hx Congestive Heart Failure: No Hx Hypertension: No Hx Hypercholesterolemia: No Hx Pacemaker: No HX Cerebrovascular Accident: No Hx Seizures: No Hx Dementia: No Hx Diabetes: No Hx Gastrointestinal Disorders: No Hx Liver Disease: No Hx Genitourinary Disorders: No Hx Sexually Transmitted Disorders: No Hx Renal Disease (ESRD): No Hx Thyroid Disease: No Hx Human Immunodeficiency Virus (HIV): No (negative, last tested 6 months ago, declines testing today ) Hx Hepatitis C: No (negative) Hx Depression: No Hx Suicide Attempt: No Hx Bipolar Disorder: No Hx Schizophrenia: No - Patient Surgical History Past Surgical History: No Hx Neurologic Surgery: No Hx Cataract Extraction: No Hx Cardiac Surgery: No Hx Lung Surgery: No Hx Breast Surgery: No Hx Breast Biopsy: No Hx Abdominal Surgery: No Hx Appendectomy: No Hx Cholecystectomy: No Hx Genitourinary Surgery: No Hx Section: No Hx Orthopedic Surgery: No Anesthesia Reaction: Yes - PPD History Previous Implant?: Yes Documented Results: Negative w/proof Implanted On Prior [facility] Admission?: Yes Date: 04/10/17 Results: 0 mm PPD to be Administered?: No - Reproductive History Patient is a Female of Child Bearing Age (11 -55 yrs old): No - Smoking Cessation Smoking history: Former smoker Have you smoked in the past 12 months: Yes Aproximately how many cigarettes per day: 6 If you are a former smoker, when did you quit?: 4 days ago Cigars Per Day: 0 Hx Chewing Tobacco Use: No Initiated information on smoking cessation: Yes 'Breaking Loose' booklet given: 02/08/18 - Substance & Tx. History Hx Alcohol Use: No Hx Substance Use: Yes Substance Use Type: Heroin, Marijuana Hx Substance Use Treatment: Yes ([facility] 01/11/18 -01/14/18) - Substances Abused Heroin Route: SNIFFING Frequency: Daily Amount used: 10 BAGS Age of first use: 38 Date of Last Use: 02/08/18 Family Disease History - Family Disease History Family Disease History: Diabetes: Father (HTN,NE, ), Heart Disease: Father, Respiratory: Mother (Asthma) Admission Physical Exam S - Vital Signs Vital Signs: Vital Signs - 24 hr 02/08/18 12:56 Temperature 96.8 F L Pulse Rate 63 Respiratory 20 Rate Blood Pressure 146/95 - Physical General Appearance: Yes: Disheveled, Thin, Anxious HEENTM: Yes: EOMI, Hearing grossly Normal, Normal ENT Inspection, Pharynx Normal Respiratory: Yes: Chest Non-Tender, Lungs Clear, Normal Breath Sounds, No Respiratory Distress, No Accessory Muscle Use Neck: Yes: No masses,lesions,Nodules, Trachea in good position Breast: Yes: Breast Exam Deferred Cardiology: Yes: Regular Rhythm, Regular Rate Abdominal: Yes: Normal Bowel Sounds, Non Tender, Flat, Soft Genitourinary: Yes: Within Normal Limits Back: Yes: Normal Inspection Musculoskeletal: Yes: full range of Motion, Gait Steady, Pelvis Stable, Back pain Extremities: Yes: Normal Capillary Refill, Normal Inspection, Normal Range of Motion, Non-Tender Neurological: Yes: 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 II-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 NML intact, Fully Oriented, Alert, Motor Strength 5/5, Depressed Affect Integumentary: Yes: Normal Color, Warm, Diaphoresis Lymphatic: Yes: Within Normal Limits - Diagnostic (1) Back pain Current Visit: Yes Status: Acute (2) Nicotine dependence Current Visit: Yes Status: Acute Qualifiers: Nicotine product type: cigarettes Substance use status: in withdrawal Qualified Code(s): F17.213 - Nicotine dependence, cigarettes, with withdrawal (3) Opioid dependence with withdrawal Current Visit: Yes Status: Acute (4) Weight decreased Current Visit: Yes Status: Acute (5) Anxiety Current Visit: Yes Status: Acute Cleared for Admission [facility] - Detox or Rehab [facility] Level of Care: Medically Managed Detox Regimen/Protocol: Methadone [facility] Breath Alcohol Content Breath Alcohol Content: 0 Urine Drug Screen - Results Drug Screen Negative: No Urine Drug Screen Results: THC-Marijuana, OPI-Opiates, MTD-Methadone
[2018-02-08] MEDS ORDERED: ACETAMINOPHEN 325 MG TABLET (FP) PO PRN (18:02)
[2018-02-08] MEDS ORDERED: guaiFENesin/D-METHORPHAN HB 10 ML UNIT-DOSE CUPS PO PRN (18:02)
[2018-02-08] MEDS ORDERED: MAGNESIUM CITRATE 300 ML BOTTLE PO PRN (18:02)
[2018-02-08] MEDS ORDERED: METHADONE HCL 10 MG TABLET (FOR DETOX USE ONLY) PO ONE ×2 (18:02→23:00)
[2018-02-08] MEDS ORDERED: MENTHOL/PHENOL 1 EACH UD MM PRN (18:02)
[2018-02-08] MEDS ORDERED: NICOTINE POLACRILEX 2 MG GUM BUC PRN (18:02)
[2018-02-08] MEDS ORDERED: LOPERAMIDE HCL 2 MG CAPSULE PO PRN (18:02)
[2018-02-08] MEDS ORDERED: MAG HYDROX/AL HYDROX/SIMETH 30 ML UNIT-DOSE CUP PO PRN (18:02)
[2018-02-08] MEDS ORDERED: MAGNESIUM HYDROX 2400MG/30ML ORAL SUSPENSION 30 ML CUP PO PRN (18:02)
[2018-02-08] MEDS ORDERED: P-EPHED 60MG/TRIPROLIDI 2.5MG TABLET PO PRN (18:02)
[2018-02-08] MEDS ORDERED: IBUPROFEN 400 MG TABLET (FP) PO PRN (18:02)
[2018-02-08] MEDS ORDERED: ALBUTEROL SO4 0.083% IH SOL 2.5 MG/3 ML VIAL.NEB. NEB PRN (18:04)
[2018-02-08] MEDS ORDERED: ALBUTEROL SO4 18 GM HFA INHALER IH PRN (18:11)
[2018-02-08] MEDS: diazePAM 5 MG TABLET PO PRN (19:47)
[2018-02-08] MEDS ORDERED: MELATONIN 5 MG TABLETS PO PRN (22:00)
[2018-02-08] MEDS: THIAMINE HCL 100 MG TABLET (FP) PO SCH (22:21)
[2018-02-08 23:02] LABS: URINE APPEARANCE CLEAR; URINE BILIRUBIN NEGATIVE (<2.0 mg/dL); URINE BLOOD NEGATIVE (NEGATIVE); URINE COLOR YELLOW; URINE GLUCOSE (UA) NEGATIVE (NEGATIVE); URINE KETONE NEGATIVE (NEGATIVE); URINE LEUK ESTERASE NEGATIVE (NEGATIVE); URINE NITRITE NEGATIVE (NEGATIVE); URINE PROTEIN NEGATIVE (NEGATIVE)
[2018-02-09] MEDS: diazePAM 5 MG TABLET PO PRN ×4 (05:43→23:22)
[2018-02-09] MEDS ORDERED: METHADONE HCL 10 MG TABLET (FOR DETOX USE ONLY) PO ONE (10:00)
--- NOTE | 2018-02-09 10:00 | EKG ---
Test Reason : Blood Pressure : / mmHG Vent. Rate : 055 BPM Atrial Rate : 055 BPM P-R Int : 142 ms QRS Dur : 088 ms QT Int : 442 ms P-R-T Axes : 074 076 060 degrees QTc Int : 422 ms SINUS BRADYCARDIA WITH SINUS ARRHYTHMIA POSSIBLE LEFT ATRIAL ENLARGEMENT WHEN COMPARED WITH ECG OF 11-JAN-2018 18:04, T WAVE AMPLITUDE HAS INCREASED IN LATERAL LEADS Confirmed by SOHAIL FERRER, JUAN ([id number]) on 02/09/2018 10:00:17 AM Referred By: Confirmed By:JUAN SAUCEDA MD
[2018-02-09] MEDS: NICOTINE 14 MG/24 HOURS TOPICAL PATCH TD SCH (10:19)
[2018-02-09] MEDS: PRENATAL VITAMINS W/ FOLIC ACID TABLET (FP) PO SCH (10:19)
[2018-02-09 10:43] LABS: HEMATOCRIT 41.3 % (35.4-49); HEMOGLOBIN 14.1 GM/dL (11.7-16.9); MCH 30.2 pg (25.7-33.7); MCHC 34.1 g/dl (32.0-35.9); MEAN CELL VOLUME 88.7 fl (80-96); MEAN PLT VOLUME 7.8 fl (7.5-11.1); PLATELET COUNT 289 K/MM3 (134-434); RBC 4.65 M/mm3 (4.00-5.60); RDW 13.8 % (11.9-15.9)
[2018-02-09 10:51] LABS: ALBUMIN 3.9 g/dl (3.4-5.0); ANION GAP 8 (8-16); BLOOD UREA NITROGEN 15 mg/dL (7-18); CALCIUM 8.8 mg/dL (8.5-10.1); CHLORIDE 106 mmol/L (98-107); CO2 26 mmol/L (21-32); CREATININE 0.8 mg/dL (0.7-1.3); GLUCOSE,RANDOM 75 mg/dL (74-106); POTASSIUM 4.3 mmol/L (3.5-5.1); SGOT/AST 20 U/L (15-37); SGPT/ALT 23 U/L (12-78); SODIUM 140 mmol/L (136-145)
[2018-02-09 10:53] LABS: ALK PHOS 109 U/L (45-117); BILIRUBIN,TOTAL 0.3 mg/dL (0.2-1.0); TOT PROT 7.4 g/dl (6.4-8.2)
[2018-02-09] MEDS ORDERED: cloNIDine HCL 0.1 MG TABLET PO ONE (12:37)
--- NOTE | 2018-02-09 12:38 | PN ---
BHS COWS - Scale Resting Pulse: 1= [place] 81-100 Sweatin=Flushed/Facial Moisture Restless Observation: 1= Difficult to Sit Still Pupil Size: 0= Normal to Room Light Bone or Joint Aches: 2= Severe Diffuse Aches Runny Nose/ Eye Tearin= None GI Upset > 30mins: 0= None Tremor Observation of Outstretched Hands: 0= None Yawning Observation: 1= 1-2x During Session Anxiety or Irritability: 2=Irritable/Anxious Goose Flesh Skin: 3=Piloerection COWS Score: 12 BHS Progress Note (SOAP) Subjective: Interrupted Sleep, Anxious, Body Aches. Objective: PATIENT A & O X 3, OBSERVED AMBULATING ON UNIT. NO ACUTE DISTRESS. PATIENT DENIES CHEST PAIN. 02/09/18 12:35 Vital Signs Temperature 97.6 F 02/09/18 09:41 Pulse Rate 90 02/09/18 09:41 Respiratory Rate 20 02/09/18 09:41 Blood Pressure 131/87 02/09/18 09:41 O2 Sat by Pulse Oximetry (%) Laboratory Tests 02/08/18 02/09/18 02/09/18 21:02 05:50 05:50 WBC 6.0 RBC 4.65 Hgb 14.1 Hct 41.3 MCV 88.7 MCH 30.2 MCHC 34.1 RDW 13.8 Plt Count 289 MPV 7.8 Sodium 140 Potassium 4.3 Chloride 106 Carbon Dioxide 26 Anion Gap 8 BUN 15 Creatinine 0.8 Creat Clearance w eGFR > 60 Random Glucose 75 Calcium 8.8 Total Bilirubin 0.3 D AST 20 ALT 23 Alkaline Phosphatase 109 Total Protein 7.4 Albumin 3.9 Urine Color Yellow Urine Appearance Clear Urine pH 7.0 D Ur Specific [place] 1.026 Urine Protein Negative Urine Glucose (UA) Negative Urine Ketones Negative Urine Blood Negative Urine Nitrite Negative Urine Bilirubin Negative Urine Urobilinogen 2.0 Ur Leukocyte Esterase Negative RPR Titer 02/09/18 05:50 WBC RBC Hgb Hct MCV MCH MCHC RDW Plt Count MPV Sodium Potassium Chloride Carbon Dioxide Anion Gap BUN Creatinine Creat Clearance w eGFR Random Glucose Calcium Total Bilirubin AST ALT Alkaline Phosphatase Total Protein Albumin Urine Color Urine Appearance Urine pH Ur Specific [place] Urine Protein Urine Glucose (UA) Urine Ketones Urine Blood Urine Nitrite Urine Bilirubin Urine Urobilinogen Ur Leukocyte Esterase RPR Titer Nonreactive LABS NOTED. Assessment: 02/09/18 12:35 WITHDRAWAL SYMPTOMS. Plan: CONTINUE DETOX. CLONIDINE, 0.1 MG PO X 1 FOR ELEVATED BP AND FOR DETOX SYMPTOMS.
--- NOTE | 2018-02-09 17:51 | CONSULT ---
[facility] Psychiatric Consult - Data Date of interview: 02/09/18 Admission source: [facility] Identifying data: Approached patient at bedside.FOUR TIMES.Mr Rogers declines psychiatric interview.Nursing staff is made aware.
[2018-02-09] MEDS: THIAMINE HCL 100 MG TABLET (FP) PO SCH (21:30)
[2018-02-10] MEDS: hydrOXYzine PAMOATE 50 MG CAPSULE (FP) PO PRN (02:09)
[2018-02-10] MEDS ORDERED: TRIMETHOBENZAMIDE HCL 200MG/2ML INJ IM PRN (09:55)
[2018-02-10] MEDS ORDERED: METHADONE HCL 5 MG TABLET (FOR DETOX USE ONLY) PO ONE (10:00)
[2018-02-10] MEDS: NICOTINE 14 MG/24 HOURS TOPICAL PATCH TD SCH (11:41)
[2018-02-10] MEDS: PRENATAL VITAMINS W/ FOLIC ACID TABLET (FP) PO SCH (11:41)
[2018-02-10] MEDS: diazePAM 5 MG TABLET PO PRN (11:42)
--- NOTE | 2018-02-10 12:50 | PN ---
BHS COWS - Scale Resting Pulse: 0= [place] 80 or Below Sweatin= Chills/Flushing Restless Observation: 1= Difficult to Sit Still Pupil Size: 0= Normal to Room Light Bone or Joint Aches: 2= Severe Diffuse Aches Runny Nose/ Eye Tearin= None GI Upset > 30mins: 5=Frequent Vomit/Diarrhea Tremor Observation of Outstretched Hands: 2= Slight Tremor Visible Yawning Observation: 1= 1-2x During Session Anxiety or Irritability: 2=Irritable/Anxious Goose Flesh Skin: 0=Smooth Skin COWS Score: 14 BHS Progress Note (SOAP) Subjective: Vomiting, Sweating, Anxious, Body Aches, Tremors. Objective: PATIENT A & O X 3, OBSERVED AMBULATING ON UNIT. NO ACUTE DISTRESS. 02/10/18 12:47 Vital Signs Temperature 96.2 F L 02/10/18 09:09 Pulse Rate 64 02/10/18 09:09 Respiratory Rate 18 02/10/18 09:09 Blood Pressure 176/104 02/10/18 09:09 O2 Sat by Pulse Oximetry (%) Laboratory Tests 02/08/18 02/09/18 02/09/18 21:02 05:50 05:50 WBC 6.0 RBC 4.65 Hgb 14.1 Hct 41.3 MCV 88.7 MCH 30.2 MCHC 34.1 RDW 13.8 Plt Count 289 MPV 7.8 Sodium 140 Potassium 4.3 Chloride 106 Carbon Dioxide 26 Anion Gap 8 BUN 15 Creatinine 0.8 Creat Clearance w eGFR > 60 Random Glucose 75 Calcium 8.8 Total Bilirubin 0.3 D AST 20 ALT 23 Alkaline Phosphatase 109 Total Protein 7.4 Albumin 3.9 Urine Color Yellow Urine Appearance Clear Urine pH 7.0 D Ur Specific [place] 1.026 Urine Protein Negative Urine Glucose (UA) Negative Urine Ketones Negative Urine Blood Negative Urine Nitrite Negative Urine Bilirubin Negative Urine Urobilinogen 2.0 Ur Leukocyte Esterase Negative RPR Titer 02/09/18 05:50 WBC RBC Hgb Hct MCV MCH MCHC RDW Plt Count MPV Sodium Potassium Chloride Carbon Dioxide Anion Gap BUN Creatinine Creat Clearance w eGFR Random Glucose Calcium Total Bilirubin AST ALT Alkaline Phosphatase Total Protein Albumin Urine Color Urine Appearance Urine pH Ur Specific [place] Urine Protein Urine Glucose (UA) Urine Ketones Urine Blood Urine Nitrite Urine Bilirubin Urine Urobilinogen Ur Leukocyte Esterase RPR Titer Nonreactive LABS NOTED. Assessment: 02/10/18 12:48 WITHDRAWAL SYMPTOMS. Plan: CONTINUE DETOX. PRN TIGAN IM FOR VOMITING. CLONIDINE, 0.1 MG PO BID FOR ELEVATED BP AND FOR SEVERE DETOX SYMPTOMS. PATIENT VOMITED WITHIN SHORT TIME AFTER TAKING AM DOSES OF BOTH METHADONE AND PRN VALIUM. X 1 DOSE OF VALIUM 10 MG ORDERED FOR 13:30 TO HELP COMPENSATE.
[2018-02-10] MEDS ORDERED: diazePAM 5 MG TABLET PO ONE (13:30)
[2018-02-10] MEDS: cloNIDine HCL 0.1 MG TABLET PO SCH (13:40)
[2018-02-10] MEDS: ONDANSETRON *ODT* 4 MG TABLET SL PRN (16:32)
--- NOTE | 2018-02-10 18:59 | PN ---
S Progress Note Note: Provider called to bedside for evaulation of vomiting in patient. Pt had several episodes of vomiting today, denies diarrhea. Medicated with Zofran and Tigan without relief. Pt to be transferred to [facility] ER. VSS. FS 111mg/dl Report given to Dr Jeffrey Chaney aware of plan
[2018-02-11] MEDS: ONDANSETRON *ODT* 4 MG TABLET SL PRN (08:35)
[2018-02-11] MEDS: diazePAM 5 MG TABLET PO PRN (08:36)
[2018-02-11] MEDS ORDERED: METHADONE HCL 5 MG TABLET (FOR DETOX USE ONLY) PO ONE (10:00)
[2018-02-11] MEDS: cloNIDine HCL 0.1 MG TABLET PO SCH ×2 (10:25→23:37)
[2018-02-11] MEDS: PRENATAL VITAMINS W/ FOLIC ACID TABLET (FP) PO SCH (10:26)
[2018-02-11] MEDS: NICOTINE 14 MG/24 HOURS TOPICAL PATCH TD SCH (10:26)
--- NOTE | 2018-02-11 14:18 | PN ---
BHS Progress Note (SOAP) Subjective: Sweating, stomach ache, interrupted sleep. Patient was sent to [facility] yesterday for evaluation of N/V and returned this morning as per patient. Patient stated N/V resolved. Objective: 02/11/18 14:16 Last Vital Signs Temp Pulse Resp BP Pulse Ox 98.7 F 83 18 144/87 02/11/18 13:39 02/11/18 13:39 02/11/18 13:39 02/11/18 13:39 Laboratory Tests 02/08/18 02/09/18 02/09/18 21:02 05:50 05:50 WBC 6.0 RBC 4.65 Hgb 14.1 Hct 41.3 MCV 88.7 MCH 30.2 MCHC 34.1 RDW 13.8 Plt Count 289 MPV 7.8 Sodium 140 Potassium 4.3 Chloride 106 Carbon Dioxide 26 Anion Gap 8 BUN 15 Creatinine 0.8 Creat Clearance w eGFR > 60 POC Glucometer Random Glucose 75 Calcium 8.8 Total Bilirubin 0.3 D AST 20 ALT 23 Alkaline Phosphatase 109 Total Protein 7.4 Albumin 3.9 Urine Color Yellow Urine Appearance Clear Urine pH 7.0 D Ur Specific [place] 1.026 Urine Protein Negative Urine Glucose (UA) Negative Urine Ketones Negative Urine Blood Negative Urine Nitrite Negative Urine Bilirubin Negative Urine Urobilinogen 2.0 Ur Leukocyte Esterase Negative RPR Titer 02/09/18 02/10/18 05:50 18:54 WBC RBC Hgb Hct MCV MCH MCHC RDW Plt Count MPV Sodium Potassium Chloride Carbon Dioxide Anion Gap BUN Creatinine Creat Clearance w eGFR POC Glucometer 111 Random Glucose Calcium Total Bilirubin AST ALT Alkaline Phosphatase Total Protein Albumin Urine Color Urine Appearance Urine pH Ur Specific [place] Urine Protein Urine Glucose (UA) Urine Ketones Urine Blood Urine Nitrite Urine Bilirubin Urine Urobilinogen Ur Leukocyte Esterase RPR Titer Nonreactive Labs noted Assessment: 02/11/18 14:16 Withdrawal symptoms Plan: Continue detox Encouraged to drink lots of water for hydration (water pitcher ordered)
[2018-02-11] MEDS: hydrOXYzine PAMOATE 50 MG CAPSULE (FP) PO PRN (20:14)
[2018-02-11] MEDS: THIAMINE HCL 100 MG TABLET (FP) PO SCH (23:37)
[2018-02-12] MEDS ORDERED: METHADONE HCL 10 MG TABLET (FOR DETOX USE ONLY) PO ONE (10:00)
[2018-02-12] MEDS: PRENATAL VITAMINS W/ FOLIC ACID TABLET (FP) PO SCH (10:10)
[2018-02-12] MEDS: cloNIDine HCL 0.1 MG TABLET PO SCH ×2 (10:11→22:26)
[2018-02-12] MEDS: NICOTINE 14 MG/24 HOURS TOPICAL PATCH TD SCH (10:11)
--- NOTE | 2018-02-12 10:56 | PN ---
BHS Progress Note (SOAP) Subjective: PT REPORTS NO NAUSEA OR VOMITING TODAY. ANXIETY,IRRITABILITY,CHILLS. Objective: 02/12/18 10:53 Vital Signs Temperature 96.7 F L 02/12/18 09:12 Pulse Rate 64 02/12/18 09:12 Respiratory Rate 18 02/12/18 09:12 Blood Pressure 149/93 02/12/18 09:12 O2 Sat by Pulse Oximetry (%) Laboratory Last Values WBC 6.0 K/mm3 (4.0-10.0) 02/09/18 05:50 RBC 4.65 M/mm3 (4.00-5.60) 02/09/18 05:50 Hgb 14.1 GM/dL (11.7-16.9) 02/09/18 05:50 Hct 41.3 % (35.4-49) 02/09/18 05:50 MCV 88.7 fl (80-96) 02/09/18 05:50 MCH 30.2 pg (25.7-33.7) 02/09/18 05:50 MCHC 34.1 g/dl (32.0-35.9) 02/09/18 05:50 RDW 13.8 % (11.9-15.9) 02/09/18 05:50 Plt Count 289 K/MM3 (134-434) 02/09/18 05:50 MPV 7.8 fl (7.5-11.1) 02/09/18 05:50 Sodium 140 mmol/L (136-145) 02/09/18 05:50 Potassium 4.3 mmol/L (3.5-5.1) 02/09/18 05:50 Chloride 106 mmol/L (98-107) 02/09/18 05:50 Carbon Dioxide 26 mmol/L (21-32) 02/09/18 05:50 Anion Gap 8 (8-16) 02/09/18 05:50 BUN 15 mg/dL (7-18) 02/09/18 05:50 Creatinine 0.8 mg/dL (0.7-1.3) 02/09/18 05:50 Creat Clearance w eGFR > 60 (>60) 02/09/18 05:50 POC Glucometer 111 UNITS (80-120) 02/10/18 18:54 Random Glucose 75 mg/dL (74-106) 02/09/18 05:50 Calcium 8.8 mg/dL (8.5-10.1) 02/09/18 05:50 Total Bilirubin 0.3 mg/dL (0.2-1.0) D 02/09/18 05:50 AST 20 U/L (15-37) 02/09/18 05:50 ALT 23 U/L (12-78) 02/09/18 05:50 Alkaline Phosphatase 109 U/L (45-117) 02/09/18 05:50 Total Protein 7.4 g/dl (6.4-8.2) 02/09/18 05:50 Albumin 3.9 g/dl (3.4-5.0) 02/09/18 05:50 Urine Color Yellow 02/08/18 21:02 Urine Appearance Clear 02/08/18 21:02 Urine pH 7.0 (5.0-8.0) D 02/08/18 21:02 Ur Specific [place] 1.026 (1.001-1.035) 02/08/18 21:02 Urine Protein Negative (NEGATIVE) 02/08/18 21:02 Urine Glucose (UA) Negative (NEGATIVE) 02/08/18 21:02 Urine Ketones Negative (NEGATIVE) 02/08/18 21:02 Urine Blood Negative (NEGATIVE) 02/08/18 21:02 Urine Nitrite Negative (NEGATIVE) 02/08/18 21:02 Urine Bilirubin Negative (<2.0 mg/dL) 02/08/18 21:02 Urine Urobilinogen 2.0 mg/dL (0.2-1.0) 02/08/18 21:02 Ur Leukocyte Esterase Negative (NEGATIVE) 02/08/18 21:02 RPR Titer Nonreactive (NONREACTIVE) 02/09/18 05:50 Assessment: 02/12/18 10:55 WITHDRAWAL SX Plan: CONTINUE DETOX
[2018-02-12] MEDS: THIAMINE HCL 100 MG TABLET (FP) PO SCH (22:26)
[2018-02-13] MEDS ORDERED: METHADONE HCL 5 MG TABLET (FOR DETOX USE ONLY) PO ONE (06:00)
[2018-02-13 06:26] VITALS: BP 119/77; PULSE 59; TEMP 97
--- NOTE | 2018-02-13 11:42 | PN ---
BHS Progress Note (SOAP) Subjective: DETOX COMPLETED. ALERT O X 3. NAD. PT STATES HE WANTS TO GO HOME AND REFUSED REHAB BUT HAS AN OPTION TO GO TO OPD AT [facility], [address] [place] [address]. Objective: 02/13/18 11:39 Vital Signs Temperature 97 F L 02/13/18 06:26 Pulse Rate 59 L 02/13/18 06:26 Respiratory Rate 16 02/13/18 06:26 Blood Pressure 119/77 02/13/18 06:26 O2 Sat by Pulse Oximetry (%) Laboratory Tests 02/08/18 02/09/18 02/09/18 21:02 05:50 05:50 WBC 6.0 RBC 4.65 Hgb 14.1 Hct 41.3 MCV 88.7 MCH 30.2 MCHC 34.1 RDW 13.8 Plt Count 289 MPV 7.8 Sodium 140 Potassium 4.3 Chloride 106 Carbon Dioxide 26 Anion Gap 8 BUN 15 Creatinine 0.8 Creat Clearance w eGFR > 60 POC Glucometer Random Glucose 75 Calcium 8.8 Total Bilirubin 0.3 D AST 20 ALT 23 Alkaline Phosphatase 109 Total Protein 7.4 Albumin 3.9 Urine Color Yellow Urine Appearance Clear Urine pH 7.0 D Ur Specific [place] 1.026 Urine Protein Negative Urine Glucose (UA) Negative Urine Ketones Negative Urine Blood Negative Urine Nitrite Negative Urine Bilirubin Negative Urine Urobilinogen 2.0 Ur Leukocyte Esterase Negative RPR Titer 02/09/18 02/10/18 05:50 18:54 WBC RBC Hgb Hct MCV MCH MCHC RDW Plt Count MPV Sodium Potassium Chloride Carbon Dioxide Anion Gap BUN Creatinine Creat Clearance w eGFR POC Glucometer 111 Random Glucose Calcium Total Bilirubin AST ALT Alkaline Phosphatase Total Protein Albumin Urine Color Urine Appearance Urine pH Ur Specific [place] Urine Protein Urine Glucose (UA) Urine Ketones Urine Blood Urine Nitrite Urine Bilirubin Urine Urobilinogen Ur Leukocyte Esterase RPR Titer Nonreactive Assessment: 02/13/18 11:39 MEDICALLY STABLE Plan: D/C PT TODAY.
--- NOTE | 2018-02-13 11:46 | DS ---
[facility] Detox Discharge Summary Admission Date: 02/08/18 Discharge Date: 02/13/18 - History Present History: Opioid Dependence Additional Comments: DETOX COMPLETED. ALERT O X 3. MEDICALLY STABLE. PT REPORTS PCP WITH DR. CARON BIGGS ON [address] [place] [address]. Pertinent Past History: PLEASE SEE DX BELOW - Physical Exam Results Vital Signs: Vital Signs Temperature 97 F L 02/13/18 06:26 Pulse Rate 59 L 02/13/18 06:26 Respiratory Rate 16 02/13/18 06:26 Blood Pressure 119/77 02/13/18 06:26 O2 Sat by Pulse Oximetry (%) Pertinent Admission Physical Exam Findings: WITHDRAWAL SX Laboratory Tests 02/08/18 02/09/18 02/09/18 21:02 05:50 05:50 WBC 6.0 RBC 4.65 Hgb 14.1 Hct 41.3 MCV 88.7 MCH 30.2 MCHC 34.1 RDW 13.8 Plt Count 289 MPV 7.8 Sodium 140 Potassium 4.3 Chloride 106 Carbon Dioxide 26 Anion Gap 8 BUN 15 Creatinine 0.8 Creat Clearance w eGFR > 60 POC Glucometer Random Glucose 75 Calcium 8.8 Total Bilirubin 0.3 D AST 20 ALT 23 Alkaline Phosphatase 109 Total Protein 7.4 Albumin 3.9 Urine Color Yellow Urine Appearance Clear Urine pH 7.0 D Ur Specific [place] 1.026 Urine Protein Negative Urine Glucose (UA) Negative Urine Ketones Negative Urine Blood Negative Urine Nitrite Negative Urine Bilirubin Negative Urine Urobilinogen 2.0 Ur Leukocyte Esterase Negative RPR Titer 02/09/18 02/10/18 05:50 18:54 WBC RBC Hgb Hct MCV MCH MCHC RDW Plt Count MPV Sodium Potassium Chloride Carbon Dioxide Anion Gap BUN Creatinine Creat Clearance w eGFR POC Glucometer 111 Random Glucose Calcium Total Bilirubin AST ALT Alkaline Phosphatase Total Protein Albumin Urine Color Urine Appearance Urine pH Ur Specific [place] Urine Protein Urine Glucose (UA) Urine Ketones Urine Blood Urine Nitrite Urine Bilirubin Urine Urobilinogen Ur Leukocyte Esterase RPR Titer Nonreactive - Treatment Hospital Course: Detox Protocol Followed, Detoxed Safely, Responded well, Discharged Condition Good - Medication Discharge Medications: Ambulatory Orders Albuterol Sulfate Inhaler - [Ventolin HFA Inhaler -] 2 inh PO Q4H PRN #1 inhaler 01/14/18 - Diagnosis (1) Weight decreased Status: Acute (2) Nicotine dependence Status: Acute Qualifiers: Nicotine product type: cigarettes Substance use status: in withdrawal Qualified Code(s): F17.213 - Nicotine dependence, cigarettes, with withdrawal (3) Opioid dependence with withdrawal Status: Acute (4) Asthma Status: Chronic Qualifiers: Asthma severity: mild Asthma persistence: intermittent Asthma complication type: uncomplicated Qualified Code(s): J45.20 - Mild intermittent asthma, uncomplicated - AMA Did Patient Leave Against Medical Advice: No
== END 2018-02-13 08:15 | disposition home or self-care (01) | DRG 773 ==
LOC: YASAS 12:12 → Y3N 17:27
PROVIDERS: ADMIT Internal Medicine; ATTEND Internal Medicine
PROC: HZ2ZZZZ Detoxification Services for Substance Abuse Treatment (ICD-10-PCS; principal; 2018-02-08)
DX: F11.23 Opioid dependence with withdrawal (principal); F12.20 Cannabis dependence, uncomplicated; F17.213 Nicotine dependence, cigarettes, with withdrawal; F41.9 Anxiety disorder, unspecified; J45.20 Mild intermittent asthma, uncomplicated; M54.89 Other dorsalgia; R63.4 Abnormal weight loss; Z68.23 Body mass index [BMI] 23.0-23.9, adult
CPT/HCPCS: 36415; 80053; 81003; 82962; 85027; 86593; 93005; 93010; J0735; Q0162

== ENCOUNTER 2018-02-10 19:32 | Emergency (ER) | payer OTHER ==
[2018-02-10] MEDS ORDERED: ONDANSETRON *ODT* 4 MG TABLET ONE (19:50)
[2018-02-10] MEDS ORDERED: ONDANSETRON *ODT* 4 MG TABLET SL ONE (19:50)
--- NOTE | 2018-02-10 19:50 | PDOC ---
History of Present Illness - General Chief Complaint: Nausea/Vomiting Stated Complaint: NAUSEA, VOMITING Time Seen by Provider: 02/10/18 19:49 - History of Present Illness Initial Comments: 02/10/18 19:49 The patient denies chest pain, shortness of breath, headache and dizziness. Denies fever, chills, nausea, vomit, diarrhea and constipation. Denies dysuria, frequency, urgency and hematuria. Allergies: Past History - Past Medical History Allergies/Adverse Reactions: Allergies Allergy/AdvReac Type Severity Reaction Status Date / Time shellfish derived Allergy Severe Swelling Verified 02/08/18 17:00 No Known Drug Allergies Allergy Verified 02/08/18 17:00 Home Medications: Ambulatory Orders Albuterol Sulfate Inhaler - [Ventolin HFA Inhaler -] 2 inh PO Q4H PRN #1 inhaler 01/14/18 Anemia: No Asthma: Yes Cancer: No Cardiac Disorders: No CVA: No COPD: No CHF: No Dementia: No Diabetes: No GI Disorders: No Disorders: No HTN: No Hypercholesterolemia: No Kidney Stones: No Liver Disease: No Seizures: No Thyroid Disease: No - Surgical History Abdominal Surgery: No Appendectomy: No Cardiac Surgery: No Cholecystectomy: No Lung Surgery: No Neurologic Surgery: No Orthopedic Surgery: No - Reproductive History Testicular Surgery: No - Suicide/Smoking/Psychosocial Hx Smoking Status: Yes Smoking History: Former smoker Have you smoked in the past 12 months: Yes Number of Cigarettes Smoked Daily: 6 If you are a former smoker, when did you quit?: 4 days ago Cigars Per Day: 0 'Breaking Loose' booklet given: 02/08/18 Hx Alcohol Use: No Drug/Substance Use Hx: Yes Substance Use Type: Heroin, Marijuana Hx Substance Use Treatment: Yes ([facility] 01/11/18 -01/14/18) Review of Systems - Review of Systems Comments:: 02/10/18 19:49 GENERAL/CONSTITUTIONAL: No fever or chills. No weakness. HEAD, EYES, EARS, NOSE AND THROAT: No change in vision. No ear pain or discharge. No sore throat. CARDIOVASCULAR: No chest pain or shortness of breath RESPIRATORY: No cough, wheezing, or hemoptysis. GASTROINTESTINAL: No nausea, vomiting, diarrhea or constipation. GENITOURINARY: No dysuria, frequency, or change in urination. MUSCULOSKELETAL: No joint or muscle swelling or pain. No neck or back pain. SKIN: No rash NEUROLOGIC: No headache, vertigo, loss of consciousness, or change in strength/ sensation. ENDOCRINE: No increased thirst. No abnormal weight change HEMATOLOGIC/LYMPHATIC: No anemia, easy bleeding, or history of blood clots. ALLERGIC/IMMUNOLOGIC: No hives or skin allergy. *Physical Exam - Physical Exam Comments: 02/10/18 19:50 GENERAL: Awake, alert, and fully oriented, in no acute distress HEAD: No signs of trauma, normocephalic, atraumatic EYES: PERRLA, EOMI, sclera anicteric, conjunctiva clear ENT: Auricles normal inspection, hearing grossly normal, nares patent, oropharynx clear without exudates. Moist mucosa NECK: Normal ROM, supple, no lymphadenopathy, JVD, or masses LUNGS: No distress, speaks full sentences, clear to auscultation bilaterally HEART: Regular rate and rhythm, normal S1 and S2, no murmurs, rubs or gallops, peripheral pulses normal and equal bilaterally. ABDOMEN: Soft, nontender, normoactive bowel sounds. No guarding, no rebound. No masses EXTREMITIES: Normal inspection, Normal range of motion, no edema. No clubbing or cyanosis. NEUROLOGICAL: Cranial nerves II through XII grossly intact. Normal speech, normal gait, no focal sensorimotor deficits SKIN: Warm, Dry, normal turgor, no rashes or lesions noted. *DC/Admit/Observation/Transfer - Discharge Dispostion Condition at time of disposition: Fair - Referrals Referrals: ON STAFF,NOT [Primary Care Provider] - - Patient Instructions - Post Discharge Activity
[2018-02-10 19:57] VITALS: TEMP 98.6; BMI 23.5
[2018-02-10] MEDS ORDERED: SODIUM CHLORIDE 1,000 ML IV STA (20:11)
--- NOTE | 2018-02-10 20:12 | PDOC ---
History of Present Illness - General Chief Complaint: Nausea/Vomiting Stated Complaint: NAUSEA, VOMITING Time Seen by Provider: 02/10/18 19:49 History Source: Patient, Old Records Exam Limitations: No Limitations - History of Present Illness Initial Comments: 02/10/18 20:06 43-year-old male with past medical history of intranasal heroin use currently in detox who was sent to the emergency department for nausea and vomiting throughout the day today. Patient states he was able to eat breakfast today at approximately 7:30 AM but then began vomiting around 10 AM. Patient states she' s had multiple episodes of nonbilious nonbloody vomitus while in rehabilitation. Patient was given Tigan the rehabilitation prior to presentation to the emergency department. Patient also with diffuse abdominal pain. Patient denies any diarrhea. Patient denies fevers, chills, anxiety, chest pain, dizziness, shortness of breath, headaches, back pain, restlessness. Past History - Past Medical History Allergies/Adverse Reactions: Allergies Allergy/AdvReac Type Severity Reaction Status Date / Time shellfish derived Allergy Severe Swelling Verified 02/10/18 19:57 No Known Drug Allergies Allergy Verified 02/10/18 19:57 Home Medications: Ambulatory Orders Albuterol Sulfate Inhaler - [Ventolin HFA Inhaler -] 2 inh PO Q4H PRN #1 inhaler 01/14/18 Anemia: No Asthma: Yes Cancer: No Cardiac Disorders: No CVA: No COPD: No CHF: No Dementia: No Diabetes: No GI Disorders: No Disorders: No HTN: No Hypercholesterolemia: No Kidney Stones: No Liver Disease: No Seizures: No Thyroid Disease: No - Surgical History Abdominal Surgery: No Appendectomy: No Cardiac Surgery: No Cholecystectomy: No Lung Surgery: No Neurologic Surgery: No Orthopedic Surgery: No - Reproductive History Testicular Surgery: No - Suicide/Smoking/Psychosocial Hx Smoking Status: Yes Smoking History: Current every day smoker Have you smoked in the past 12 months: Yes Number of Cigarettes Smoked Daily: 6 If you are a former smoker, when did you quit?: 4 days ago Cigars Per Day: 0 Information on smoking cessation initiated: No 'Breaking Loose' booklet given: 02/08/18 Hx Alcohol Use: Yes Drug/Substance Use Hx: Yes (Heroin) Substance Use Type: Heroin, Marijuana Hx Substance Use Treatment: Yes ([facility] 01/11/18 -01/14/18) Review of Systems - Review of Systems Able to Perform ROS?: Yes Is the patient limited French proficient: No Constitutional: No: Symptoms Reported HEENTM: No: Symptoms Reported Respiratory: No: Symptoms reported Cardiac (ROS): No: Symptoms Reported ABD/GI: Yes: See HPI : No: Symptoms Reported Musculoskeletal: No: Symptoms Reported Integumentary: No: Symptoms Reported Neurological: No: Symptoms reported Endocrine: No: Symptoms Reported Hematologic/Lymphatic: No: Symptoms Reported *Physical Exam - Vital Signs Last Vital Signs Temp Pulse Resp BP Pulse Ox 98.6 F 76 19 145/95 98 02/10/18 19:47 02/10/18 19:47 02/10/18 19:47 02/10/18 19:47 02/10/18 19:47 - Physical Exam General Appearance: Yes: Appropriately Dressed. No: Apparent Distress HEENT: positive: Normal ENT Inspection Neck: positive: Trachea midline, Supple Respiratory/Chest: positive: Lungs Clear, Normal Breath Sounds. negative: Respiratory Distress, Accessory Muscle Use Cardiovascular: positive: Regular Rhythm, Regular Rate, S1, S2. negative: Edema , Murmur Gastrointestinal/Abdominal: positive: Normal Bowel Sounds, Tender (diffusely), Soft Musculoskeletal: positive: Normal Inspection. negative: CVA Tenderness Extremity: positive: Normal Capillary Refill, Normal Inspection Integumentary: positive: Normal Color, Dry, Warm Neurologic: positive: Alert, Normal Response ED Treatment Course - LABORATORY CBC & Chemistry Diagram: 02/10/18 20:22 02/10/18 20:22 Medical Decision Making - Medical Decision Making 02/10/18 20:08 A/P: 43-year-old male with history of intranasal heroin use sent from rehabilitation for intractable vomiting Patient reports his last heroin use was 2 days ago. Pupils are 4 mm equally round and reactive to light and accommodation. Lungs clear to auscultation bilaterally. RRR. No murmurs, rub or gallop noted. Abdomen diffusely tender Normoactive bowel sounds COWS score of 8 suggesting mild withdrawal Labs, UA, IV fluids, Zofran, Ativan 2 mg now 02/10/18 23:43 CT abdomen and pelvis as read by imaging sales representative publications: No localizing signs for acute pathology. Patient reports nausea has returned. I will give Compazine and Ativan at this time. By mouth trial Discharge back to rehabilitation 02/11/18 00:05 Patient tolerating applesauce without difficulty. I contacted to [facility] spoke with the nurse on the unit who states the patient still has his bed at that facility. I will discharge the patient back to [facility] to continue his rehabilitation treatment. *DC/Admit/Observation/Transfer Diagnosis at time of Disposition: Opioid dependence with withdrawal - Discharge Dispostion Disposition: HOME Condition at time of disposition: Fair Admit: No - Referrals Referrals: ON STAFF,NOT [Non Staff, Medical] - - Patient Instructions Additional Instructions: Finish all care previous to started at the rehabilitation facility. Return to emergency department for any worsening nausea vomiting or abdominal pain. - Post Discharge Activity
[2018-02-10 20:35] LABS: BASO % 0.2 % (0-2.0); HEMATOCRIT 50.1 % (35.4-49); HEMOGLOBIN 16.8 GM/dL (11.7-16.9); LYMPH % 7.7 % (8-40); MCH 29.4 pg (25.7-33.7); MCHC 33.6 g/dl (32.0-35.9); MEAN CELL VOLUME 87.3 fl (80-96); MEAN PLT VOLUME 7.5 fl (7.5-11.1); MONO % 4.4 % (3.8-10.2); NEUT % 87.7 % (42.8-82.8); PLATELET COUNT 366 K/MM3 (134-434); RBC 5.74 M/mm3 (4.00-5.60); RDW 13.8 % (11.9-15.9); WHITE BLOOD COUNT 11.5 K/mm3 (4.0-10.0)
[2018-02-10 20:59] LABS: CALCIUM 9.9 mg/dL (8.5-10.1); CHLORIDE 102 mmol/L (98-107); POTASSIUM 4.5 mmol/L (3.5-5.1); SODIUM 139 mmol/L (136-145)
[2018-02-10 21:02] LABS: ALBUMIN 4.5 g/dl (3.4-5.0); ANION GAP 10 (8-16); BLOOD UREA NITROGEN 17 mg/dL (7-18); CO2 27 mmol/L (21-32); GLUCOSE,RANDOM 111 mg/dL (74-106); LIPASE 115 U/L (73-393)
[2018-02-10 21:05] LABS: ALK PHOS 127 U/L (45-117); BILIRUBIN,TOTAL 0.4 mg/dL (0.2-1.0); CREATININE 1.1 mg/dL (0.7-1.3); SGOT/AST 18 U/L (15-37); SGPT/ALT 25 U/L (12-78); TOT PROT 8.9 g/dl (6.4-8.2)
[2018-02-10] MEDS ORDERED: PROCHLORPERAZINE INJECTION 10 MG/2 ML VIAL IVPB ONE (23:16)
[2018-02-10] MEDS ORDERED: PROCHLORPERAZINE MALEATE 5 MG TABLET ONE (23:31)
[2018-02-10 23:45] VITALS: BP 145/80; PULSE 63
--- NOTE | 2018-02-11 15:31 | EKG ---
Test Reason : Blood Pressure : / mmHG Vent. Rate : 060 BPM Atrial Rate : 060 BPM P-R Int : 134 ms QRS Dur : 096 ms QT Int : 458 ms P-R-T Axes : 067 079 069 degrees QTc Int : 458 ms NORMAL SINUS RHYTHM NORMAL ECG WHEN COMPARED WITH ECG OF 08-FEB-2018 19:54, NO SIGNIFICANT CHANGE WAS FOUND Confirmed by JOHNNIE FAYE MD ([id number]) on 02/11/2018 3:31:23 PM Referred By: Confirmed By:JOHNNIE FAYE MD
== END 2018-02-11 02:32 | disposition home or self-care (01) ==
LOC: SUPCPDRO 19:32 → JER 19:32
PROC: 3E0337Z Introduction of Electrolytic and Water Balance Substance into Peripheral Vein, Percutaneous Approach (ICD-10-PCS; principal; 2018-02-10)
PROC: 3E033NZ Introduction of Analgesics, Hypnotics, Sedatives into Peripheral Vein, Percutaneous Approach (ICD-10-PCS; 2018-02-10)
PROC: 3E033GC Introduction of Other Therapeutic Substance into Peripheral Vein, Percutaneous Approach (ICD-10-PCS; 2018-02-10)
DX: F11.23 Opioid dependence with withdrawal (principal); F17.210 Nicotine dependence, cigarettes, uncomplicated; Z91.013 Allergy to seafood
CPT/HCPCS: 36415; 74177-TC; 80053; 83690; 85025; 93005; 93010; 96361; 96374; 96375; 96376; 99282-25; J7030; Q0162

== ENCOUNTER 2018-09-04 15:34 | Inpatient (IN) | payer OTHER ==
[2018-09-04 17:57] VITALS: BMI 22.6
--- NOTE | 2018-09-04 20:44 | HP ---
"COWS - Scale Resting Pulse: 0= [place] 80 or Below Sweatin=Flushed/Facial Moisture Restless Observation: 3= Extraneous Movement Pupil Size: 2= Moderately Dilated (4 mm) Bone or Joint Aches: 0= None Runny Nose/ Eye Tearin= Runny Nose/Eyes GI Upset > 30mins: 2= Nausea/Diarrhea (Nausea w/ vomiting. No diarrhea) Tremor Observation: 2= Slight Tremor Visible Yawning Observation: 0= None Anxiety or Irritability: 1=Feels Anxious/Irritable Goose Flesh Skin: 0=Smooth Skin COWS Score: 14 CIWA Score - Admission Criteria OASAS Guidelines: Admission for Medically Managed Detox: Requires at least one of the followin. CIWA greater than 12 2. Seizures within the past 24 hours 3. Delirium tremens within the past 24 hours 4. Hallucinations within the past 24 hours 5. Acute intervention needed for co occurring medical disorder 6. Acute intervention needed for co occurring psychiatric disorder 7. Severe withdrawal that cannot be handled at a lower level of care (continued vomiting, continued diarrhea, abnormal vital signs) requiring intravenous medication and/or fluids 8. Admission [facility] Chief Complaint: I am having withdrawal from heroin. Allergies/Adverse Reactions: Allergies Allergy/AdvReac Type Severity Reaction Status Date / Time shellfish derived Allergy Severe Swelling Verified 09/04/18 18:40 No Known Drug Allergies Allergy Verified 09/04/18 18:40 History of Present Illness: Heroin use began at age 33. Marijuana use began at age 13. Nicotine use began at age 33. Denies seizures, blackouts, overdose. Hx: Asthma. Denies other significant PMH/PSH. Search Terms: Derrek Rogers, 01/11/1977 Search Date: 09/04/2018 08:42:24 PM The Drug Utilization Report below displays all of the controlled substance prescriptions, if any, that your patient has filled in the last twelve months. The information displayed on this report is compiled from pharmacy submissions to the Department, and accurately reflects the information as submitted by the pharmacies. This report was requested by: Alyson Herzog | Reference #: [id number] There are no results for the search terms that you entered. Exam Limitations: No Limitations - Ebola screening Have you traveled outside of the country in the last 21 days: No Have you had contact with anyone from an Ebola affected area: No Have you been sick,other than usual withdrawal symptoms: No Do you have a fever: No - Review of Systems Constitutional: Chills, Diaphoresis EENT: reports: Blurred Vision, Nose Congestion Respiratory: reports: No Symptoms reported Cardiac: reports: No Symptoms Reported GI: reports: Nausea (r/t withdrawal), Vomiting (r/t withdrawal) : reports: No Symptoms Reported Musculoskeletal: reports: No Symptoms Reported Integumentary: reports: No Symptoms Reported Neuro: reports: Tremors (r/t withdrawal) Endocrine: reports: Increased Thirst Hematology: reports: No Symptoms Reported Psychiatric: reports: Judgement Intact, Mood/Affect Appropiate, Orientated x3 ( Off by 1 day), Agitated, Anxious Patient History - Patient Medical History Hx Anemia: No Hx Asthma: Yes (pt is on MDI - wheezing 2 days ago) Hx Chronic Obstructive Pulmonary Disease (COPD): No Hx Cancer: No Hx Cardiac Disorders: No Hx Congestive Heart Failure: No Hx Hypertension: No Hx Hypercholesterolemia: No Hx Pacemaker: No HX Cerebrovascular Accident: No Hx Seizures: No Hx Dementia: No Hx Diabetes: No Hx Gastrointestinal Disorders: No Hx Liver Disease: No Hx Genitourinary Disorders: No Hx Sexually Transmitted Disorders: No Hx Renal Disease (ESRD): No Hx Thyroid Disease: No Hx Human Immunodeficiency Virus (HIV): No (negative, last tested 6 months ago, declines testing today ) Hx Hepatitis C: No (negative) Hx Depression: No (Denies thoughts of harming self or others) Hx Suicide Attempt: No Hx Bipolar Disorder: No Hx Schizophrenia: No - Patient Surgical History Past Surgical History: No Hx Neurologic Surgery: No Hx Cataract Extraction: No Hx Cardiac Surgery: No Hx Lung Surgery: No Hx Breast Surgery: No Hx Breast Biopsy: No Hx Abdominal Surgery: No Hx Appendectomy: No Hx Cholecystectomy: No Hx Genitourinary Surgery: No Hx Section: No Hx Orthopedic Surgery: No Anesthesia Reaction: No - PPD History Previous Implant?: Yes Documented Results: Negative w/proof Implanted On Prior [facility] Admission?: Yes Date: 06/06/18 Results: 0 mm PPD to be Administered?: No - Smoking Cessation Smoking history: Current every day smoker Have you smoked in the past 12 months: Yes Aproximately how many cigarettes per day: 5 If you are a former smoker, when did you quit?: 4 days ago Cigars Per Day: 0 Hx Chewing Tobacco Use: No Initiated information on smoking cessation: Yes 'Breaking Loose' booklet given: 09/04/18 - Substance & Tx. History Hx Alcohol Use: No Hx Substance Use: Yes Substance Use Type: Cocaine (States only used once ), Heroin, Marijuana Hx Substance Use Treatment: Yes (detox, rehab ) - Substances Abused Heroin Route: Inhalation Frequency: Daily Amount used: 10-12 bags Age of first use: 33 Date of Last Use: 09/04/18 Marijuana/Hashish Route: Smoking Frequency: Daily Amount used: 2 blunts Age of first use: 13 Date of Last Use: 09/03/18 Family Disease History - Family Disease History Family Disease History: Diabetes: Father (HTN,VT, ), Heart Disease: Father, Respiratory: Mother (Asthma) Admission Physical Exam [facility] - Vital Signs Vital Signs: Vital Signs - 24 hr 09/04/18 17:54 Temperature 97.9 F Pulse Rate 60 Respiratory 18 Rate Blood Pressure 150/91 - Physical General Appearance: Yes: Mild Distress, Tremorous, Irritable, Sweating, Anxious HEENTM: Yes: EOMI, Hearing grossly Normal, Normocephalic, CRISPIN (Pupils 4 mm) Respiratory: Yes: Lungs Clear, Normal Breath Sounds, No Respiratory Distress Neck: Yes: No masses,lesions,Nodules, Supple Breast: Yes: Breast Exam Deferred Cardiology: Yes: Regular Rhythm, Regular Rate Abdominal: Yes: Non Tender, Flat, Increased Bowel Sounds (Hyperactive) Genitourinary: Yes: Within Normal Limits Back: Yes: Normal Inspection Musculoskeletal: Yes: full range of Motion, Gait Steady Extremities: Yes: Normal Capillary Refill, Normal Inspection, Normal Range of Motion, Non-Tender, Tremors (of hands when arms extended) Neurological: Yes: product safety compliance leader II-XII NML intact, Alert, Motor Strength 5/5, Normal Mood /Affect Integumentary: Yes: Normal Color, Dry, Warm Lymphatic: Yes: Within Normal Limits - Diagnostic (1) Cannabis dependence, uncomplicated Current Visit: Yes Status: Chronic (2) Nicotine dependence Current Visit: Yes Status: Chronic Qualifiers: Nicotine product type: cigarettes Substance use status: in withdrawal Qualified Code(s): F17.213 - Nicotine dependence, cigarettes, with withdrawal (3) Opioid dependence with withdrawal Current Visit: Yes Status: Acute (4) Asthma Current Visit: Yes Status: Chronic Qualifiers: Asthma severity: mild Asthma persistence: intermittent Asthma complication type: uncomplicated Qualified Code(s): J45.20 - Mild intermittent asthma, uncomplicated Cleared for Admission [facility] - Detox or Rehab [facility] Level of Care: Medically Managed Detox Regimen/Protocol: Methadone S Breath Alcohol Content Breath Alcohol Content: 0 Urine Drug Screen - Results Drug Screen Negative: No Urine Drug Screen Results: THC-Marijuana, RUBEN-Cocaine, BAR-Barbiturates, OXY- Oxycodone, FEN-Fentanyl"
[2018-09-04] MEDS ORDERED: METHADONE HCL 10 MG TABLET (FOR DETOX USE ONLY) PO ONE ×2 (21:03→23:00)
[2018-09-04] MEDS ORDERED: MAGNESIUM HYDROX 2400MG/30ML ORAL SUSPENSION 30 ML CUP PO PRN (21:03)
[2018-09-04] MEDS ORDERED: hydrOXYzine PAMOATE 50 MG CAPSULE (FP) PO PRN (21:03)
[2018-09-04] MEDS ORDERED: MAG HYDROX/AL HYDROX/SIMETH 30 ML UNIT-DOSE CUP PO PRN (21:03)
[2018-09-04] MEDS ORDERED: LOPERAMIDE HCL 2 MG CAPSULE PO PRN (21:03)
[2018-09-04] MEDS ORDERED: NICOTINE POLACRILEX 2 MG GUM BC PRN (21:03)
[2018-09-04] MEDS ORDERED: guaiFENesin/D-METHORPHAN HB 10 ML UNIT-DOSE CUPS PO PRN (21:03)
[2018-09-04] MEDS ORDERED: ACETAMINOPHEN 325 MG TABLET (FP) PO PRN (21:03)
[2018-09-04] MEDS ORDERED: MAGNESIUM CITRATE 300 ML BOTTLE PO PRN (21:03)
[2018-09-04] MEDS ORDERED: IBUPROFEN 400 MG TABLET (FP) PO PRN (21:03)
[2018-09-04] MEDS ORDERED: ALBUTEROL SO4 8 GM HFA INHALER IH PRN (21:05)
[2018-09-04] MEDS ORDERED: MELATONIN 5 MG TABLETS PO PRN (22:00)
[2018-09-04] MEDS: diazePAM 5 MG TABLET PO PRN (22:38)
[2018-09-04] MEDS: THIAMINE HCL 100 MG TABLET (FP) PO SCH (22:38)
[2018-09-05 00:47] LABS: URINE APPEARANCE SLCLOUDY; URINE BILIRUBIN NEGATIVE (<2.0 mg/dL); URINE COLOR DKYELLOW; URINE GLUCOSE (UA) NEGATIVE (NEGATIVE); URINE KETONE NEGATIVE (NEGATIVE); URINE LEUK ESTERASE NEGATIVE (NEGATIVE); URINE NITRITE NEGATIVE (NEGATIVE); URINE PROTEIN NEGATIVE (NEGATIVE)
[2018-09-05 02:28] LABS: CALCIUM OXALATE CRYSTALS RARE /hpf (NONE SEEN); EPI CELLS RARE /HPF (FEW); URINE HYALINE CAST 10 /lpf; URINE MUCUS MANY
[2018-09-05] MEDS ORDERED: METHADONE HCL 10 MG TABLET (FOR DETOX USE ONLY) PO ONE (10:00)
[2018-09-05 10:05] LABS: HEMATOCRIT 43.5 % (35.4-49); HEMOGLOBIN 14.3 GM/dL (11.7-16.9); MCH 29.4 pg (25.7-33.7); MCHC 32.9 g/dl (32.0-35.9); MEAN CELL VOLUME 89.3 fl (80-96); PLATELET COUNT 218 K/MM3 (134-434); RBC 4.87 M/mm3 (4.00-5.60); RDW 13.6 % (11.9-15.9); WHITE BLOOD COUNT 5.1 K/mm3 (4.0-10.0)
[2018-09-05] MEDS: PRENATAL VITAMINS W/ FOLIC ACID TABLET (FP) PO SCH (10:34)
[2018-09-05] MEDS: diazePAM 5 MG TABLET PO PRN ×2 (10:35→22:34)
--- NOTE | 2018-09-05 11:05 | PN ---
BHS COWS - Scale Resting Pulse: 0= [place] 80 or Below Sweatin=Flushed/Facial Moisture Restless Observation: 1= Difficult to Sit Still Pupil Size: 0= Normal to Room Light Bone or Joint Aches: 1= Mild Discomfort Runny Nose/ Eye Tearin= Runny Nose/Eyes GI Upset > 30mins: 1= Stomach Cramp Tremor Observation of Outstretched Hands: 2= Slight Tremor Visible Yawning Observation: 2= >3x During Session Anxiety or Irritability: 2=Irritable/Anxious Goose Flesh Skin: 0=Smooth Skin COWS Score: 13 BHS Progress Note (SOAP) Subjective: irritable agitation sweats restless body aches Objective: 09/05/18 11:04 Vital Signs Temperature 99.1 F 09/05/18 10:02 Pulse Rate 67 09/05/18 10:02 Respiratory Rate 18 09/05/18 10:02 Blood Pressure 143/84 09/05/18 10:02 O2 Sat by Pulse Oximetry (%) Laboratory Tests 09/04/18 09/05/18 23:16 07:00 WBC 5.1 RBC 4.87 Hgb 14.3 Hct 43.5 MCV 89.3 MCH 29.4 MCHC 32.9 RDW 13.6 Plt Count 218 D MPV 8.0 Urine Color Dkyellow Urine Appearance Slcloudy Urine pH 5.0 Ur Specific [place] 1.029 Urine Protein Negative Urine Glucose (UA) Negative Urine Ketones Negative Urine Blood 1+ H Urine Nitrite Negative Urine Bilirubin Negative Urine Urobilinogen 2.0 Ur Leukocyte Esterase Negative Urine WBC (Auto) 4 Urine RBC (Auto) 16 Ur Epithelial Cells Rare Calcium Oxalate Crystal Rare Hyaline Casts 10 Urine Mucus Many repeat u/a rest of labs pending aaox3 ambulating no acute distress Assessment: 09/05/18 11:05 withdrawal sx Plan: continue detox increase fluids f/u pending labs
[2018-09-05 11:06] LABS: ALBUMIN 3.7 g/dl (3.4-5.0); ALK PHOS 95 U/L (45-117); ANION GAP 10 MMOL/L (8-16); BILIRUBIN,TOTAL 0.9 mg/dL (0.2-1); BLOOD UREA NITROGEN 13 mg/dL (7-18); CALCIUM 8.5 mg/dL (8.5-10.1); CHLORIDE 102 mmol/L (98-107); CO2 28 mmol/L (21-32); CREATININE 0.8 mg/dL (0.55-1.3); GLUCOSE,RANDOM 65 mg/dL (74-106); POTASSIUM 3.8 mmol/L (3.5-5.1); SGOT/AST 15 U/L (15-37); SGPT/ALT 17 U/L (13-61); SODIUM 140 mmol/L (136-145); TOT PROT 6.8 g/dl (6.4-8.2)
--- NOTE | 2018-09-05 11:37 | EKG ---
Test Reason : Blood Pressure : / mmHG Vent. Rate : 057 BPM Atrial Rate : 057 BPM P-R Int : 148 ms QRS Dur : 084 ms QT Int : 414 ms P-R-T Axes : 052 077 049 degrees QTc Int : 402 ms SINUS BRADYCARDIA NONSPECIFIC ST ABNORMALITY ABNORMAL ECG WHEN COMPARED WITH ECG OF 04-JUN-2018 13:31, NO SIGNIFICANT CHANGE WAS FOUND Confirmed by JOHNNIE FAYE MD ([id number]) on 09/05/2018 11:36:52 AM Referred By: Confirmed By:JOHNNIE FAYE MD
[2018-09-05] MEDS: THIAMINE HCL 100 MG TABLET (FP) PO SCH (22:32)
[2018-09-06] MEDS ORDERED: METHADONE HCL 5 MG TABLET (FOR DETOX USE ONLY) PO ONE (10:00)
[2018-09-06] MEDS: diazePAM 5 MG TABLET PO PRN ×2 (10:11→20:16)
[2018-09-06] MEDS: PRENATAL VITAMINS W/ FOLIC ACID TABLET (FP) PO SCH (10:11)
[2018-09-06 10:19] LABS: URINE APPEARANCE CLEAR; URINE BILIRUBIN NEGATIVE (<2.0 mg/dL); URINE COLOR LTYELLOW; URINE GLUCOSE (UA) NEGATIVE (NEGATIVE); URINE KETONE NEGATIVE (NEGATIVE); URINE LEUK ESTERASE NEGATIVE (NEGATIVE); URINE NITRITE NEGATIVE (NEGATIVE); URINE PROTEIN NEGATIVE (NEGATIVE); URINE UROBILINOGEN NEGATIVE mg/dL (0.2-1.0)
--- NOTE | 2018-09-06 10:47 | PN ---
BHS COWS - Scale Resting Pulse: 0= [place] 80 or Below Sweatin=Flushed/Facial Moisture Restless Observation: 1= Difficult to Sit Still Pupil Size: 0= Normal to Room Light Bone or Joint Aches: 1= Mild Discomfort Runny Nose/ Eye Tearin= Nasal Congestion GI Upset > 30mins: 0= None Tremor Observation of Outstretched Hands: 2= Slight Tremor Visible Yawning Observation: 2= >3x During Session Anxiety or Irritability: 2=Irritable/Anxious Goose Flesh Skin: 0=Smooth Skin COWS Score: 11 S Progress Note (SOAP) Subjective: feeling better anxiety interrupted sleep Objective: 09/06/18 10:46 Vital Signs Temperature 97.9 F 09/06/18 09:31 Pulse Rate 50 L 09/06/18 09:31 Respiratory Rate 18 09/06/18 09:31 Blood Pressure 138/77 09/06/18 09:31 O2 Sat by Pulse Oximetry (%) Laboratory Tests 09/04/18 09/05/18 09/05/18 23:16 07:00 07:00 WBC 5.1 RBC 4.87 Hgb 14.3 Hct 43.5 MCV 89.3 MCH 29.4 MCHC 32.9 RDW 13.6 Plt Count 218 D MPV 8.0 Sodium 140 Potassium 3.8 Chloride 102 Carbon Dioxide 28 Anion Gap 10 BUN 13 Creatinine 0.8 Creat Clearance w eGFR > 60 Random Glucose 65 L Calcium 8.5 Total Bilirubin 0.9 AST 15 ALT 17 Alkaline Phosphatase 95 Total Protein 6.8 Albumin 3.7 Urine Color Dkyellow Urine Appearance Slcloudy Urine pH 5.0 Ur Specific [place] 1.029 Urine Protein Negative Urine Glucose (UA) Negative Urine Ketones Negative Urine Blood 1+ H Urine Nitrite Negative Urine Bilirubin Negative Urine Urobilinogen 2.0 Ur Leukocyte Esterase Negative Urine WBC (Auto) 4 Urine RBC (Auto) 16 Ur Epithelial Cells Rare Calcium Oxalate Crystal Rare Hyaline Casts 10 Urine Mucus Many RPR Titer 09/05/18 09/06/18 07:00 07:00 WBC RBC Hgb Hct MCV MCH MCHC RDW Plt Count MPV Sodium Potassium Chloride Carbon Dioxide Anion Gap BUN Creatinine Creat Clearance w eGFR Random Glucose Calcium Total Bilirubin AST ALT Alkaline Phosphatase Total Protein Albumin Urine Color Ltyellow Urine Appearance Clear Urine pH 8.0 D Ur Specific [place] 1.010 Urine Protein Negative Urine Glucose (UA) Negative Urine Ketones Negative Urine Blood Negative Urine Nitrite Negative Urine Bilirubin Negative Urine Urobilinogen Negative Ur Leukocyte Esterase Negative Urine WBC (Auto) Urine RBC (Auto) Ur Epithelial Cells Calcium Oxalate Crystal Hyaline Casts Urine Mucus RPR Titer Nonreactive ambulating no acute distress aaox3 Assessment: 09/06/18 10:47 withdrawal sx Plan: continue detox increase fluids
[2018-09-06] MEDS: THIAMINE HCL 100 MG TABLET (FP) PO SCH (23:06)
[2018-09-07 09:36] VITALS: BP 125/76; PULSE 55; TEMP 98.4
[2018-09-07] MEDS ORDERED: METHADONE HCL 5 MG TABLET (FOR DETOX USE ONLY) PO ONE (10:00)
[2018-09-07] MEDS: PRENATAL VITAMINS W/ FOLIC ACID TABLET (FP) PO SCH (10:24)
[2018-09-07] MEDS: diazePAM 5 MG TABLET PO PRN (10:24)
--- NOTE | 2018-09-07 11:05 | PN ---
S Progress Note Note: pt is refusing to stay to complete detox. pt states he has something to do. he did not elaborate. Pt signed out AMA.
--- NOTE | 2018-09-07 11:12 | DS ---
[facility] Detox Discharge Summary Admission Date: 09/04/18 - History Present History: Cannabis Dependence, Opioid Dependence - Physical Exam Results Vital Signs: Vital Signs Temperature 98.4 F 09/07/18 09:35 Pulse Rate 55 L 09/07/18 09:35 Respiratory Rate 16 09/07/18 09:35 Blood Pressure 125/76 09/07/18 09:35 O2 Sat by Pulse Oximetry (%) - Treatment Hospital Course: Detox Protocol Followed, Responded well, Discharged Condition Good - Medication Discharge Medications: Ambulatory Orders Albuterol Sulfate Inhaler - [Ventolin HFA Inhaler -] 2 inh PO Q4H PRN #1 inhaler 01/14/18 - Diagnosis (1) Opioid dependence with withdrawal Current Visit: Yes Status: Chronic (2) Asthma Current Visit: Yes Status: Chronic Qualifiers: Asthma severity: mild Asthma persistence: intermittent Asthma complication type: uncomplicated Qualified Code(s): J45.20 - Mild intermittent asthma, uncomplicated (3) Cannabis dependence, uncomplicated Current Visit: Yes Status: Chronic (4) Nicotine dependence Current Visit: Yes Status: Chronic Qualifiers: Nicotine product type: cigarettes Substance use status: uncomplicated Qualified Code(s): F17.210 - Nicotine dependence, cigarettes, uncomplicated (5) Back pain Current Visit: No Status: Acute Qualifiers: Back pain location: back pain in unspecified location Chronicity: unspecified Back pain laterality: unspecified Qualified Code(s): M54.9 - Dorsalgia, unspecified (6) Insomnia Current Visit: No Status: Acute (7) Substance-induced anxiety disorder Current Visit: No Status: Acute (8) Substance-induced sleep disorder Current Visit: No Status: Acute (9) Weight decreased Current Visit: No Status: Acute (10) Opioid dependence Current Visit: No Status: Chronic (11) Anxiety Current Visit: No Status: Suspected (12) Depressed affect Current Visit: No Status: Suspected - AMA Did Patient Leave Against Medical Advice: Yes (going home.)
[2018-09-08] MEDS ORDERED: METHADONE HCL 10 MG TABLET (FOR DETOX USE ONLY) PO ONE (10:00)
[2018-09-09] MEDS ORDERED: METHADONE HCL 5 MG TABLET (FOR DETOX USE ONLY) PO ONE (06:00)
== END 2018-09-07 11:55 | disposition left against medical advice (07) | DRG 770 ==
LOC: YASAS 15:34 → Y6N 19:51
PROC: HZ2ZZZZ Detoxification Services for Substance Abuse Treatment (ICD-10-PCS; principal; 2018-09-04)
DX: F11.23 Opioid dependence with withdrawal (principal); F12.20 Cannabis dependence, uncomplicated; F17.210 Nicotine dependence, cigarettes, uncomplicated; F19.280 Other psychoactive substance dependence with psychoactive substance-induced anxiety disorder; F19.282 Other psychoactive substance dependence with psychoactive substance-induced sleep disorder; F41.9 Anxiety disorder, unspecified; R45.89 Other symptoms and signs involving emotional state; G47.00 Insomnia, unspecified; J45.20 Mild intermittent asthma, uncomplicated; M54.9 Dorsalgia, unspecified; R63.4 Abnormal weight loss; Z68.22 Body mass index [BMI] 22.0-22.9, adult
CPT/HCPCS: 36415; 80053; 81003; 81015; 85027; 86593; 93005; 93010

== ENCOUNTER 2020-07-23 09:08 | Inpatient (IN) | payer OTHER ==
--- NOTE | 2020-07-23 09:33 | BHS.RME ---
Substance Use & Tx History - Substance Use History Heroin Substance amount: 5-10 bags Frequency of use: Daily Substance route: Inhalation (ex: sniffing or snorting) Date of Last Use: 07/22/20 (started age 37) Cocaine-Crack Substance amount: $30 Frequency of use: Once a month Substance route: Smoking Date of Last Use: 07/22/20 (started age 13) Nicotine Substance amount: 1 pack Frequency of use: Daily Substance route: Smoking Date of Last Use: 07/23/20 (started age 41) - Last Treatment Date of last treatment: 09/04-09/07/2018 completed Treatment type: Substance Use Disorder (JOSE) Where was last treatment: Detox Physical/Psych/Mental Status - Behavior General Behavior: Increased activity (restlessness, agitation) Eye Contact: Normal - Cooperativeness Cooperativeness: Cooperative - Thinking Thought Processes: Tight, Logical, Goal Directed - Physical Health Problems Is patient presently having any pain?: No Does patient presently have any injuries (include location): No Does patient currently have a fever: No Is patient : No COWS - Scale Resting Pulse: 0= [place] 80 or Below Sweatin= Chills/Flushing Restless Observation: 1= Difficult to Sit Still Pupil Size: 1= Pupils >than Normal Bone or Joint Aches: 2= Severe Diffuse Aches Runny Nose/ Eye Tearin= Runny Nose/Eyes GI Upset > 30mins: 0= None Tremor Observation: 1= Tremor Rector, Not Seen Yawning Observation: 2= >3x During Session Anxiety or Irritability: 2=Irritable/Anxious Goose Flesh Skin: 3=Piloerection COWS Score: 15
[2020-07-23 09:38] VITALS: BMI 22.2
--- NOTE | 2020-07-23 09:42 | HP ---
COWS - Scale Resting Pulse: 0= IN 80 or Below Sweatin= Chills/Flushing Restless Observation: 1= Difficult to Sit Still Pupil Size: 1= Pupils >than Normal Bone or Joint Aches: 2= Severe Diffuse Aches Runny Nose/ Eye Tearin= Runny Nose/Eyes GI Upset > 30mins: 0= None Tremor Observation: 1= Tremor [place], Not Seen Yawning Observation: 2= >3x During Session Anxiety or Irritability: 2=Irritable/Anxious Goose Flesh Skin: 3=Piloerection COWS Score: 15 CIWA Score - Admission Criteria OASAS Guidelines: Admission for Medically Managed Detox: Requires at least one of the followin. CIWA greater than 12 2. Seizures within the past 24 hours 3. Delirium tremens within the past 24 hours 4. Hallucinations within the past 24 hours 5. Acute intervention needed for co occurring medical disorder 6. Acute intervention needed for co occurring psychiatric disorder 7. Severe withdrawal that cannot be handled at a lower level of care (continued vomiting, continued diarrhea, abnormal vital signs) requiring intravenous medication and/or fluids 8. Admitting History and Physical - Admission Chief Complaint: Mr. Rogers is a 45 yo man who presents to [facility] requesting detox admission for heroin and cocaine use disorder. History of Present Illness: Mr. Rogers is a 45 yo man who presents to [facility] requesting detox admission for heroin and cocaine use disorder. PMH: Asthma PSH/Psych/Legal: none SOC: homeless on the streets Substance Use History Heroin Substance amount: 5-10 bags Frequency of use: Daily Substance route: Inhalation (ex: sniffing or snorting) Date of Last Use: 07/22/20 (started age 37) Cocaine-Crack Substance amount: $30 Frequency of use: Once a month Substance route: Smoking Date of Last Use: 07/22/20 (started age 13) Nicotine Substance amount: 1 pack Frequency of use: Daily Substance route: Smoking Date of Last Use: 07/23/20 (started age 41) - Last Treatment Date of last treatment: 09/04-09/07/2018 completed Treatment type: Substance Use Disorder (JOSE) Where was last treatment: Detox History Source: Patient Limitations to Obtaining History: No Limitations - Smoking History Smoking history: Current every day smoker Have you smoked in the past 12 months: Yes Aproximately how many cigarettes per day: 5 If you are a former smoker, when did you quit?: 4 days ago - Alcohol/Substance Use Hx Alcohol Use: No Admission ROS S - HPI Allergies/Adverse Reactions: Allergies Allergy/AdvReac Type Severity Reaction Status Date / Time shellfish derived Allergy Severe Swelling Verified 07/23/20 09:47 No Known Drug Allergies Allergy Verified 07/23/20 09:47 Exam Limitations: No Limitations - Ebola screening Have you traveled outside of the country in the last 21 days: No Have you been sick,other than usual withdrawal symptoms: No Do you have a fever: No - Review of Systems Constitutional: No Symptoms Reported EENT: reports: No Symptoms Reported Respiratory: reports: No Symptoms reported Cardiac: reports: No Symptoms Reported GI: reports: No Symptoms Reported : reports: No Symptoms Reported Musculoskeletal: reports: No Symptoms Reported Integumentary: reports: No Symptoms Reported Neuro: reports: No Symptoms reported Hematology: reports: No Symptoms Reported Psychiatric: reports: Anxious, Depressed (mild, no SI, offered psychiatry eval, pt declined) Patient History - Patient Medical History Hx Anemia: No Hx Asthma: Yes (pt is on MDI - wheezing 2 days ago) Hx Chronic Obstructive Pulmonary Disease (COPD): No Hx Cancer: No Hx Cardiac Disorders: No Hx Congestive Heart Failure: No Hx Hypertension: No Hx Hypercholesterolemia: No Hx Pacemaker: No HX Cerebrovascular Accident: No Hx Seizures: No Hx Dementia: No Hx Diabetes: No Hx Gastrointestinal Disorders: No Hx Liver Disease: No Hx Genitourinary Disorders: No Hx Sexually Transmitted Disorders: No Hx Renal Disease (ESRD): No Hx Thyroid Disease: No Hx Human Immunodeficiency Virus (HIV): No (negative, last tested 6 months ago, declines testing today ) Hx Hepatitis C: No (negative) Hx Depression: No (Denies thoughts of harming self or others) Hx Suicide Attempt: No Hx Bipolar Disorder: No Hx Schizophrenia: No - Patient Surgical History Past Surgical History: No Hx Neurologic Surgery: No Hx Cataract Extraction: No Hx Cardiac Surgery: No Hx Lung Surgery: No Hx Breast Surgery: No Hx Breast Biopsy: No Hx Abdominal Surgery: No Hx Appendectomy: No Hx Cholecystectomy: No Hx Genitourinary Surgery: No Hx Section: No Hx Orthopedic Surgery: No Anesthesia Reaction: No - PPD History Date: 06/06/18 Results: 0 mm - Smoking Cessation Smoking history: Current every day smoker Have you smoked in the past 12 months: Yes Aproximately how many cigarettes per day: 20 If you are a former smoker, when did you quit?: 4 days ago Cigars Per Day: 0 Hx Chewing Tobacco Use: No Initiated information on smoking cessation: Yes 'Breaking Loose' booklet given: 07/23/20 Admission Physical Exam [facility] - Vital Signs Vital Signs: 134/74, HR 73, RR 18, temp 97.6 MARCO 0 UDS: THC, MOP, FEN, RUBEN - Physical General Appearance: Yes: No Apparent Distress, Nourished, Appropriately Dressed HEENTM: Yes: EOMI, Hearing grossly Normal, Normocephalic, Normal Voice Respiratory: Yes: Lungs Clear, No Respiratory Distress, No Accessory Muscle Use Neck: Yes: Within Normal Limits, Supple Breast: Yes: Breast Exam Deferred Cardiology: Yes: Regular Rhythm, Regular Rate Abdominal: Yes: Normal Bowel Sounds, Non Tender, Flat, Soft Genitourinary: Yes: Other (deferred) Back: Yes: Normal Inspection Musculoskeletal: Yes: Gait Steady Extremities: Yes: Normal Inspection, Non-Tender Neurological: Yes: Alert, Normal Response Integumentary: Yes: Normal Color, Dry, Warm, Other (superficial abrasions around both ankles, pt attributes to ill fitting boots) - Diagnostic (1) Cocaine dependence Current Visit: Yes Status: Acute Qualifiers: Substance use status: uncomplicated Qualified Code(s): F14.20 - Cocaine dependence, uncomplicated (2) Asthma Current Visit: No Status: Chronic Qualifiers: Asthma severity: mild Asthma persistence: intermittent Asthma complication type: uncomplicated Qualified Code(s): J45.20 - Mild intermittent asthma, uncomplicated (3) Nicotine dependence Current Visit: Yes Status: Acute Qualifiers: Nicotine product type: cigarettes Substance use status: uncomplicated Qualified Code(s): F17.210 - Nicotine dependence, cigarettes, uncomplicated (4) Opioid dependence with withdrawal Current Visit: Yes Status: Acute Cleared for Admission [facility] - Detox or Rehab [facility] Level of Care: Medically Managed Detox Regimen/Protocol: Methadone Urine Drug Screen - Test Device Lot number: [id number] Expiration date: 01/28/22 - Control Is test valid?: No - Results Drug screen NEGATIVE: No Urine drug screen results: THC-Marijuana, RUBEN-Cocaine, FEN-Fentanyl, MOP-Opiates Inpatient Rehab Admission - Rehab Decision to Admit Inpatient rehab admission?: No
[2020-07-23] MEDS ORDERED: IBUPROFEN 400 MG TABLET (FP) PO PRN (09:45)
[2020-07-23] MEDS ORDERED: METHADONE HCL 10 MG TABLET (FOR DETOX USE ONLY) PO ONE (09:45)
[2020-07-23] MEDS ORDERED: MAG HYDROX/AL HYDROX/SIMETH 30 ML UNIT-DOSE CUP PO PRN (09:45)
[2020-07-23] MEDS ORDERED: MAGNESIUM HYDROX 2400MG/30ML ORAL SUSPENSION 30 ML CUP PO PRN (09:45)
[2020-07-23] MEDS ORDERED: NICOTINE POLACRILEX 2 MG GUM BUC PRN (09:45)
[2020-07-23] MEDS ORDERED: MENTHOL/PHENOL 1 EACH UD MM PRN (09:45)
[2020-07-23] MEDS ORDERED: METHOCARBAMOL 500 MG TABLET PO PRN (09:45)
[2020-07-23] MEDS ORDERED: MAGNESIUM CITRATE 300 ML BOTTLE PO PRN (09:45)
[2020-07-23] MEDS ORDERED: BISMUTH SUBSALICYLATE 262 MG/15 ML BTL PO PRN (09:45)
[2020-07-23] MEDS ORDERED: ACETAMINOPHEN 325 MG TABLET (FP) PO PRN ×2 (09:45)
[2020-07-23] MEDS ORDERED: ONDANSETRON *ODT* 4 MG TABLET SL PRN (09:45)
--- OUTSIDE RECORDS SUMMARY | 2020-07-23 09:53 | XMS ---
:1975 Author Organization [facility] Care Team Providers Name Role Phone [facility], MHAW9 Unavailable Unavailable ED STAFF PHYSICIAN, STAFF Unavailable Unavailable ED STAFF EMMANUEL BROWN Unavailable Unavailable Re-disclosure Warning The records that you are about to access may contain information from federally- assisted alcohol or drug abuse programs. If such information is present, then the following federally mandated warning applies: This information has been disclosed to you from records protected by federal confidentiality rules (42 CFR part 2). The federal rules prohibit you from making any further disclosure of this information unless further disclosure is expressly permitted by the written consent of the person to whom it pertains or as otherwise permitted by 42 CFR part 2. A general authorization for the release of medical or other information is NOT sufficient for this purpose. The Federal rules restrict any use of the information to criminally investigate or prosecute any alcohol or drug abuse patient.The records that you are about to access may contain highly sensitive health information, the redisclosure of which is protected by Article 27-F of the [facility] Public Health law. If you continue you may haveaccess to information: Regarding HIV / AIDS; Provided by facilities licensed or operated by the [facility] Office of Mental Health; or Provided by the [facility] Office for People With Developmental Disabilities. If such information is present, then the following [facility] mandated warning applies: This information has been disclosed to you from confidential records which are protected by state law. State law prohibits you from making any further disclosure of this information without the specific written consent of the person to whom it pertains, or as otherwise permitted by law. Any unauthorized further disclosure in violation of state law may result in a fine or penitentiary sentence or both. A general authorization for the release of medical or other information is NOT sufficient authorization for further disclosure. Encounters Encounter Providers Location Date Indications Data Source(s ) Outpatient Attender: [id number] 12/10/2019 [facility] 01[facility]44[facility] [facility] Patient admitted. Emergency Attender: EMMAUNEL ED STAFF H 11/20/2019 10:53:00 AM [facility] PHYSICIANAttender: STAFF ED EST - 11/20/2019 [facility] STAFF PHYSICIANAdmitter: EMMANUEL 05:11:00 PM [facility] ED STAFF PHYSICIAN Patient discharged. Insurance Providers Payer name Policy type Policy ID Covered Covered constitution party's Policy P gerardo / Coverage constitution party ID relationship to English Inf ormation type english SELF PAY SP INSURANCE BRISA W [id number] BRISA [id number] SP [id number] HEALTH NON CAP Problems, Conditions, and Diagnoses Code Display Name Description Problem Type Effective Data Sour ce(s) Dates Z72.0 Tobacco use TOBACCO USE Diagnosis 11/20/2019 [facility] 10:53:00 AM Medical Cente r EST K57.30 Diverticulosis of DVRTCLOS OF LG Diagnosis 11/20/2019 [facility] large intestine INT W/O 10:53:00 AM Medical Center without perforation PERFORATION OR EST or abscess without ABSCESS W/O bleeding BLEEDING R10.9 Unspecified UNSPECIFIED Diagnosis 11/20/2019 [facility] abdominal pain ABDOMINAL PAIN 10:53:00 AM [facility] EST 257.9 UNSPECIFIED Testicular Diagnosis 12/25/2018 [facility] (Lor nt TESTICULAR Dysfunct NOS 10:12:05 AM Carl DYSFUNCTION EST [facility]) Results ID Date Data Source Liver 11/20/2019 12:46:00 PM EST [facility] Profile.[id number] Name Value Range Interpretation Description Data Sup porting Code Source(s) Document(s ) Alkaline 38-126 <content [facility] phosphatase styleCode="Bold"> Jenifer [Enzymatic Alkaline Medical activity/volume] Phosphatase (ALP) Cente r in Serum or Plasma </content>109 IU/L<content styleCode="Italic s"> (38-126 IU/L)</content> Bilirubin.total 0.2-1.3 <content [facility] [Mass/volume] in styleCode="Bold"> Blas hs Serum or Plasma Bilirubin Total Medical </content>0.8 Center MG/DL<content styleCode="Italic s"> (0.2-1.3 MG/DL)</content> Aspartate 17-59 <content [facility] aminotransferase styleCode="Bold"> Blas hs [Enzymatic Aspartate Medical activity/volume] Aminotransferase Center in Serum or Plasma (AST) </content>47 IU/L<content styleCode="Italic s"> (17-59 IU/L)</content> Alanine 7-50 <content [facility] aminotransferase styleCode="Bold"> Blas hs [Enzymatic Alanine Medical activity/volume] Aminotransferase Center in Serum or Plasma (ALT) </content>34 IU/L<content styleCode="Italic s"> (7-50 IU/L)</content> Albumin 3.5-5.0 <content [facility] [Mass/volume] in styleCode="Bold"> Blas hs Serum or Plasma Albumin Medical </content>4.5 Center G/DL<content styleCode="Italic s"> (3.5-5.0 G/DL)</content> UNK 0.0-0.3 <content Saint styleCode="Bold"> Psychiatric Bilirubin, Direct Medical </content>< 0.2 Center MG/DL<content styleCode="Italic s"> (0.0-0.3 MG/DL)</content> ID Date Data Source HematologyRou.[id number] 11/20/2019 12:46:00 PM EST [facility] 0500 Name Value Range Interpretation Description Data Sup porting Code Source(s) Document(s ) Erythrocytes 4.4-5.9 <content Saint [#/volume] in styleCode="Bold Psychiatric Blood by ">Red Blood Medical Automated count Cell Count Center </content>5.07 MCUMM<content styleCode="Ital ics"> (4.4-5.9 MCUMM)</content > Hematocrit 41.0-53. <content [facility] [Volume 0 styleCode="Bold Jenifer Fraction] of ">Hematocrit Medical Blood by </content>45.4 Center Automated count %<content styleCode="Ital ics"> (41.0-53.0 %)</content> Leukocytes 4.4-11.0 Above high <content Saint [#/volume] in normal styleCode="Bold Jenifer Blood by ">White Blood Medical Automated count Cell Count Center </content>11.32 KCUMM H<content styleCode="Ital ics"> (4.4-11.0 KCUMM)</content > Hemoglobin 13.5-17. <content [facility] [Mass/volume] in 5 styleCode="Bold Jenifer Blood ">Hemoglobin Medical </content>15.1 Center G/DL<content styleCode="Ital ics"> (13.5-17.5 G/DL)</content> Erythrocyte 11.5-14. <content [facility] distribution 5 styleCode="Bold Jenifer width [Ratio] by ">Red Cell Medical Automated count Distribution Center Width </content>13.7 %<content styleCode="Ital ics"> (11.5-14.5 %)</content> Erythrocyte mean 26.0-34. <content [facility] corpuscular 0 styleCode="Bold Jenifer hemoglobin ">Mean Medical [Entitic mass] Corposcular Center by Automated Hemoglobin count </content>29.8 PG<content styleCode="Ital ics"> (26.0-34.0 PG)</content> Erythrocyte mean 80.0-100 <content [facility] corpuscular .0 styleCode="Bold Jenifer volume [Entitic ">Mean Medical volume] by Corpuscular Center Automated count Volume </content>89.5 FL<content styleCode="Ital ics"> (80.0-100.0 FL)</content> Platelet mean 8.0-11.0 <content [facility] volume [Entitic styleCode="Bold Jenifer volume] in Blood ">Mean Platelet Medical by Automated Volume Center count </content>8.8 FL<content styleCode="Ital ics"> (8.0-11.0 FL)</content> Erythrocyte mean 32.0-37. <content [facility] corpuscular 0 styleCode="Bold Jenifer hemoglobin ">Mean Corpus. Medical concentration Hgb Center [Mass/volume] by Concentration Automated count (MCHC) </content>33.3 G/DL<content styleCode="Ital ics"> (32.0-37.0 G/DL)</content> Platelets 130-400 <content [facility] [#/volume] in styleCode="Bold Jenifer Blood by ">Platelet Medical Automated count Count Center </content>284 KCUMM<content styleCode="Ital ics"> (130-400 KCUMM)</content > UNK 0.0 <content Saint styleCode="Bold Jenifer ">Nucleated Red Medical Blood Cell Center Count </content>0.00 KCUMM<content styleCode="Ital ics"> (0.0 KCUMM)</content > UNK 0 <content Saint styleCode="Bold Jenifer ">Nucleated Red Medical Blood Cell Center </content>0.0 /100<content styleCode="Ital ics"> (0 /100)</content> ID Date Data Source GFR(Creatinine).[id number] 11/20/2019 12:46:00 PM [facility] 0-0500 Name Value Range Interpretation Code Description Data Jenny rce(s) Supporting Document(s ) UNK > 60 <content [facility] styleCode="Bold"> Medical Cent er EGFR </content>111 GFR<content styleCode="Italic s"> (> 60 GFR)</content> ID Date Data Source CHMROUTINECCDA.[id number] 11/20/2019 12:46:00 PM [facility] -0500 Name Value Range Interpretation Description Data Sup porting Code Source(s) Document(s ) UNK 30-110 <content [facility] styleCode="Bold Medical ">Amylase Center </content>85 IU/L<content styleCode="Ital ics"> (30-110 IU/L)</content> Lipase 23-300 <content [facility] [Enzymatic styleCode="Bold Medical activity/vo ">Lipase Center lume] in </content>70 Serum or IU/L<content Plasma styleCode="Ital ics"> (23-300 IU/L)</content> ID Date Data Source [facility].[id number] 11/20/2019 12:46:00 PM EST [facility] Center Name Value Range Interpretation Description Data Sup porting Code Source(s) Document(s ) Sodium 137-145 <content [facility] [Moles/volume] in styleCode="Bold"> Yahir phs Serum or Plasma Sodium Medical </content>139 Center MEQ/L<content styleCode="Italic s"> (137-145 MEQ/L)</content> Potassium 3.5-5.3 <content [facility] [Moles/volume] in styleCode="Bold"> Yahir phs Serum or Plasma Potassium Medical </content>4.5 Center MEQ/L<content styleCode="Italic s"> (3.5-5.3 MEQ/L)</content> Chloride 98-107 <content [facility] [Moles/volume] in styleCode="Bold"> Yah[facility] Serum or Plasma Chloride Medical </content>103 Center MEQ/L<content styleCode="Italic s"> (98-107 MEQ/L)</content> Glucose 74-106 Above high <content [facility] [Mass/volume] in normal styleCode="Bold"> Blas hs Serum or Plasma Glucose Medical </content>114 Center MG/DL H<content styleCode="Italic s"> (74-106 MG/DL)</content> Calcium 8.4-10. <content [facility] [Mass/volume] in 2 styleCode="Bold"> Blas hs Serum or Plasma Calcium Medical </content>9.6 Center MG/DL<content styleCode="Italic s"> (8.4-10.2 MG/DL)</content> Creatinine 0.5-1.3 <content [facility] [Mass/volume] in styleCode="Bold"> Blas hs Serum or Plasma Creatinine Medical </content>0.8 Center MG/DL<content styleCode="Italic s"> (0.5-1.3 MG/DL)</content> Carbon dioxide, 22-30 <content [facility] total styleCode="Bold"> Jenifer [Moles/volume] in Carbon Dioxide Medical Serum or Plasma </content>26 Center MEQ/L<content styleCode="Italic s"> (22-30 MEQ/L)</content> UNK 9-20 Above high <content [facility] normal styleCode="Bold"> Jenifer BUN </content>22 Medical MG/DL H<content Center styleCode="Italic s"> (9-20 MG/DL)</content> Aspartate 17-59 <content [facility] aminotransferase styleCode="Bold"> Blas hs [Enzymatic Aspartate Medical activity/volume] Aminotransferase Center in Serum or Plasma (AST) </content>47 IU/L<content styleCode="Italic s"> (17-59 IU/L)</content> UNK > 60 <content [facility] styleCode="Bold"> Jenifer EGFR Medical </content>111 Center GFR<content styleCode="Italic s"> (> 60 GFR)</content> Alanine 7-50 <content [facility] aminotransferase styleCode="Bold"> Blas hs [Enzymatic Alanine Medical activity/volume] Aminotransferase Center in Serum or Plasma (ALT) </content>34 IU/L<content styleCode="Italic s"> (7-50 IU/L)</content> Bilirubin.total 0.2-1.3 <content [facility] [Mass/volume] in styleCode="Bold"> Blas hs Serum or Plasma Bilirubin Total Medical </content>0.8 Center MG/DL<content styleCode="Italic s"> (0.2-1.3 MG/DL)</content> Alkaline 38-126 <content [facility] phosphatase styleCode="Bold"> Jenifer [Enzymatic Alkaline Medical activity/volume] Phosphatase (ALP) Cente r in Serum or Plasma </content>109 IU/L<content styleCode="Italic s"> (38-126 IU/L)</content> Albumin 3.5-5.0 <content [facility] [Mass/volume] in styleCode="Bold"> Blas hs Serum or Plasma Albumin Medical </content>4.5 Center G/DL<content styleCode="Italic s"> (3.5-5.0 G/DL)</content> Procedure Social History Code Duration Value Status Description Data Source(s ) Smoking 11/20/2019 11:45:00 Daily Smoker completed Daily Smoker S [facility] Smoking 11/20/2019 11:30:00 Daily Smoker completed Daily Smoker S [facility] Smoking 11/20/2019 10:57:00 Daily Smoker completed Daily Smoker S [facility] Vital Signs ID Date Data Source UNK Name Value Range Interpretation Code Description Data Source(s) Body temperature 37.804059 37.359557 [facility] Respiratory rate 19 /min 19 /min [facility] Heart rate 70 /min 70 /min [facility] Diastolic blood 68 mm[Hg] 68 mm[Hg] [facility] Systolic blood 124 mm[Hg] 124 mm[Hg] [facility] Body temperature 37.090819 37.396012 [facility] Respiratory rate 18 /min 18 /min [facility] Oxygen saturation 97 % 97 % [facility] blood [facility] by Pulse oximetry Heart rate 80 /min 80 /min [facility] Diastolic blood 82 mm[Hg] 82 mm[Hg] [facility] Systolic blood 147 mm[Hg] 147 mm[Hg] [facility] Body temperature 36.669194 36.944383 [facility] Respiratory rate 18 /min 18 /min [facility] Oxygen saturation 98 % 98 % [facility] blood [facility] by Pulse oximetry Heart rate 80 /min 80 /min [facility] Diastolic blood 80 mm[Hg] 80 mm[Hg] [facility] Systolic blood 154 mm[Hg] 154 mm[Hg] [facility] Body weight 80.905494 kg 80.068835 kg [facility] Body temperature 36.733087 36.234095 [facility] Respiratory rate 19 /min 19 /min [facility] Oxygen saturation 97 % 97 % [facility] blood [facility] by Pulse oximetry Heart rate 98 /min 98 /min [facility] Body height 167.242846 167.859140 cm [facility] Center Diastolic blood 84 mm[Hg] 84 mm[Hg] [facility] pressure [facility] Center Systolic blood 164 mm[Hg] 164 mm[Hg] [facility] pressure [facility] Center Body mass index 28.4 kg/m2 28.4 kg/m2 [facility] (BMI) [Ratio] Medical [facility] ter
[2020-07-23] MEDS ORDERED: ALBUTEROL SO4 HFA INHALER IH PRN (10:03)
[2020-07-23] MEDS: PRENATAL VITAMINS W/ FOLIC ACID TABLET (FP) PO SCH (11:21)
[2020-07-23] MEDS: NICOTINE 21 MG/24 HOURS TOPICAL PATCH TD SCH (11:21)
[2020-07-23] MEDS: hydrOXYzine PAMOATE 25 MG CAPSULE (FP) PO SCH ×4 (11:21→22:23)
--- NOTE | 2020-07-23 14:01 | EKG ---
Test Reason : Blood Pressure : / mmHG Vent. Rate : 062 BPM Atrial Rate : 062 BPM P-R Int : 124 ms QRS Dur : 082 ms QT Int : 438 ms P-R-T Axes : 053 076 044 degrees QTc Int : 444 ms NORMAL SINUS RHYTHM NORMAL ECG WHEN COMPARED WITH ECG OF 04-SEP-2018 22:26, NO SIGNIFICANT CHANGE WAS FOUND Confirmed by JOSE LEE MD ([id number]) on 07/23/2020 2:00:48 PM Referred By: Confirmed By:JOSE LEE MD
[2020-07-23 14:56] LABS: HEMATOCRIT 37.4 % (35.4-49); HEMOGLOBIN 12.5 GM/dL (11.7-16.9); MCHC 33.5 g/dl (32.0-35.9); MEAN CELL VOLUME 89.7 fl (80-96); MEAN PLT VOLUME 7.7 fl (7.5-11.1); PLATELET COUNT 302 K/MM3 (134-434); RBC 4.17 M/mm3 (4.00-5.60); RDW 14.1 % (11.9-15.9)
[2020-07-23 15:07] LABS: ALBUMIN 3.4 g/dl (3.4-5.0); BILIRUBIN,TOTAL 0.5 mg/dL (0.2-1); BLOOD UREA NITROGEN 22.1 mg/dL (7-18); CALCIUM 8.4 mg/dL (8.5-10.1); POTASSIUM 4.5 mmol/L (3.5-5.1); TOT PROT 6.7 g/dl (6.4-8.2)
[2020-07-23] MEDS: cloNIDine HCL 0.1 MG TABLET PO PRN (18:04)
[2020-07-23] MEDS: THIAMINE HCL 100 MG TABLET (FP) PO SCH (22:23)
[2020-07-23] MEDS: MELATONIN 5 MG TABLETS PO SCH (22:23)
[2020-07-24] MEDS: hydrOXYzine PAMOATE 25 MG CAPSULE (FP) PO SCH ×5 (06:41→22:00)
[2020-07-24] MEDS ORDERED: METHADONE HCL 5 MG TABLET (FOR DETOX USE ONLY) ONE (08:55)
[2020-07-24] MEDS ORDERED: METHADONE HCL 10 MG TABLET (FOR DETOX USE ONLY) ONE (08:55)
[2020-07-24] MEDS: PRENATAL VITAMINS W/ FOLIC ACID TABLET (FP) PO SCH (09:20)
[2020-07-24] MEDS: NICOTINE 21 MG/24 HOURS TOPICAL PATCH TD SCH (09:20)
--- NOTE | 2020-07-24 09:44 | PN ---
[facility] COWS - Scale Resting Pulse: 0= [place] 80 or Below Sweatin= Chills/Flushing Restless Observation: 1= Difficult to Sit Still Pupil Size: 0= Normal to Room Light Bone or Joint Aches: 2= Severe Diffuse Aches Runny Nose/ Eye Tearin= None GI Upset > 30mins: 0= None Tremor Observation of Outstretched Hands: 2= Slight Tremor Visible Yawning Observation: 2= >3x During Session Anxiety or Irritability: 2=Irritable/Anxious Goose Flesh Skin: 0=Smooth Skin COWS Score: 10 BHS Progress Note (SOAP) Subjective: c/o chills, body aches, headache, shakes, and anxiety. Objective: 07/24/20 09:42 Vital Signs 07/24/20 07/24/20 05:19 08:35 Temperature 97.5 F L 97.8 F Pulse Rate 47 L 62 Respiratory 16 18 Rate Blood Pressure 127/78 149/86 O2 Sat by Pulse 97 97 Oximetry (%) Laboratory Last Values WBC 6.0 K/mm3 (4.0-10.0) 07/23/20 10:05 RBC 4.17 M/mm3 (4.00-5.60) 07/23/20 10:05 Hgb 12.5 GM/dL (11.7-16.9) 07/23/20 10:05 Hct 37.4 % (35.4-49) 07/23/20 10:05 MCV 89.7 fl (80-96) 07/23/20 10:05 MCH 30.0 pg (25.7-33.7) 07/23/20 10:05 MCHC 33.5 g/dl (32.0-35.9) 07/23/20 10:05 RDW 14.1 % (11.9-15.9) 07/23/20 10:05 Plt Count 302 K/MM3 (134-434) D 07/23/20 10:05 MPV 7.7 fl (7.5-11.1) 07/23/20 10:05 Sodium 141 mmol/L (136-145) 07/23/20 10:05 Potassium 4.5 mmol/L (3.5-5.1) 07/23/20 10:05 Chloride 109 mmol/L (98-107) H 07/23/20 10:05 Carbon Dioxide 29 mmol/L (21-32) 07/23/20 10:05 Anion Gap 4 MMOL/L (8-16) L 07/23/20 10:05 BUN 22.1 mg/dL (7-18) H 07/23/20 10:05 Creatinine 1.0 mg/dL (0.55-1.3) 07/23/20 10:05 Est GFR (CKD-EPI)AfAm 103.42 07/23/20 10:05 Est GFR (CKD-EPI)NonAf 89.23 07/23/20 10:05 Random Glucose 108 mg/dL (74-106) H 07/23/20 10:05 Calcium 8.4 mg/dL (8.5-10.1) L 07/23/20 10:05 Total Bilirubin 0.5 mg/dL (0.2-1) 07/23/20 10:05 AST 22 U/L (15-37) 07/23/20 10:05 ALT 21 U/L (13-61) 07/23/20 10:05 Alkaline Phosphatase 102 U/L (45-117) 07/23/20 10:05 Total Protein 6.7 g/dl (6.4-8.2) 07/23/20 10:05 Albumin 3.4 g/dl (3.4-5.0) 07/23/20 10:05 Syphilis Serology Non-reactive (NONREACTIVE) 07/23/20 10:05 Labs noted. Assessment: 07/24/20 09:43 AOX3, in no acute respiratory distress. Full ROM, ambulating in the unit. Withdrawal symptoms. Plan: continue detox.
[2020-07-24] MEDS ORDERED: METHADONE (DETOX) 20 MG, METHADONE (DETOX) 5 MG PO ONE (10:00)
[2020-07-24] MEDS: cloNIDine HCL 0.1 MG TABLET PO PRN ×2 (18:03→22:01)
[2020-07-24] MEDS: THIAMINE HCL 100 MG TABLET (FP) PO SCH (22:00)
[2020-07-24] MEDS: MELATONIN 5 MG TABLETS PO SCH (22:00)
[2020-07-25] MEDS: hydrOXYzine PAMOATE 25 MG CAPSULE (FP) PO SCH (05:19)
[2020-07-25] MEDS ORDERED: METHADONE HCL 10 MG TABLET (FOR DETOX USE ONLY) PO ONE (10:00)
[2020-07-25 10:35] VITALS: BP 134/85; PULSE 54; TEMP 97.3
--- NOTE | 2020-07-25 11:27 | DS ---
[facility] Detox Discharge Summary Admission Date: 07/23/20 Discharge Date: 07/25/20 (Pt left AMA) - History Present History: Cocaine Dependence, Opioid Dependence Additional Comments: Pt left AMA. Pt did not complete the detox protocol. Pt states, "I just want to leave". An attempt to let pt stay and complete the detox protocol failed. Pt is encouraged to follow-up with an outpatient CD program and also to follow-up with his pmd which he verbalized understanding. Pt is AOX3, in no acute respiratory distress, Full ROM, and ambulatory. Pertinent Past History: h/o asthma, cocaine, and heroin use disorder. - Physical Exam Results Vital Signs: Vital Signs Temperature 97.3 F L 07/25/20 08:42 Pulse Rate 54 L 07/25/20 08:42 Respiratory Rate 18 07/25/20 08:42 Blood Pressure 134/85 07/25/20 08:42 O2 Sat by Pulse Oximetry (%) 97 07/25/20 06:14 Vital Signs 07/25/20 07/25/20 06:14 08:42 Temperature 97.9 F 97.3 F L Pulse Rate 51 L 54 L Respiratory 18 18 Rate Blood Pressure 140/87 134/85 O2 Sat by Pulse 97 Oximetry (%) Laboratory Last Values WBC 6.0 K/mm3 (4.0-10.0) 07/23/20 10:05 RBC 4.17 M/mm3 (4.00-5.60) 07/23/20 10:05 Hgb 12.5 GM/dL (11.7-16.9) 07/23/20 10:05 Hct 37.4 % (35.4-49) 07/23/20 10:05 MCV 89.7 fl (80-96) 07/23/20 10:05 MCH 30.0 pg (25.7-33.7) 07/23/20 10:05 MCHC 33.5 g/dl (32.0-35.9) 07/23/20 10:05 RDW 14.1 % (11.9-15.9) 07/23/20 10:05 Plt Count 302 K/MM3 (134-434) D 07/23/20 10:05 MPV 7.7 fl (7.5-11.1) 07/23/20 10:05 Sodium 141 mmol/L (136-145) 07/23/20 10:05 Potassium 4.5 mmol/L (3.5-5.1) 07/23/20 10:05 Chloride 109 mmol/L (98-107) H 07/23/20 10:05 Carbon Dioxide 29 mmol/L (21-32) 07/23/20 10:05 Anion Gap 4 MMOL/L (8-16) L 07/23/20 10:05 BUN 22.1 mg/dL (7-18) H 07/23/20 10:05 Creatinine 1.0 mg/dL (0.55-1.3) 07/23/20 10:05 Est GFR (CKD-EPI)AfAm 103.42 07/23/20 10:05 Est GFR (CKD-EPI)NonAf 89.23 07/23/20 10:05 Random Glucose 108 mg/dL (74-106) H 07/23/20 10:05 Calcium 8.4 mg/dL (8.5-10.1) L 07/23/20 10:05 Total Bilirubin 0.5 mg/dL (0.2-1) 07/23/20 10:05 AST 22 U/L (15-37) 07/23/20 10:05 ALT 21 U/L (13-61) 07/23/20 10:05 Alkaline Phosphatase 102 U/L (45-117) 07/23/20 10:05 Total Protein 6.7 g/dl (6.4-8.2) 07/23/20 10:05 Albumin 3.4 g/dl (3.4-5.0) 07/23/20 10:05 Syphilis Serology Non-reactive (NONREACTIVE) 07/23/20 10:05 COVID-19 (TIFFANIE) Not detected (Not Detected) 07/23/20 11:00 Labs noted. Pertinent Admission Physical Exam Findings: withdrawal symptoms. - Treatment Hospital Course: Detox Protocol Followed - Medication Discharge Medications: Ambulatory Orders Albuterol Sulfate Inhaler - [Ventolin HFA Inhaler -] 2 inh PO Q4H PRN #1 inhaler 01/14/18 - Diagnosis (1) Nicotine dependence Status: Acute Qualifiers: Nicotine product type: cigarettes Substance use status: uncomplicated Qualified Code(s): F17.210 - Nicotine dependence, cigarettes, uncomplicated (2) Cocaine dependence Status: Chronic Qualifiers: Substance use status: uncomplicated Qualified Code(s): F14.20 - Cocaine dependence, uncomplicated (3) Opioid dependence with withdrawal Status: Acute (4) Asthma Status: Chronic Qualifiers: Asthma severity: mild Asthma persistence: intermittent Asthma complication type: uncomplicated Qualified Code(s): J45.20 - Mild intermittent asthma, uncomplicated - AMA Did Patient Leave Against Medical Advice: Yes BHS COWS - Scale Resting Pulse: 0= [place] 80 or Below Sweatin= Chills/Flushing Restless Observation: 1= Difficult to Sit Still Pupil Size: 0= Normal to Room Light Bone or Joint Aches: 2= Severe Diffuse Aches Runny Nose/ Eye Tearin= None GI Upset > 30mins: 0= None Tremor Observation of Outstretched Hands: 0= None Yawning Observation: 2= >3x During Session Anxiety or Irritability: 2=Irritable/Anxious Goose Flesh Skin: 0=Smooth Skin COWS Score: 8
[2020-07-26] MEDS ORDERED: METHADONE (DETOX) 10 MG, METHADONE (DETOX) 5 MG PO ONE (10:00)
[2020-07-27] MEDS ORDERED: METHADONE HCL 10 MG TABLET (FOR DETOX USE ONLY) PO ONE (10:00)
[2020-07-28] MEDS ORDERED: METHADONE HCL 5 MG TABLET (FOR DETOX USE ONLY) PO ONE (06:00)
== END 2020-07-25 09:25 | disposition left against medical advice (07) | DRG 770 ==
LOC: YASAS 09:08 → Y3N 09:58
PROVIDERS: ADMIT Allergy & Immunology; ATTEND Allergy & Immunology
PROC: HZ2ZZZZ Detoxification Services for Substance Abuse Treatment (ICD-10-PCS; principal; 2020-07-23)
DX: F11.23 Opioid dependence with withdrawal (principal); F14.20 Cocaine dependence, uncomplicated; F17.210 Nicotine dependence, cigarettes, uncomplicated; J45.20 Mild intermittent asthma, uncomplicated; Z91.013 Allergy to seafood; Z59.0 Homelessness
CPT/HCPCS: 36415; 80053; 85027; 86780; 93005; 93010; J0735; U0003

== ENCOUNTER 2020-11-30 09:34 | Inpatient (IN) | payer OTHER ==
[2020-11-30 10:17] VITALS: BMI 22.1
[2020-11-30] MEDS ORDERED: MAGNESIUM CITRATE 300 ML BOTTLE PO PRN (10:42)
[2020-11-30] MEDS ORDERED: MAG HYDROX/AL HYDROX/SIMETH 30 ML UNIT-DOSE CUP PO PRN (10:42)
[2020-11-30] MEDS ORDERED: MENTHOL/PHENOL 1 EACH UD MM PRN (10:42)
[2020-11-30] MEDS ORDERED: MAGNESIUM HYDROX 2400MG/30ML ORAL SUSPENSION 30 ML CUP PO PRN (10:42)
[2020-11-30] MEDS ORDERED: BISMUTH SUBSALICYLATE 524 MG/30 ML UD PO PRN (10:42)
[2020-11-30] MEDS ORDERED: IBUPROFEN 400 MG TABLET (FP) PO PRN (10:42)
[2020-11-30] MEDS ORDERED: METHOCARBAMOL 500 MG TABLET PO PRN (10:42)
[2020-11-30] MEDS ORDERED: NICOTINE POLACRILEX 2 MG GUM BUC PRN (10:42)
[2020-11-30] MEDS ORDERED: cloNIDine HCL 0.1 MG TABLET PO PRN (10:42)
[2020-11-30] MEDS ORDERED: ACETAMINOPHEN 325 MG TABLET (FP) PO PRN ×2 (10:42)
[2020-11-30] MEDS ORDERED: ONDANSETRON *ODT* 4 MG TABLET SL PRN (10:42)
[2020-11-30] MEDS ORDERED: ALBUTEROL SO4 HFA INHALER IH PRN (10:45)
[2020-11-30] MEDS ORDERED: METHADONE HCL 10 MG TABLET (FOR DETOX USE ONLY) PO ONE (11:00)
[2020-11-30] MEDS: PRENATAL VITAMINS W/ FOLIC ACID TABLET (FP) PO SCH (11:30)
[2020-11-30] MEDS: NICOTINE 14 MG/24 HOURS TOPICAL PATCH TD SCH (11:32)
[2020-11-30] MEDS: hydrOXYzine PAMOATE 25 MG CAPSULE (FP) PO SCH ×3 (13:43→22:19)
[2020-11-30 15:58] LABS: POTASSIUM 4.1 mmol/L (3.5-5.1)
[2020-11-30 16:02] LABS: ALBUMIN 3.6 g/dl (3.4-5.0); BLOOD UREA NITROGEN 24.8 mg/dL (7-18); CALCIUM 8.5 mg/dL (8.5-10.1)
[2020-11-30 16:06] LABS: TOT PROT 6.7 g/dl (6.4-8.2)
[2020-11-30 16:10] LABS: HEMOGLOBIN 13.4 GM/dL (11.7-16.9); MCH 30.7 pg (25.7-33.7); MCHC 33.6 g/dl (32.0-35.9); MEAN CELL VOLUME 91.4 fl (80-96); MEAN PLT VOLUME 7.5 fl (7.5-11.1); PLATELET COUNT 262 K/MM3 (134-434); RBC 4.38 M/mm3 (4.00-5.60); RDW 13.9 % (11.9-15.9); WHITE BLOOD COUNT 5.4 K/mm3 (4.0-10.0)
[2020-11-30] MEDS ORDERED: THIAMINE HCL 100 MG TABLET (FP) PO SCH (22:00)
[2020-11-30] MEDS ORDERED: MELATONIN 5 MG TABLETS PO SCH (22:00)
[2020-12-01] MEDS: hydrOXYzine PAMOATE 25 MG CAPSULE (FP) PO SCH ×2 (06:04→10:47)
[2020-12-01 09:16] VITALS: BP 128/85; PULSE 54; TEMP 98
[2020-12-01] MEDS ORDERED: METHADONE (DETOX) 20 MG, METHADONE (DETOX) 5 MG PO ONE (10:00)
[2020-12-01] MEDS ORDERED: METHADONE HCL 5 MG TABLET (FOR DETOX USE ONLY) ONE (10:04)
[2020-12-01] MEDS ORDERED: METHADONE HCL 10 MG TABLET (FOR DETOX USE ONLY) ONE (10:04)
[2020-12-01] MEDS: PRENATAL VITAMINS W/ FOLIC ACID TABLET (FP) PO SCH (10:47)
[2020-12-01] MEDS: NICOTINE 14 MG/24 HOURS TOPICAL PATCH TD SCH (10:47)
[2020-12-02] MEDS ORDERED: METHADONE HCL 10 MG TABLET (FOR DETOX USE ONLY) PO ONE (10:00)
[2020-12-03] MEDS ORDERED: METHADONE (DETOX) 10 MG, METHADONE (DETOX) 5 MG PO ONE (10:00)
[2020-12-04] MEDS ORDERED: METHADONE HCL 10 MG TABLET (FOR DETOX USE ONLY) PO ONE (10:00)
[2020-12-05] MEDS ORDERED: METHADONE HCL 5 MG TABLET (FOR DETOX USE ONLY) PO ONE (06:00)
== END 2020-12-01 10:20 | disposition left against medical advice (07) | DRG 770 ==
LOC: YASAS 09:34 → Y3N 10:32
PROVIDERS: ADMIT Allergy & Immunology; ATTEND Allergy & Immunology
PROC: HZ2ZZZZ Detoxification Services for Substance Abuse Treatment (ICD-10-PCS; principal; 2020-11-30)
DX: F11.23 Opioid dependence with withdrawal (principal); F12.20 Cannabis dependence, uncomplicated; F17.210 Nicotine dependence, cigarettes, uncomplicated; J45.20 Mild intermittent asthma, uncomplicated; Z91.013 Allergy to seafood
CPT/HCPCS: 36415; 80053; 85027; 86780; 93005; 93010; C9803; U0003

== ENCOUNTER 2021-07-06 11:20 | Inpatient (IN) | payer OTHER ==
[2021-07-07] MEDS ORDERED: MAGNESIUM CITRATE 300 ML BOTTLE PO PRN (13:02)
[2021-07-07] MEDS ORDERED: MAGNESIUM HYDROX 2400MG/30ML ORAL SUSPENSION 30 ML CUP PO PRN (13:02)
[2021-07-07] MEDS ORDERED: ACETAMINOPHEN 325 MG TABLET (FP) PO PRN ×2 (13:02)
[2021-07-07] MEDS ORDERED: BISMUTH SUBSALICYLATE 524 MG/30 ML PO PRN (13:02)
[2021-07-07] MEDS ORDERED: ONDANSETRON *ODT* 4 MG TABLET SL PRN (13:02)
[2021-07-07] MEDS ORDERED: MENTHOL/PHENOL 1 EACH UD MM PRN (13:02)
[2021-07-07] MEDS ORDERED: IBUPROFEN 400 MG TABLET (FP) PO PRN (13:02)
[2021-07-07] MEDS ORDERED: MAG HYDROX/AL HYDROX/SIMETH 30 ML UNIT-DOSE CUP PO PRN (13:02)
[2021-07-07] MEDS ORDERED: NICOTINE 10 MG CARTRIDGE (INHALER) IH PRN (13:02)
[2021-07-07] MEDS ORDERED: methaDONE HCL 10 MG TABLET (FOR DETOX USE ONLY) PO ONE (13:45)
[2021-07-07] MEDS: METHOCARBAMOL 500 MG TABLET PO PRN (13:59)
[2021-07-07] MEDS: cloNIDine HCL 0.1 MG TABLET PO PRN (13:59)
[2021-07-07] MEDS: diazePAM 5 MG TABLET PO PRN ×2 (13:59→22:18)
[2021-07-07] MEDS: PRENATAL VITAMINS W/ FOLIC ACID TABLET (FP) PO SCH (14:00)
[2021-07-07] MEDS: NICOTINE 21 MG/24 HOURS TOPICAL PATCH TD SCH (14:00)
[2021-07-07 17:16] LABS: HEMATOCRIT 44.5 % (35.4-49); HEMOGLOBIN 15.1 GM/dL (11.7-16.9); MCH 30.1 pg (25.7-33.7); MCHC 33.9 g/dl (32.0-35.9); MEAN PLT VOLUME 7.3 fl (7.5-11.1); PLATELET COUNT 275 10^3/uL (134-434); RDW 13.6 % (11.9-15.9)
[2021-07-07 17:26] LABS: ALBUMIN 3.7 g/dl (3.4-5.0); BLOOD UREA NITROGEN 9.7 mg/dL (7-18); CALCIUM 8.9 mg/dL (8.5-10.1)
[2021-07-07 17:28] LABS: CREATININE 0.8 mg/dL (0.55-1.3)
[2021-07-07 17:31] LABS: BILIRUBIN,TOTAL 0.6 mg/dL (0.2-1); TOT PROT 7.4 g/dl (6.4-8.2)
[2021-07-07] MEDS: THIAMINE HCL 100 MG TABLET (FP) PO SCH (22:16)
[2021-07-07] MEDS: MELATONIN 5 MG TABLETS PO SCH (22:16)
[2021-07-08] MEDS: hydrOXYzine PAMOATE 25 MG CAPSULE (FP) PO PRN (03:08)
[2021-07-08] MEDS: METHOCARBAMOL 500 MG TABLET PO PRN ×2 (03:08→10:49)
[2021-07-08] MEDS ORDERED: methaDONE HCL 10 MG TABLET (FOR DETOX USE ONLY) ONE (09:59)
[2021-07-08] MEDS ORDERED: methaDONE HCL 10 MG TABLET (FOR DETOX USE ONLY) PO ONE (10:45)
[2021-07-08] MEDS: cloNIDine HCL 0.1 MG TABLET PO PRN ×2 (10:49→22:27)
[2021-07-08] MEDS: diazePAM 5 MG TABLET PO PRN (10:49)
[2021-07-08] MEDS: NICOTINE 21 MG/24 HOURS TOPICAL PATCH TD SCH (10:49)
[2021-07-08] MEDS: PRENATAL VITAMINS W/ FOLIC ACID TABLET (FP) PO SCH (10:49)
[2021-07-08] MEDS: MELATONIN 5 MG TABLETS PO SCH (21:16)
[2021-07-08] MEDS: THIAMINE HCL 100 MG TABLET (FP) PO SCH (21:16)
[2021-07-09] MEDS: diazePAM 5 MG TABLET PO PRN ×3 (03:04→22:38)
[2021-07-09] MEDS ORDERED: methaDONE HCL 10 MG TABLET (FOR DETOX USE ONLY) ONE (10:03)
[2021-07-09] MEDS: PRENATAL VITAMINS W/ FOLIC ACID TABLET (FP) PO SCH (10:27)
[2021-07-09] MEDS: METHOCARBAMOL 500 MG TABLET PO PRN ×2 (10:27→22:36)
[2021-07-09] MEDS: NICOTINE 21 MG/24 HOURS TOPICAL PATCH TD SCH (10:27)
[2021-07-09] MEDS: cloNIDine HCL 0.1 MG TABLET PO PRN (10:28)
[2021-07-09] MEDS: MELATONIN 5 MG TABLETS PO SCH (22:36)
[2021-07-09] MEDS: THIAMINE HCL 100 MG TABLET (FP) PO SCH (22:36)
[2021-07-10] MEDS ORDERED: methaDONE HCL 10 MG TABLET (FOR DETOX USE ONLY) PO ONE (10:00)
[2021-07-10] MEDS: PRENATAL VITAMINS W/ FOLIC ACID TABLET (FP) PO SCH (10:54)
[2021-07-10] MEDS: diazePAM 5 MG TABLET PO PRN (10:55)
[2021-07-10] MEDS: NICOTINE 21 MG/24 HOURS TOPICAL PATCH TD SCH (11:24)
[2021-07-10] MEDS: THIAMINE HCL 100 MG TABLET (FP) PO SCH (22:15)
[2021-07-10] MEDS: METHOCARBAMOL 500 MG TABLET PO PRN (22:15)
[2021-07-10] MEDS: hydrOXYzine PAMOATE 25 MG CAPSULE (FP) PO PRN (22:15)
[2021-07-10] MEDS: MELATONIN 5 MG TABLETS PO SCH (22:15)
[2021-07-11] MEDS: PRENATAL VITAMINS W/ FOLIC ACID TABLET (FP) PO SCH (10:08)
[2021-07-11] MEDS: NICOTINE 21 MG/24 HOURS TOPICAL PATCH TD SCH (10:08)
[2021-07-11 10:41] VITALS: BP 127/68; PULSE 69; TEMP 96.9
== END 2021-07-11 10:05 | disposition home or self-care (01) | DRG 773 ==
LOC: YASAS 11:20 → Y3N 14:04
PROVIDERS: ADMIT Allergy & Immunology; ATTEND Allergy & Immunology
PROC: HZ2ZZZZ Detoxification Services for Substance Abuse Treatment (ICD-10-PCS; principal; 2021-07-06)
DX: F11.23 Opioid dependence with withdrawal (principal); F14.20 Cocaine dependence, uncomplicated; F12.20 Cannabis dependence, uncomplicated; F17.210 Nicotine dependence, cigarettes, uncomplicated; F19.24 Other psychoactive substance dependence with psychoactive substance-induced mood disorder; J45.20 Mild intermittent asthma, uncomplicated; Z59.0 Homelessness; Z91.013 Allergy to seafood
CPT/HCPCS: 36415; 80053; 85027; 86780; 93005; 93010; C9803; J0735; U0003; U0005